=== PATIENT | male | born 1980 ===

== ENCOUNTER 2017-08-12 15:09 | Inpatient (IN) | payer OTHER ==
[2017-08-12] MEDS ORDERED: Sodium Chloride 0.9% 1,000 ML IV STA (16:08)
[2017-08-12] MEDS ORDERED: Piperacillin/Tazobact 3.375 GM in Sodium Chloride 0.9% 100 ML IVPB STA (16:35)
[2017-08-12 16:36] LABS: VENOUS BLOOD GAS BASE EXCESS -12.2 mmol/L (0.0-2.0); VENOUS BLOOD GAS PCO2 62 mmHg (40-60); VENOUS BLOOD GAS PO2 48 mm/Hg (30-55); VENOUS BLOOD PH 7.08 (7.32-7.43)
[2017-08-12] MEDS ORDERED: Vancomycin 1 g Inj ONE (16:43)
[2017-08-12] MEDS ORDERED: Piperacillin/Tazobact 3.375 gm Inj IVPB ONE (16:43)
--- NOTE | 2017-08-12 16:43 | RAD ---
HISTORY: Sepsis Patient COMPARISON: 2015 FINDINGS: LUNGS: No active pulmonary disease. PLEURA: No significant pleural effusion identified, no pneumothorax apparent. CARDIOVASCULAR: Normal. OSSEOUS STRUCTURES: No significant abnormalities. VISUALIZED UPPER ABDOMEN: Normal. OTHER FINDINGS: None. IMPRESSION: No active disease.
[2017-08-12 16:48] LABS: ABG ALLEN TEST YES; ARTERIAL BLOOD GAS HEMOGLOBIN 16.8 g/dL (11.7-17.4); ARTERIAL BLOOD GAS O2 CAPACITY 22.4 mL/dL (16-24); ARTERIAL BLOOD GAS O2 CONTENT 21.6 ML/dL (15-23); ARTERIAL BLOOD GAS O2 SAT 96.6 % (95-98); ARTERIAL BLOOD GAS PCO2 34 mm/Hg (35-45); ARTERIAL BLOOD GAS PH 7.41 (7.35-7.45); ARTERIAL BLOOD GAS PO2 78 mm/Hg (80-100); ARTERIAL BLOOD GAS TCO2 22.6 mmol/L (22-28)
[2017-08-12 17:23] LABS: BASO # 0.1 K/uL (0.0-0.2); BASO % 0.6 % (0.0-2.0); EOS # 0.1 K/uL (0.0-0.7); EOS % 0.4 % (0.0-4.0); HEMOGLOBIN 17.7 g/dL (12.0-18.0); LYMPH # 3.6 K/uL (1.0-4.3); LYMPH % 23.3 % (20.0-40.0); MEAN CELL VOLUME 91.4 fl (80.0-94.0); MEAN CORPUSCULAR HEMOGLOBIN 33.2 pg (27.0-31.0); MEAN CORPUSCULAR HGB CONC 36.3 g/dL (33.0-37.0); MEAN PLATELET VOLUME 13.3 fl (7.2-11.7); MONO # 0.7 K/uL (0.0-0.8); MONO % 4.8 % (0.0-10.0); NEUT # 11.1 K/uL (1.8-7.0); NEUT % 70.9 % (50.0-75.0); NRBC % 1.7 % (0.0-0.0); RBC 5.33 Mil/uL (4.40-5.90); RED CELL DISTRIBUTION WIDTH 12.9 % (11.5-14.5); WHITE BLOOD COUNT 15.6 K/uL (4.8-10.8)
[2017-08-12 17:28] LABS: INR 1.1 (0.9-1.2); PARTIAL THROMBOPLASTIN TIME 32.6 Seconds (25.6-37.1); PROTHROMBIN TIME 11.8 Seconds (9.8-13.1)
[2017-08-12 17:49] LABS: BLOOD UREA NITROGEN 17 mg/dl (9-20)
[2017-08-12] MEDS ORDERED: Insulin Regular 100 units/ml IV STA (17:49)
[2017-08-12 17:50] LABS: CALCIUM 10.6 mg/dL (8.4-10.2); GFR AFRICAN-AMERICAN > 60; GFR NON-AFRICAN AMERICAN > 60
[2017-08-12 17:51] LABS: ALB/GLOB RATIO 0.7 (1.0-2.1); ALBUMIN 4.8 g/dL (3.5-5.0); AST/SGOT 59 U/L (17-59)
[2017-08-12 17:52] LABS: ALT/SGPT 69 U/L (21-72); LIPASE 67 U/L (23-300)
[2017-08-12] MEDS ORDERED: Glucagon Recombinant 1 mg Inj IM PRN (17:53)
[2017-08-12] MEDS ORDERED: Dextrose 50% SYRINGE Inj (50 ml) IV PRN (17:53)
[2017-08-12] MEDS ORDERED: Sodium Chloride 0.9% 1,000 ML IV SCH (18:00)
--- NOTE | 2017-08-12 18:00 | ED PDOC ---
HPI: General Adult Time Seen by Provider: 08/12/17 15:47 Chief Complaint (Nursing): Flu-like Symptoms Chief Complaint (Provider): Flu-like Symptoms History Per: Patient History/Exam Limitations: no limitations Additional Complaint(s): 36 year old male with a past medical history of diabetes (insulin dependant and compliant),presents to the emergency department with a complaint of chills, lower back, and leg pain x2 days. Associated with sweats, chills, and body aches. Patient has a history of sciatica to the right side that radiates from the lower back to the right leg. Patient is currently on Percocet for pain and goes to pain management. Denies fever. Patient reports he can not recall if he took his insulin yesterday. PMD: Dr. Mo Canas MD Past Medical History Reviewed: Historical Data, Nursing Documentation, Vital Signs Vital Signs: Last Vital Signs Temp 98.7 F 08/12/17 18:18 Pulse 120 H 08/12/17 18:18 Resp 17 08/12/17 18:18 BP 136/92 H 08/12/17 18:18 Pulse Ox 95 08/12/17 18:58 - Medical History PMH: Arthritis, Back Problems (SCIATICA), Diabetes (type II), HTN, Hypercholesterolemia Denies: Anxiety, Bipolar Disorder, Depression, HIV, Personality Disorder, Post Traumatic Stress Disorder, Chronic Kidney Disease, Schizophrenia - Surgical History Surgical History: No Surg Hx - Family History Family History: States: Unknown Family Hx - Immunization History Hx Tetanus Toxoid Vaccination: No Hx Influenza Vaccination: No Hx Pneumococcal Vaccination: No - Allergies Allergies/Adverse Reactions: Allergies Allergy/AdvReac Type Severity Reaction Status Date / Time No Known Allergies Allergy Verified 06/08/16 16:24 Review of Systems ROS Statement: Except As Marked, All Systems Reviewed And Found Negative (As per HPI, otherwise negative) Constitutional: Positive for: Chills, Sweats, Other (Body aches). Negative for : Fever Musculoskeletal: Positive for: Back Pain (Lower), Leg Pain Physical Exam - Reviewed Nursing Documentation Reviewed: Yes Vital Signs Reviewed: Yes - Physical Exam Appears: Positive for: Non-toxic, No Acute Distress (Not appearing well) Head Exam: Positive for: ATRAUMATIC, NORMAL INSPECTION, NORMOCEPHALIC Skin: Positive for: Warm, Diaphoresis Eye Exam: Positive for: Normal appearance, EOMI, PERRL Neck: Positive for: Normal, Painless ROM, Supple Cardiovascular/Chest: Positive for: Regular Rate, Rhythm, Tachycardia (with regular rhythm). Negative for: JVD, Murmur Respiratory: Positive for: Normal Breath Sounds. Negative for: Accessory Muscle Use, Respiratory Distress Gastrointestinal/Abdominal: Positive for: Normal Exam, Soft. Negative for: Tenderness Back: Positive for: Other (Lower right back tenderness to the paraspinal region with upper buttock point tenderness). Negative for: Normal Inspection Extremity: Positive for: Normal ROM. Negative for: Pedal Edema Neurologic/Psych: Positive for: Alert, Oriented (x3) - Laboratory Results Result Diagrams: 08/12/17 16:45 08/12/17 16:45 - ECG ECG: Positive for: Interpreted By Me, Viewed By Me ECG Rhythm: Positive for: Normal QRS, Normal ST Segment, Sinus Rhythm, Sinus Tachycardia. Negative for: ST/T Changes Rate: 124 O2 Sat by Pulse Oximetry: 95 (RA) Pulse Ox Interpretation: Normal - Radiology X-Ray: Viewed By Me, Read By Radiologist X-Ray Interpretation: No Acute Disease - Physician Consult Information Physician Contacted: Roshan Kim - Critical Care Total Time (In Min): 60 Documented Critical Care: Time excludes all time spent performint seperately billable procedures Medical Decision Making Medical Decision Making: Time:160 Initial impression: Infectious process and sciatica differential include influenza, urinary tract infection (UTI), sepsis, and other sources of infection such as pneumonia and abdominal pathology. Also consider diabetic ketoacidosis (DKA) because patient is hyperglycemic. Initial plan: EKG Morphine 4 mg IV Sodium Chloride 1L IV Zofran 4 gm IV Abdomen & pelvis CT reevaluation Time:1641 --Chest x-ray FINDINGS: LUNGS: No active pulmonary disease. PLEURA: No significant pleural effusion identified, no pneumothorax apparent. CARDIOVASCULAR: Normal. OSSEOUS STRUCTURES: No significant abnormalities. VISUALIZED UPPER ABDOMEN: Normal. OTHER FINDINGS: None. IMPRESSION: No active disease. Time: 164 CBC w/ diff Erythrocyte Sedimentation Vancomycin 1 gm IV Piperacillin 3.375 gm IVPB Blood culture Urine Culture WBC: 15.6 (High) Time: 1710 Urine DIP Influenza AB Time: 1749 --Insulin 10 UNITS IV Time: 2000 VBG Shock Panel 1700 History, exam, and labs are consistent with SIRS and DKA. There is no apparent source of infection thus there is no sepsis although suspicion still exists at this early stage. Elevated lactic acid is contributed to DKA and dehydration. I discussed case with blast furnace supervisor Dr Kim who agrees there are no criteria for sepsis with septic shock at this time. Time: 1754 -- Spoke to [employer] Dr. Kim for admission for DKA and SIRS under the care of PCP. --Admission as inpatient in intensive care for DKA, SIRS, and possible Sepsis under the care of Dr. Mo Canas MD Scribe Attestation: Documented by Alayna Styles, acting as a scribe for Kamryn Jackson MD. Provider Scribe Attestation: All medical record entries made by the Scribe were at my direction and personally dictated by me. I have reviewed the chart and agree that the record accurately reflects my personal performance of the history, physical exam, medical decision making, and the department course for this patient. I have also personally directed, reviewed, and agree with the discharge instructions and disposition. Disposition - Clinical Impression Clinical Impression: SIRS (systemic inflammatory response syndrome), DKA (diabetic ketoacidoses), Sciatica neuralgia - Patient ED Disposition Is Patient to be Admitted: Yes Discussed With Dr.: Mo Canas Doctor Will See Patient In The: Hospital Counseled Patient/Family Regarding: Studies Performed, Diagnosis - Disposition Disposition Time: 17:00 Condition: SERIOUS - Pt Status Changed To: Hospital Disposition Of: Inpatient - Admit Certification Admit to Inpatient:: After my assessment, the patient will require hospitalization for at least two midnights. This is because of the severity of symptoms shown, intensity of services needed, and/or the medical risk in this patient being treated as an outpatient. - POA Present On Arrival: Poor Glycemic Control
[2017-08-12] MEDS ORDERED: Insulin Regular 100 units/ml ONE (18:09)
[2017-08-12] MEDS ORDERED: Oxycodone/Acetaminophen 5/325 mg Tab PO PRN ×2 (18:41→21:55)
[2017-08-12] MEDS ORDERED: Sodium Chloride 0.9% 50 ML IV ONE (18:47)
[2017-08-12] MEDS ORDERED: Iohexol 300 100 ML IJ ONE (18:47)
[2017-08-12] MEDS ORDERED: Oxycodone/Acetaminophen 5/325 mg Tab ONE (19:36)
[2017-08-12 20:49] LABS: VENOUS BLOOD GAS BASE EXCESS 1.9 mmol/L (0.0-2.0); VENOUS BLOOD GAS PCO2 41 mmHg (40-60); VENOUS BLOOD GAS PO2 50 mm/Hg (30-55); VENOUS BLOOD PH 7.42 (7.32-7.43)
[2017-08-12] MEDS: Sodium Chloride 0.9% 1,000 ML IV SCH (22:00)
[2017-08-13] MEDS: Oxycodone/Acetaminophen 5/325 mg Tab PO PRN ×6 (00:15→21:59)
[2017-08-13 00:48] VITALS: BMI 30.5
[2017-08-13] MEDS ORDERED: Oxycodone/Acetaminophen 5/325 mg Tab PO SCH (01:00)
[2017-08-13 01:06] LABS: URINE BILIRUBIN NEGATIVE (NEGATIVE); URINE BLOOD NEGATIVE (NEGATIVE); URINE CLARITY CLEAR (Clear); URINE COLOR YELLOW (YELLOW); URINE GLUCOSE (UA) >=500 mg/dL (Normal); URINE LEUKOCYTE ESTERASE NEG Leu/uL (Negative); URINE NITRATE NEGATIVE (NEGATIVE); URINE PROTEIN NEGATIVE (NEGATIVE); URINE UROBILINOGEN 0.2-1.0 mg/dL (0.2-1.0)
[2017-08-13 01:21] LABS: BARBITURATES, UR NEGATIVE (NEGATIVE); PHENCYCLIDINE, UR NEGATIVE (NEGATIVE)
[2017-08-13 01:22] LABS: BENZODIAZEPINES, UR POSITIVE (NEGATIVE); OPIATES, UR POSITIVE (NEGATIVE)
[2017-08-13] MEDS: Sodium Chloride 0.9% 1,000 ML IV SCH (02:30)
[2017-08-13 06:26] LABS: HEMOGLOBIN 13.5 g/dL (12.0-18.0); MEAN CELL VOLUME 91.4 fl (80.0-94.0); MEAN CORPUSCULAR HEMOGLOBIN 31.5 pg (27.0-31.0); MEAN CORPUSCULAR HGB CONC 34.5 g/dL (33.0-37.0); RBC 4.27 Mil/uL (4.40-5.90); WHITE BLOOD COUNT 12.3 K/uL (4.8-10.8)
[2017-08-13 06:37] LABS: ALBUMIN 3.7 g/dL (3.5-5.0); ALT/SGPT 51 U/L (21-72); AST/SGOT 35 U/L (17-59); BLOOD UREA NITROGEN 13 mg/dl (9-20); CALCIUM 8.5 mg/dL (8.4-10.2); GFR AFRICAN-AMERICAN > 60; GFR NON-AFRICAN AMERICAN > 60
[2017-08-13] MEDS ORDERED: Insulin Detemir 100 Units/ml Inj SC STA (07:40)
--- NOTE | 2017-08-13 11:38 | CT ---
PROCEDURE: CT Abdomen and Pelvis with contrast HISTORY: vomiting back pain COMPARISON: None. TECHNIQUE: Contrast dose: 98 cc Omnipaque Radiation dose: Total exam DLP = 989 mGy-cm. This CT exam was performed using one or more of the following dose reduction techniques: Automated exposure control, adjustment of the mA and/or kV according to patient size, and/or use of iterative reconstruction technique. FINDINGS: LOWER THORAX: Lungs are clear. No effusion is seen. No pericardial effusion is noted. Visualized esophagus is unremarkable. Visualized stomach is within normal limits. LIVER: Liver is enlarged and abnormally decreased in overall density consistent with moderate fatty infiltration. No focal liver mass or intrahepatic ductal dilatation is noted. Noted in the columba hepatis region are nonspecific mildly enlarged lymph nodes, for example on axial image 27 series 2 there is a 2.6 centimeter by 1.3 centimeter lymph node. GALLBLADDER AND BILE DUCTS: Gallbladder slightly distended without wall thickening or gallstones. Common bile duct is normal in size. No intrahepatic ductal dilatation is noted. PANCREAS: Unremarkable. No gross lesion or ductal dilatation. SPLEEN: Unremarkable. ADRENALS: Unremarkable. No mass. KIDNEYS AND URETERS: Unremarkable. No hydronephrosis. No solid mass. VASCULATURE: Unremarkable. No aortic aneurysm. BOWEL: Unremarkable. No obstruction. No gross mural thickening. No bowel obstruction or pericolonic inflammatory change is seen. APPENDIX: Normal appendix. PERITONEUM: No ascites is seen. No significant mesenteric adenopathy is noted. No pelvic or inguinal adenopathy is seen. LYMPH NODES: Unremarkable. No enlarged lymph nodes. BLADDER: Distended bladder without wall thickening. REPRODUCTIVE: No inguinal hernias. Normal prostate gland. BONES: Mild degenerative disc disease at L5-S1 with chronic disc osteophyte complex noted. Lesser degree at L4-5. No lytic lesion OTHER FINDINGS: No inguinal hernias. IMPRESSION: Moderate nonspecific diffuse fatty infiltration of the liver without focal mass or intrahepatic ductal dilatation. Mildly enlarged columba hepatis lymph nodes, also nonspecific. No appreciable acute inflammatory process in the abdomen or pelvis. No appreciable pancreatitis. No evidence of cholecystitis. No perinephric changes seen. No colitis. This agrees with preliminary report provided by the on-call radiologist from [facility].
--- NOTE | 2017-08-13 11:53 | CARD ---
APPROVED REPORT EKG Measurement Heart [id number] ID [id number] <Conclusion> Sinus tachycardia Possible Left atrial enlargement Borderline ECG
[2017-08-13] MEDS: Insulin Regular 100 units/ml SC SCH ×3 (12:25→22:06)
--- NOTE | 2017-08-13 15:47 | HP ---
HISTORY OF PRESENT ILLNESS: Mr. Rosales is a 36-year-old male who was admitted via the emergency room after he showed up complaining of fever with chills for 2 days prior to presentation. He also has history of back pains, which have worsened over the past several days. He was evaluated in the emergency room and found to have diabetic ketoacidosis requiring intensive care workup and therapy. His blood sugar was 471. He appeared dehydrated and was acidotic. PAST MEDICAL HISTORY: Diabetes mellitus and there is a question of followup and therapy. He also has back pain due to sciatica and arthritis and hyperlipidemia. FAMILY HISTORY: Noncontributory. SOCIAL HISTORY: He does not drink or smoke and lives at home with . REVIEW OF SYSTEMS: Essentially unremarkable except for back pains. PHYSICAL EXAMINATION: GENERAL: The patient is alert, oriented, appears to have improved following IV hydration and insulin drip. VITAL SIGNS: On admission, blood pressure 136/92 with a pulse of 120, respiratory rate was 17 per minute, O2 sat 95% on room air, temperature 98.7 degrees Fahrenheit. HEENT: Mouth, dry oral mucosa. JVP flat. Eyes are sunken. LUNGS: Clear. HEART: Regular with tachycardia. ABDOMEN: Soft, nontender. No organomegaly. EXTREMITIES: No edema or cyanosis. CENTRAL NERVOUS SYSTEM: Grossly intact. SKIN: Showed poor turgor. LABORATORY DATA: Remarkable for WBC of 15.6, hemoglobin 17.7, platelet count 397,000. Sodium 136, potassium 5.9, BUN 17, creatinine 0.7, serum glucose 471. Venous blood gas; pH 7.0, pCO2 of 62, bicarbonate 14.5, and pO2 of 77.7 saturation. Chest x-ray shows no acute cardiopulmonary pathology. IMPRESSION: Diabetic ketoacidosis, probably secondary to some form of infection, source of infection to be determined. PLAN: Intravenous hydration and insulin drip. We would obtain Endocrinology evaluation. Empiric antibiotic therapy already started following john cultures. Further therapy will depend on findings. The patient is advised compliance to medication and diet Mo Canas MD
[2017-08-14] MEDS: Oxycodone/Acetaminophen 5/325 mg Tab PO PRN ×5 (04:51→22:02)
[2017-08-14 06:26] LABS: BASO % 0.4 % (0.0-2.0); EOS # 0.2 K/uL (0.0-0.7); EOS % 2.2 % (0.0-4.0); HEMOGLOBIN 13.6 g/dL (12.0-18.0); LYMPH # 3.8 K/uL (1.0-4.3); LYMPH % 41.3 % (20.0-40.0); MEAN CELL VOLUME 93.6 fl (80.0-94.0); MEAN CORPUSCULAR HEMOGLOBIN 31.6 pg (27.0-31.0); MEAN CORPUSCULAR HGB CONC 33.8 g/dL (33.0-37.0); MEAN PLATELET VOLUME 11.2 fl (7.2-11.7); MONO % 11.3 % (0.0-10.0); NEUT # 4.1 K/uL (1.8-7.0); NEUT % 44.8 % (50.0-75.0); NRBC % 0.1 % (0.0-0.0); RBC 4.31 Mil/uL (4.40-5.90); RED CELL DISTRIBUTION WIDTH 12.9 % (11.5-14.5); WHITE BLOOD COUNT 9.1 K/uL (4.8-10.8)
[2017-08-14 06:40] LABS: GFR AFRICAN-AMERICAN > 60; GFR NON-AFRICAN AMERICAN > 60
[2017-08-14 06:48] LABS: BLOOD UREA NITROGEN 11 mg/dl (9-20)
[2017-08-14] MEDS: Insulin Regular 100 units/ml SC SCH (08:00)
--- NOTE | 2017-08-14 08:42 | PN ---
DATE: 08/13/2017 LOCATION: Patient in ICU, bed 434. TIME SPENT: 35 minutes. SUBJECTIVE: Patient is seen and evaluated at the bed side. Events since admission are reviewed. Overnight, on insulin drip protocol. Remained normotensive, afebrile. No new complaints other than pain on the right leg. This morning alert, awake, follows commands appropriate, feels hungry. No other complaints. PHYSICAL EXAMINATION: VITAL SIGNS: Temperature 97.4, heart rate 109, respiratory rate 14, blood pressure 113/74, oxygen saturation 95%. Intake 1525, output 550, positive balance 975. Weight 195 pounds. HEAD, EYES, EARS, NOSE, AND THROAT: Pupils are reactive. Conjunctivae are pink. Sclerae are white. NECK: Supple. Trachea is central. CHEST: Bilateral breath sounds. Clear to auscultation. HEART: Rhythm regular. S1, S2 normal intensity. No S3, S4 gallop. No audible murmur. ABDOMEN: Bowel sounds present. Soft. Liver and spleen not palpable. Bladder not distended. EXTREMITIES: No clubbing, cyanosis, edema. NEUROLOGIC: Nonfocal. CURRENT MEDICATIONS: Glipizide 10 mg p.o. b.i.d.; metformin 500 mg b.i.d.; Accu-Chek with regular insulin coverage; oxycodone with acetaminophen 5/325 mg two tablets p.o. p.r.n. for severe pain, one tablet q. 4 p.r.n. for moderate pain. LABORATORY DATA: WBC 12.3, hemoglobin 13.5, hematocrit 39, platelet count 177; PT 11.8, INR 1.1, PTT 32.6. ABG: pH 7.42, pCO2 of 41. Random sodium 133, chloride of 102, glucose 331. SMA-7: Sodium 137, potassium 4.1, chloride 101, CO2 of 27, blood urea nitrogen 13, creatinine 0.6, random glucose 253, calcium 8.5. Total bilirubin 0.5, AST 35, ALT 51, alkaline phosphatase 90, total protein 7.6, albumin 3.7, lipase 67. Urine drug screen positive for benzodiazepine and opiates. Serology: Influenza A and B are negative. Microbiology: None reported. Chest x-ray: Unremarkable. Abdominal and pelvis CT done, report pending. IMPRESSION: A 36-year-old male with history of insulin-requiring diabetes mellitus type 2, chronic back ache/sciatica, admitted with diabetic ketoacidosis, now resolved. PLAN: Discontinue insulin drip, given Levemir at 20 units. Follow with Accu-Chek with regular insulin coverage. Add metformin and glyburide taking at home and Endocrinology consult requested to optimize his medications before discharge. Continue Percocet for chronic back ache. Patient can be transferred to med/surgical floor for optimization of his blood sugar control. Roshan Kim MD
--- NOTE | 2017-08-14 08:44 | CON ---
DATE: 08/12/2017 CRITICAL CARE CONSULTATION HISTORY OF PRESENT ILLNESS: The patient is being admitted to ICU. The patient is seen and evaluated at the bedside. Events in ER discussed with ER physician. A 36-year-old male with past medical history significant for diabetes mellitus type 2, requiring insulin; hypertension; hyperlipidemia and chronic backache diagnosed as sciatica, being followed by Dr. Arora as outpatient, has been on morphine sulfate, Percocet, cyclobenzaprine, diazepam, in addition to his atorvastatin for hyperlipidemia, glipizide, metformin and Humalog insulin three times a day for diabetes mellitus type 2. The patient fills up the narcotics from [facility] and rest of the other medications from [facility] pharmacy. Reports that patient picked up Humalog insulin on , glipizide and metformin on August 02. As he ran out his pain medications and as he was feeling feverish with chills, came to Emergency Room. In ER, the patient's vital signs showed a temperature 98.7, heart rate 122, respiratory rate 21, blood pressure 120/97, pulse oximetry 95%. Initial lab data showed leukocytosis, high anion gap, metabolic acidosis with hyperglycemia and elevated lactate level. Chest x-ray showed no acute infiltrate. Influenza A and B pending. The patient is admitted to ICU for evaluation of diabetic ketoacidosis with high anion gap metabolic acidosis and for possible narcotic withdrawal. ALLERGIES: NONE. FAMILY HISTORY: Noncontributory. SOCIAL HISTORY: Denies smoking or drinking alcohol. Denies recreational drug use. PHYSICAL EXAMINATION: GENERAL: Well-built male, in no acute distress, alert and oriented to name, place and time. VITAL SIGNS: Temperature 98.7, heart rate 120, blood pressure 136/92, mean arterial pressure 106, respiratory rate of 17, thoracoabdominal, saturating 97%. HEAD, EYES, EARS, NOSE AND THROAT: Pupils reactive. Conjunctivae pink. Sclerae white. NECK: Supple. Trachea central. CHEST: Bilateral breath sounds. Clear to auscultation. HEART: Rhythm regular. S1, S2 normal intensity, but rapid. No S3, S4 gallop. No audible murmur. ABDOMEN: Bowel sounds present, soft. Liver and spleen not palpable. Bladder not distended. EXTREMITIES: No clubbing, no cyanosis. SLR negative. NEUROLOGIC: No cranial nerve deficit. No motor sensory impairment. Patellar 2+. Plantar flexor. LABORATORY DATA: WBC 15.6, hemoglobin 17.5, hematocrit 48.7, platelet count of 397, neutrophils 70.9, lymphocytes 23.3, monocytes 4.8. PT 11.8, INR 1.1, PTT 32.6. ABG, pH 7.41, pCO2 34, pO2 78, oxygen saturation 96.6%. SMA-7: Sodium 136, potassium 5.9, chloride 91, CO2 15, blood urea nitrogen 17, creatinine 0.7, random glucose 471, calcium 10.6. Total bilirubin 1.8, AST 59, ALT 69, alkaline phosphatase 158, total protein 11.6, albumin 4.8, lipase 67. Influenza A and B negative. Microbiology blood culture report pending. Chest x-ray, no acute infiltrate. IMPRESSION: A 36-year-old male with history significant for insulin requiring diabetes mellitus type 2, hyperlipidemia, sciatica, on multiple narcotics, presenting with feeling feverish and chill, and pain on right leg, not worse than from his previous pain for 3 years, noted to have hyperglycemia with high anion gap metabolic acidosis. No clear evidence of infection. Lipase is within normal limits, noted abnormal liver functions probably related to fatty liver, needs further workup. Treat for diabetic ketoacidosis with IV hydration, regular insulin drip. Continue gastrointestinal prophylaxis. Septic workup to evaluate for any underlying infection though clinically less likely. Roshan Kim MD
[2017-08-14] MEDS ORDERED: Insulin Regular 100 units/ml SC SCH (08:50)
--- NOTE | 2017-08-14 08:52 | CP.PCM.PN ---
Subjective - Date & Time of Evaluation Date of Evaluation: 08/14/17 Time of Evaluation: 08:52 - Subjective Subjective: STILL HAS EPISODES OF SWEATING SERUM GLU STILL POORLY CONTROLLED Objective - Vital Signs/Intake and Output Vital Signs (last 24 hours): Temp Pulse Resp BP Pulse Ox 97.8 F 79 20 108/69 95 08/14/17 07:57 08/14/17 07:57 08/14/17 07:57 08/14/17 07:57 08/14/17 07:57 - Medications Medications: Current Medications Glipizide (Glucotrol) 10 mg PO BIDAC [facility] Last Admin: 08/13/17 17:00 Dose: 10 mg Insulin Detemir (Levemir) 20 units SC HS [facility] Metformin HCl (Glucophage) 500 mg PO BIDWM [facility] Last Admin: 08/13/17 17:00 Dose: 500 mg Oxycodone/Acetaminophen (Percocet 5/325 Mg Tab) 2 tab PO Q4 PRN PRN Reason: Pain, severe (8-10) Stop: 08/15/17 21:12 Last Admin: 08/14/17 04:51 Dose: 2 tab Oxycodone/Acetaminophen (Percocet 5/325 Mg Tab) 1 tab PO Q4 PRN PRN Reason: Pain, moderate (4-7) Stop: 08/16/17 01:01 - Labs Labs: 08/14/17 06:00 08/14/17 06:00 PT 11.8 Seconds (9.8-13.1) 08/12/17 16:45 INR 1.1 (0.9-1.2) 08/12/17 16:45 APTT 32.6 Seconds (25.6-37.1) 08/12/17 16:45 - Constitutional Appears: No Acute Distress - Head Exam Head Exam: ATRAUMATIC, NORMAL INSPECTION, NORMOCEPHALIC - Eye Exam Eye Exam: EOMI, Normal appearance, PERRL Pupil Exam: NORMAL ACCOMODATION, PERRL - ENT Exam ENT Exam: Mucous Membranes Moist, Normal Exam - Neck Exam Neck Exam: Full ROM, Normal Inspection. absent: Lymphadenopathy - Respiratory Exam Respiratory Exam: Clear to Ausculation Bilateral, NORMAL BREATHING PATTERN - Cardiovascular Exam Cardiovascular Exam: REGULAR RHYTHM, +S1, +S2. absent: Murmur - GI/Abdominal Exam GI & Abdominal Exam: Soft, Normal Bowel Sounds. absent: Tenderness - Rectal Exam Rectal Exam: NORMAL INSPECTION - Extremities Exam Extremities Exam: Full ROM, Normal Capillary Refill, Normal Inspection. absent : Joint Swelling, Pedal Edema - Back Exam Back Exam: NORMAL INSPECTION - Neurological Exam Neurological Exam: Alert, Awake, CN II-XII Intact, Normal Gait, Oriented x3 - Psychiatric Exam Psychiatric exam: Normal Affect, Normal Mood - Skin Skin Exam: Dry, Intact, Normal Color, Warm Assessment and Plan - Assessment and Plan (Free Text) Assessment: DKA--IMPROVED Plan: CONTINUE RX ORDERED
[2017-08-14] MEDS: Insulin Lispro (humaLOG) 100 Units/ml Inj SC SCH ×5 (11:41→22:04)
[2017-08-14] MEDS ORDERED: Insulin Detemir 100 Units/ml Inj SC SCH (22:00)
--- NOTE | 2017-08-14 22:36 | CON ---
DATE: ENDOCRINOLOGY CONSULTATION LOCATION: Room 665. HISTORY OF PRESENT ILLNESS: This is a 36-year-old male with known history of type 1 insulin-dependent diabetes, presenting here with generalized body weakness and supervening progressive shortness of breath with fevers, chills, and rigors and has been evaluated initially to be in diabetic ketoacidosis and was on insulin drip infusion and currently on a low-dose algorithm coverage for regular insulin as given. He is also undergoing workup for systemic inflammatory syndrome as noted with an infectious disease workup ongoing at this time, for possible bacteremia as noted. PAST MEDICAL HISTORY: History of type 1 insulin-dependent diabetes, on a combination of both oral hypoglycemic therapy and insulin therapy with a combination of metformin and glipizide given twice daily with Humalog given as 10 units t.i.d. before meals. No apparent long acting insulin has been given at this time. History of chronic pain syndrome with lumbar disk disease and sciatica and has had dependence on narcotic analgesics for pain relief and currently being followed closely by Anesthesia in the pain management clinic with Dr. Arora as noted. He is on a combination of Percocet with morphine preparations and muscle relaxants as noted. History of hypertension and dyslipidemia. FAMILY HISTORY: Positive for diabetes and hypertension. SOCIAL HISTORY: The patient has a supportive family. No known substance use. REVIEW OF SYSTEMS: As mentioned above. Admits to generalized body weakness with increasing bouts of dizziness and lightheadedness and easy fatigability and tiredness as noted thereof. No chest pains or palpitations, but admits to go episodic shortness of breath especially on exertion. His oral intake has been variable with nausea, dyspepsia, and habitual constipation. Also admits to marked polyuria and nocturia as noted. PHYSICAL EXAMINATION: GENERAL: This is an average-built male, in no apparent distress. VITAL SIGNS: Blood pressure of 150/90, pulse of 70 beats per minute and regular, temperature 98, respirations 20, height is 5 feet 7 inches, weight is 195 pounds. HEENT: Head normocephalic. Eyes anicteric with pink conjunctivae. Funduscopy not possible at this time. Ears, nose, and throat otherwise normal. NECK: Supple. Thyroid gland is normal in size. No carotid bruits or cervical adenopathy. CARDIOPULMONARY: Some adynamic precordium. S1, S2 is rapid and regular. LUNGS: Clear to auscultation. ABDOMEN: Flat, soft with positive bowel sounds. EXTREMITIES: No peripheral edema. Pulses are +2 bilaterally. LABORATORY DATA: The chemistries showed a BUN of 11, sodium 138, potassium 4.5, chloride 103, CO2 of 23, glucose 237, and creatinine 0.4. The glucose levels have ranged from 218 to 237 and 253 mg/dL. ASSESSMENT: This is a 36-year-old male with uncontrolled and decompensated type 1 insulin-dependent diabetes, presenting here with diabetic ketoacidosis and dehydration and is now being followed closely for metabolic management. PLAN OF MANAGEMENT. We will switch the patient over to a basal and bolus insulin drug combination, which is more physiologic and we will really optimize his metabolic control thereof. We will start him on Levemir at 20 units subcu at bedtime daily to start tonight. We will also add Humalog given as 6 units subcu t.i.d. before meals to start at lunchtime today as ordered. We will modify the coverage scale to obviate hypoglycemia and detailed orders have been given. We will obtain serial chemistries and supplement accordingly as needed. We will also continue the metformin given as 500 mg b.i.d. with meals with glipizide given as 10 mg b.i.d. before meals as ordered. We will titrate incremental as indicated to optimize metabolic control. We will also obtain a serum C-peptide to ascertain his endogenous pancreatic and whether he really is a truly type 1 insulin-dependent diabetic versus type 2 insulin-requiring diabetic as noted thereof. This will also qualify him for an insulin pump on the outpatient for optimal metabolic control of this diabetic condition. We will follow. Lolis Goss MD
[2017-08-14 23:26] VITALS: RESP 20
[2017-08-15] MEDS: Oxycodone/Acetaminophen 5/325 mg Tab PO PRN ×2 (02:42→07:34)
[2017-08-15 07:06] LABS: ALBUMIN 4.3 g/dL (3.5-5.0); ALT/SGPT 64 U/L (21-72); AST/SGOT 42 U/L (17-59); BLOOD UREA NITROGEN 11 mg/dl (9-20); CALCIUM 9.5 mg/dL (8.4-10.2); GFR AFRICAN-AMERICAN > 60; GFR NON-AFRICAN AMERICAN > 60
[2017-08-15 08:13] VITALS: BP 128/88; PULSE 98; TEMP 97.3; O2SAT 95
[2017-08-15] MEDS: Insulin Lispro (humaLOG) 100 Units/ml Inj SC SCH ×2 (08:18→08:20)
--- NOTE | 2017-08-15 08:50 | CP.PCM.DIS ---
Provider - Provider Date of Admission: 08/12/17 17:55 Attending physician: Mo Cespedes MD Time Spent in preparation of Discharge (in minutes): 35 Diagnosis - Discharge Diagnosis (1) DKA (diabetic ketoacidoses) Status: Acute (2) SIRS (systemic inflammatory response syndrome) Status: Acute (3) Sciatica neuralgia Status: Acute (4) Back pain Status: Acute (5) Diabetic complication Status: Acute (6) Hyperglycemia Status: Acute Hospital Course - Lab Results Lab Results: Micro Results 08/12/17 16:30 Blood Blood Culture - Preliminary NO GROWTH AFTER 48 HOURS 08/12/17 16:15 Blood Blood Culture - Preliminary NO GROWTH AFTER 48 HOURS 08/12/17 06:40 Nose MRSA Culture (Admit) - Final MRSA NOT DETECTED 08/13/17 00:58 Urine,Clean Catch Urine Culture - Final No Growth (<1,000 CFU/ML) 08/12/17 16:58 Urine Urine Culture - Final No Growth (<1,000 CFU/ML) Most Recent Lab Values WBC 9.1 K/uL (4.8-10.8) 08/14/17 06:00 RBC 4.31 Mil/uL (4.40-5.90) L 08/14/17 06:00 Hgb 13.6 g/dL (12.0-18.0) 08/14/17 06:00 Hct 40.3 % (35.0-51.0) 08/14/17 06:00 MCV 93.6 fl (80.0-94.0) D 08/14/17 06:00 MCH 31.6 pg (27.0-31.0) H 08/14/17 06:00 MCHC 33.8 g/dL (33.0-37.0) 08/14/17 06:00 RDW 12.9 % (11.5-14.5) 08/14/17 06:00 Plt Count 136 K/uL (130-400) 08/14/17 06:00 MPV 11.2 fl (7.2-11.7) 08/14/17 06:00 Neut % (Auto) 44.8 % (50.0-75.0) L 08/14/17 06:00 Lymph % (Auto) 41.3 % (20.0-40.0) H 08/14/17 06:00 [place] % (Auto) 11.3 % (0.0-10.0) H 08/14/17 06:00 Eos % (Auto) 2.2 % (0.0-4.0) 08/14/17 06:00 Baso % (Auto) 0.4 % (0.0-2.0) 08/14/17 06:00 Neut # 4.1 K/uL (1.8-7.0) 08/14/17 06:00 Lymph # 3.8 K/uL (1.0-4.3) 08/14/17 06:00 [place] # 1.0 K/uL (0.0-0.8) H 08/14/17 06:00 Eos # 0.2 K/uL (0.0-0.7) 08/14/17 06:00 Baso # 0.0 K/uL (0.0-0.2) 08/14/17 06:00 ESR 76 mm/hr (0-15) H 08/12/17 16:45 PT 11.8 Seconds (9.8-13.1) 08/12/17 16:45 INR 1.1 (0.9-1.2) 08/12/17 16:45 APTT 32.6 Seconds (25.6-37.1) 08/12/17 16:45 pCO2 34 mm/Hg (35-45) L 08/12/17 16:40 pO2 50 mm/Hg (30-55) 08/12/17 20:47 HCO3 23.0 mmol/L (21-28) 08/12/17 16:40 ABG pH 7.41 (7.35-7.45) 08/12/17 16:40 ABG Total CO2 22.6 mmol/L (22-28) 08/12/17 16:40 ABG O2 Saturation 96.6 % (95-98) 08/12/17 16:40 ABG O2 Content 21.6 ML/dL (15-23) 08/12/17 16:40 ABG Base Excess -2.2 mmol/L (-2.0-3.0) L 08/12/17 16:40 ABG Hemoglobin 16.8 g/dL (11.7-17.4) 08/12/17 16:40 ABG Carboxyhemoglobin 1.4 % (0.5-1.5) 08/12/17 16:40 POC ABG HHb (Measured) 3.2 % (0.0-5.0) 08/12/17 16:40 ABG Methemoglobin 3.9 % (0.0-3.0) H 08/12/17 16:40 ABG O2 Capacity 22.4 mL/dL (16-24) 08/12/17 16:40 J Carlos Test Yes 08/12/17 16:40 VBG pH 7.42 (7.32-7.43) 08/12/17 20:47 VBG pCO2 41 mmHg (40-60) 08/12/17 20:47 VBG HCO3 26.1 mmol/L 08/12/17 20:47 VBG Total CO2 27.9 mmol/L (22-28) 08/12/17 20:47 VBG O2 Sat (Calc) 87.0 % (40-65) H 08/12/17 20:47 VBG Base Excess 1.9 mmol/L (0.0-2.0) 08/12/17 20:47 VBG Potassium 4.6 mmol/L (3.6-5.2) 08/12/17 20:47 A-a O2 Difference 29.0 mm/Hg 08/12/17 16:40 Hgb O2 Saturation 91.5 % (95.0-98.0) L 08/12/17 16:40 Sodium 133.0 mmol/L (132-148) 08/12/17 20:47 Chloride 102.0 mmol/L (98-107) 08/12/17 20:47 Glucose 331 mg/dL (75-110) H 08/12/17 20:47 Lactate 1.5 mmol/L (0.7-2.1) 08/12/17 20:47 FiO2 21.0 % 08/12/17 20:47 Crit Value Called To Dr enrrique guajardo 08/12/17 16:30 Crit Value Called By Saranya 08/12/17 16:30 Crit Value Read Back Y 08/12/17 16:30 Blood Gas Notified Time 1636 08/12/17 16:30 Sodium 140 mmol/l (132-148) 08/15/17 05:50 Potassium 4.5 MMOL/L (3.6-5.0) 08/15/17 05:50 Chloride 101 mmol/L (98-107) 08/15/17 05:50 Carbon Dioxide 28 mmol/L (22-30) 08/15/17 05:50 Anion Gap 16 (10-20) 08/15/17 05:50 BUN 11 mg/dl (9-20) 08/15/17 05:50 Creatinine 0.6 mg/dl (0.8-1.5) L 08/15/17 05:50 Est GFR ( Amer) > 60 08/15/17 05:50 Est GFR (Non-Af Amer) > 60 08/15/17 05:50 POC Glucose (mg/dL) 266 mg/dL (65-110) H 08/15/17 06:00 Random Glucose 286 mg/dL (75-110) H 08/15/17 05:50 Hemoglobin A1c 13.6 % (4.2-6.5) H D 08/13/17 10:30 Calcium 9.5 mg/dL (8.4-10.2) 08/15/17 05:50 Total Bilirubin 0.4 mg/dl (0.2-1.3) 08/15/17 05:50 AST 42 U/L (17-59) 08/15/17 05:50 ALT 64 U/L (21-72) 08/15/17 05:50 Alkaline Phosphatase 95 U/L (38-126) 08/15/17 05:50 Total Protein 8.5 G/DL (6.3-8.2) H 08/15/17 05:50 Albumin 4.3 g/dL (3.5-5.0) 08/15/17 05:50 Globulin 4.2 gm/dL (2.2-3.9) H 08/15/17 05:50 Albumin/Globulin Ratio 1.0 (1.0-2.1) 08/15/17 05:50 Lipase 67 U/L (23-300) 08/12/17 16:45 Venous Blood Potassium 4.6 mmol/L (3.6-5.2) 08/12/17 20:47 Urine Color Yellow (YELLOW) 08/13/17 00:58 Urine Clarity Clear (Clear) 08/13/17 00:58 Urine pH 5.0 (5.0-8.0) 08/13/17 00:58 Ur Specific [place] 1.052 (1.003-1.030) H 08/13/17 00:58 Urine Protein Negative mg/dL (NEGATIVE) 08/13/17 00:58 Urine Glucose (UA) >=500 mg/dL (Normal) 08/13/17 00:58 Urine Ketones 20 mg/dL (NEGATIVE) 08/13/17 00:58 Urine Blood Negative (NEGATIVE) 08/13/17 00:58 Urine Nitrate Negative (NEGATIVE) 08/13/17 00:58 Urine Bilirubin Negative (NEGATIVE) 08/13/17 00:58 Urine Urobilinogen 0.2-1.0 mg/dL (0.2-1.0) 08/13/17 00:58 Ur Leukocyte Esterase Neg Isidra/uL (Negative) 08/13/17 00:58 Urine RBC (Auto) < 1 /hpf (0-3) 08/13/17 00:58 Urine Microscopic WBC 1 /hpf (0-5) 08/13/17 00:58 Urine Opiates Screen Positive (NEGATIVE) H 08/13/17 00:58 Urine Methadone Screen Negative (NEGATIVE) 08/13/17 00:58 Ur Barbiturates Screen Negative (NEGATIVE) 08/13/17 00:58 Ur Phencyclidine Scrn Negative (NEGATIVE) 08/13/17 00:58 Ur Amphetamines Screen Negative (NEGATIVE) 08/13/17 00:58 U Benzodiazepines Scrn Positive (NEGATIVE) H 08/13/17 00:58 U Oth Cocaine Metabols Negative (NEGATIVE) 08/13/17 00:58 U Cannabinoids Screen Negative (NEGATIVE) 08/13/17 00:58 Influenza Typ A,B (EIA) Negative for flu a/b (NEGATIVE) 08/12/17 17:28 - Hospital Course Hospital Course: FEELS BETTER NO APPARENT DISTRESS SERUM GLUCOSE BETTER CONTROLLED Discharge Exam - Head Exam Head Exam: ATRAUMATIC, NORMAL INSPECTION, NORMOCEPHALIC - Eye Exam Eye Exam: EOMI, Normal appearance, PERRL Pupil Exam: NORMAL ACCOMODATION, PERRL - GI/Abdominal Exam GI & Abdominal Exam: Normal Bowel Sounds - Rectal Exam Rectal Exam: NORMAL INSPECTION - Neurological Exam Neurological exam: Alert, CN II-XII Intact, Normal Gait, Oriented x3, Reflexes Normal - Psychiatric Exam Psychiatric exam: Normal Affect, Normal Mood - Skin Skin Exam: Dry, Intact, Normal Color, Warm Discharge Plan - Follow Up Plan Condition: SERIOUS Disposition: HOME/ ROUTINE Patient education suggested?: Yes Additional Instructions: DISCHARGE TODAY FOLLOW UP WITH DR CESPEDES
--- NOTE | 2017-08-15 11:17 | PN ---
DATE: ENDOCRINOLOGY FOLLOWUP NOTE LOCATION: Room 665. SUBJECTIVE: This is a 36-year-old male with recent uncontrolled type 1 insulin dependent diabetes presenting here with severe lower back pain and associated lower extremity paresthesias and dysesthesias, and is now being followed closely for metabolic management. His glycemic levels are fluctuating as ordered, and the latest glucose levels have ranged from 255 to 266 mg/dL. His latest chemistry showed a BUN of 11, sodium 140, potassium 4.5, chloride 101, CO2 of 28, glucose 286 and creatinine 0.6. ASSESSMENT AND PLAN: So, at this time, we will modify once again his basal and bolus insulin regimen and increase the Levemir to 26 units subcu at bedtime daily to start tonight. We will also increase the Humalog to 10 units subcu t.i.d. before meals to start at lunchtime today as ordered. We will continue dual oral hypoglycemic drug therapy with metformin given as 1000 mg b.i.d. and glipizide given as 10 mg b.i.d. before meals as ordered. We will titrate incrementally as indicated to optimize metabolic control. We will follow the patient. Lolis Goss MD
[2017-08-15] MEDS ORDERED: Insulin Lispro (humaLOG) 100 Units/ml Inj SC SCH (11:30)
[2017-08-15] MEDS ORDERED: Insulin Detemir 100 Units/ml Inj SC SCH (22:00)
[2017-08-16 13:54] LABS: C-PEPTIDE 2.65 ng/mL (0.80-3.85)
== END 2017-08-15 10:27 | disposition home or self-care (01) | DRG 566 ==
LOC: H.ER 15:09 → H.ERHOLD 17:55 → H.ICU/CCU 20:17 → H.MEDSURG1 08-13 15:35
PROVIDERS: ADMIT Internal Medicine Pulmonary Disease; ATTEND Internal Medicine Pulmonary Disease
DX: E11.10 Type 2 diabetes mellitus with ketoacidosis without coma (principal); R65.10 Systemic inflammatory response syndrome (SIRS) of non-infectious origin without acute organ dysfunction; E86.0 Dehydration; E78.5 Hyperlipidemia, unspecified; G89.4 Chronic pain syndrome; M54.40 Lumbago with sciatica, unspecified side; I10 Essential (primary) hypertension; Z79.4 Long term (current) use of insulin

== ENCOUNTER 2017-10-03 07:46 | Inpatient (IN) | payer OTHER ==
[2017-10-03 07:46] VITALS: BMI 30.5
[2017-10-03 08:59] LABS: ALBUMIN 4.7 g/dL (3.5-5.0); ALT/SGPT 156 U/L (21-72); AST/SGOT 108 U/L (17-59); BLOOD UREA NITROGEN 16 mg/dl (9-20); CALCIUM 10.1 mg/dL (8.4-10.2); GFR AFRICAN-AMERICAN > 60; GFR NON-AFRICAN AMERICAN > 60; INR 1.1 (0.9-1.2); PROTHROMBIN TIME 12.2 Seconds (9.8-13.1)
[2017-10-03 09:07] LABS: BASO % 0.2 % (0.0-2.0); EOS # 0.1 K/uL (0.0-0.7); EOS % 0.6 % (0.0-4.0); HEMOGLOBIN 15.6 g/dL (12.0-18.0); LYMPH # 3.2 K/uL (1.0-4.3); LYMPH % 27.2 % (20.0-40.0); MEAN CELL VOLUME 91.2 fl (80.0-94.0); MEAN CORPUSCULAR HEMOGLOBIN 31.2 pg (27.0-31.0); MEAN CORPUSCULAR HGB CONC 34.3 g/dL (33.0-37.0); MEAN PLATELET VOLUME 11.9 fl (7.2-11.7); MONO # 0.9 K/uL (0.0-0.8); MONO % 7.4 % (0.0-10.0); NEUT # 7.7 K/uL (1.8-7.0); NEUT % 64.6 % (50.0-75.0); NRBC % 0.2 % (0.0-0.0); RBC 4.98 Mil/uL (4.40-5.90); RED CELL DISTRIBUTION WIDTH 12.5 % (11.5-14.5); WHITE BLOOD COUNT 11.9 K/uL (4.8-10.8)
[2017-10-03] MEDS ORDERED: Morphine 4 MG/ML VIAL ONE (09:24)
[2017-10-03] MEDS ORDERED: Morphine 4 MG/ML VIAL IV ONE (09:30)
[2017-10-03] MEDS ORDERED: Insulin Regular 100 units/ml SC STA (09:45)
[2017-10-03 09:46] LABS: SQUAMOUS EPITHIAL < 1 /hpf (0-5); URINE BILIRUBIN NEGATIVE (NEGATIVE); URINE BLOOD NEGATIVE (NEGATIVE); URINE CLARITY CLEAR (Clear); URINE COLOR YELLOW (YELLOW); URINE GLUCOSE (UA) >=500 mg/dL (Normal); URINE HYALINE CAST 0-2 /hpf (0-2); URINE LEUKOCYTE ESTERASE NEG Leu/uL (Negative); URINE NITRATE NEGATIVE (NEGATIVE); URINE PROTEIN 100 mg/dL (NEGATIVE); URINE UROBILINOGEN 0.2-1.0 mg/dL (0.2-1.0)
--- NOTE | 2017-10-03 09:50 | RAD ---
HISTORY: back pain COMPARISON: Chest radiograph dated 08/12/2017 FINDINGS: LUNGS: No active pulmonary disease. PLEURA: No significant pleural effusion identified, no pneumothorax apparent. CARDIOVASCULAR: Normal. OSSEOUS STRUCTURES: No significant abnormalities. VISUALIZED UPPER ABDOMEN: Normal. OTHER FINDINGS: None. IMPRESSION: No active disease.
--- NOTE | 2017-10-03 09:51 | ED PDOC ---
HPI: Back Time Seen by Provider: 10/03/17 07:59 Chief Complaint (Nursing): Back Pain Chief Complaint (Provider): Back Pain History Per: Patient History/Exam Limitations: no limitations Onset/Duration Of Symptoms: Days (x2) Current Symptoms Are (Timing): Still Present Additional Complaint(s): 37 year old male with a past medical history of chronic back pain, lumbar radiculopathy, and diabetes, who presents to the ED due to worsening back pain since yesterday. Patient denies weakness or numbness. PMD: Dr. Canas Past Medical History Reviewed: Historical Data, Nursing Documentation, Vital Signs Vital Signs: Last Vital Signs Temp 98.7 F 10/03/17 07:54 Pulse 104 H 10/03/17 07:54 Resp 22 10/03/17 07:54 BP 148/100 H 10/03/17 07:54 Pulse Ox 98 10/03/17 07:54 - Medical History PMH: Arthritis, Back Problems (SCIATICA), Diabetes (type II), HTN, Hypercholesterolemia Denies: Anxiety, Bipolar Disorder, Depression, HIV, Personality Disorder, Post Traumatic Stress Disorder, Chronic Kidney Disease, Schizophrenia - Surgical History Other surgeries: Pilonidal cyst - Family History Family History: States: Unknown Family Hx - Social History Current smoker - smoking cessation education provided: No Alcohol: None Drugs: Denies - Immunization History Hx Tetanus Toxoid Vaccination: No Hx Influenza Vaccination: No Hx Pneumococcal Vaccination: No - Home Medications Home Medications: Ambulatory Orders Medication Instructions Recorded GlipiZIDE [Glucotrol] 10 mg PO BIDAC 30 Days #60 tab 08/15/17 MetFORMIN [glucoPHAGE] 1,000 mg PO BID 30 Days #60 tab 08/15/17 Pregabalin [Lyrica] 100 mg PO DAILY cap 08/15/17 Cyclobenzaprine [Flexeril] 10 mg PO TID 10/03/17 Ibuprofen [Motrin Tab] 800 mg PO PRN PRN 10/03/17 oxyCODONE/Acetaminophen [Percocet 5 - 325 mg PO PRN PRN 10/03/17 5/325 mg Tab] - Allergies Allergies/Adverse Reactions: Allergies Allergy/AdvReac Type Severity Reaction Status Date / Time No Known Allergies Allergy Verified 10/03/17 07:54 Review of Systems ROS Statement: Except As Marked, All Systems Reviewed And Found Negative Musculoskeletal: Positive for: Back Pain Neurological: Negative for: Weakness, Numbness Physical Exam - Reviewed Nursing Documentation Reviewed: Yes Vital Signs Reviewed: Yes - Physical Exam Appears: Positive for: Non-toxic, No Acute Distress, Uncomfortable Skin: Positive for: Normal Color, Warm, Dry Cardiovascular/Chest: Positive for: Regular Rate, Rhythm. Negative for: Murmur Respiratory: Positive for: Normal Breath Sounds. Negative for: Respiratory Distress Gastrointestinal/Abdominal: Positive for: Normal Exam, Bowel Sounds, Soft. Negative for: Tenderness Extremity: Positive for: Normal ROM Neurologic/Psych: Positive for: Alert, Oriented (x3) - Laboratory Results Result Diagrams: 10/03/17 08:37 10/03/17 08:37 - ECG O2 Sat by Pulse Oximetry: 98 (RA) Pulse Ox Interpretation: Normal Medical Decision Making Medical Decision Making: Time: 08:24 Initial Impression: acute on Chronic back pain Initial Plan: --Blood type and screen --EKG --CMP --CBC w/ differential --PT --CXR --Insulin 4 units SC --Morphine 4 mg IV --Urine C&S --Urinalysis --Reevaluation Time: 9:[address] Canas who says patient will be evaluated by Dr zayas and have surgery tomorrow with Dr. Zayas. Patient will be admitted. Time: 9:[address] Zayas who confirmed plan. Scribe Attestation: Documented by Rickey Grissom, acting as a scribe for Yumiko Simpson MD. Provider Scribe Attestation: All medical record entries made by the Scribe were at my direction and personally dictated by me. I have reviewed the chart and agree that the record accurately reflects my personal performance of the history, physical exam, medical decision making, and the department course for this patient. I have also personally directed, reviewed, and agree with the discharge instructions and disposition. Disposition - Clinical Impression Clinical Impression: Sciatica, herniated disk - Patient ED Disposition Is Patient to be Admitted: Yes - Disposition Disposition Time: 09:25 Condition: STABLE - Pt Status Changed To: Hospital Disposition Of: Inpatient - Admit Certification Admit to Inpatient:: After my assessment, the patient will require hospitalization for at least two midnights. This is because of the severity of symptoms shown, intensity of services needed, and/or the medical risk in this patient being treated as an outpatient.
[2017-10-03] MEDS ORDERED: Insulin Regular 100 units/ml ONE (09:58)
[2017-10-03] MEDS: Oxycodone/Acetaminophen 5/325 mg Tab PO PRN ×2 (12:31→20:50)
--- NOTE | 2017-10-03 12:34 | CP.PCM.CON ---
History of Present Illness - History of Present Illness History of Present Illness: The patient presented to the ED with complaints of worsening lower back pain for the past [address] Ferreira was consulted for neurosurgical evaluation. The patient has complaints related to lower back pain for the past 5 years which has been progressively worsening over the past 2 years. The pain has worsened over the past 2 days and he rates it a 7-10/10 on the pain scale. The pain is sharp in quality and is located in the right lower back. The pain frequently radiates down the right lower extremity to his toes. The pain is aggravated when lying down supine and with prolonged walking. The pain is alleviated with lying on his side. He has failed conservative management, as well as pain management treatment. The pain has affected his ability to perform his ADL's. It is associated with frequent numbness and tingling down the RLE. He denies lower extremity weakness, bladder or bladder difficulties. Review of Systems - Review of Systems All systems: reviewed and no additional remarkable complaints except Review of Systems: right sided lower back pain with occassional numbness and tingling traveling down RLE Past Patient History - Infectious Disease Hx of Infectious Diseases: None - Past Medical History & Family History Past Medical History?: Yes Pertinent Family History: Father: Diabetes Mother: HTN, Hypercholesterolemia - Past Social History Smoking Status: Never Smoked Alcohol: None Drugs: Denies - CARDIAC Hx Hypercholesterolemia: Yes Hx Hypertension: Yes - PULMONARY Hx Respiratory Disorders: No - NEUROLOGICAL Other/Comment: Sciatica - HEENT Hx HEENT Problems: No - RENAL Hx Chronic Kidney Disease: No - ENDOCRINE/METABOLIC Hx Endocrine Disorders: Yes Hx Diabetes Mellitus Type 2: Yes - HEMATOLOGICAL/ONCOLOGICAL Hx Human Immunodeficiency Virus (HIV): No - INTEGUMENTARY Hx Dermatological Problems: No - MUSCULOSKELETAL/RHEUMATOLOGICAL Hx Arthritis: Yes Hx Falls: No - GASTROINTESTINAL Hx Gastrointestinal Disorders: No - GENITOURINARY/GYNECOLOGICAL Hx Genitourinary Disorders: No - PSYCHIATRIC Hx Anxiety: No Hx Bipolar Disorder: No Hx Depression: No Hx Post Traumatic Stress Disorder: No Hx Schizophrenia: No Hx Substance Use: No - SURGICAL HISTORY Hx Surgeries: Yes Other/Comment: Pilonidal cyst removal - ANESTHESIA Hx Anesthesia: Yes Hx Anesthesia Reactions: No Hx Malignant Hyperthermia: No Meds Allergies/Adverse Reactions: Allergies Allergy/AdvReac Type Severity Reaction Status Date / Time No Known Allergies Allergy Verified 10/03/17 07:54 - Medications Medications: Current Medications Cyclobenzaprine HCl (Flexeril) 10 mg PO TID [facility] Glipizide (Glucotrol) 10 mg PO BIDAC [facility] Insulin Human Regular (Humulin R) 0 units SC ACHS [place] PRN Reason: Protocol Metformin HCl (Glucophage) 1,000 mg PO BID [facility] Oxycodone/Acetaminophen (Percocet 5/325 Mg Tab) 1 tab PO Q6 PRN PRN Reason: Pain, moderate (4-7) Stop: 10/06/17 12:02 Last Admin: 10/03/17 12:31 Dose: 1 tab Pregabalin (Lyrica) 100 mg PO DAILY [facility] Physical Exam - Constitutional Appears: No Acute Distress - Head Exam Head Exam: ATRAUMATIC, NORMAL INSPECTION, NORMOCEPHALIC - Eye Exam Eye Exam: EOMI, Normal appearance, PERRL - ENT Exam ENT Exam: Mucous Membranes Moist - Neck Exam Neck exam: Positive for: Normal Inspection - Respiratory Exam Respiratory Exam: NORMAL BREATHING PATTERN - GI/Abdominal Exam GI & Abdominal Exam: Soft. absent: Tenderness - Back Exam Back exam: paraspinal tenderness. absent: vertebral tenderness - Expanded Back Exam Expanded Back exam: Positive Straight Leg Raising: Left, Right (right greater than left) - Neurological Exam Neurological exam: Alert, Oriented x3 - Expanded Neurological Exam Expanded Patient oriented to: person, place, time Cranial nerves: EOM's Intact: Normal Upper motor neuron: Babinski Sign: Normal Neuro motor strength exam: Left Lower Extremity: 5, Right Lower Extremity: 4 DTR: Achilles Tendon Left: 2+, Achilles Tendon Right: 2+, Patellar Left: 2+, Patellar Right: 2+ - Psychiatric Exam Psychiatric exam: Normal Affect, Normal Mood - Skin Skin Exam: Normal Color Results - Vital Signs Recent Vital Signs: Last Vital Signs Temp 97.6 F 10/03/17 10:28 Pulse 87 10/03/17 10:54 Resp 20 10/03/17 10:54 BP 140/92 H 10/03/17 10:28 Pulse Ox 98 10/03/17 10:28 - Labs Result Diagrams: 10/03/17 08:37 10/03/17 08:37 Labs: Laboratory Results - last 24 hr 10/03/17 10/03/17 10/03/17 08:37 08:37 08:37 WBC 11.9 H RBC 4.98 Hgb 15.6 D Hct 45.4 MCV 91.2 D MCH 31.2 H MCHC 34.3 RDW 12.5 Plt Count 172 MPV 11.9 H Neut % (Auto) 64.6 Lymph % (Auto) 27.2 [place] % (Auto) 7.4 Eos % (Auto) 0.6 Baso % (Auto) 0.2 Neut # (Auto) 7.7 H Lymph # (Auto) 3.2 [place] # (Auto) 0.9 H Eos # (Auto) 0.1 Baso # (Auto) 0.0 PT 12.2 INR 1.1 Sodium 140 Potassium 4.3 Chloride 101 Carbon Dioxide 20 L Anion Gap 23 H BUN 16 Creatinine 0.5 L Est GFR ( Amer) > 60 Est GFR (Non-Af Amer) > 60 POC Glucose (mg/dL) Random Glucose 330 H Calcium 10.1 Total Bilirubin 0.8 AST 108 H D ALT 156 H D Alkaline Phosphatase 109 Total Protein 9.5 H Albumin 4.7 Globulin 4.8 H Albumin/Globulin Ratio 1.0 Urine Color Urine Clarity Urine pH Ur Specific [place] Urine Protein Urine Glucose (UA) Urine Ketones Urine Blood Urine Nitrate Urine Bilirubin Urine Urobilinogen Ur Leukocyte Esterase Urine RBC (Auto) Urine Microscopic WBC Ur Squamous Epith Cells Hyaline Casts Blood Type Antibody Screen BBK History Checked 10/03/17 10/03/17 10/03/17 08:37 09:25 10:58 WBC RBC Hgb Hct MCV MCH MCHC RDW Plt Count MPV Neut % (Auto) Lymph % (Auto) [place] % (Auto) Eos % (Auto) Baso % (Auto) Neut # (Auto) Lymph # (Auto) [place] # (Auto) Eos # (Auto) Baso # (Auto) PT INR Sodium Potassium Chloride Carbon Dioxide Anion Gap BUN Creatinine Est GFR ( Amer) Est GFR (Non-Af Amer) POC Glucose (mg/dL) 227 H Random Glucose Calcium Total Bilirubin AST ALT Alkaline Phosphatase Total Protein Albumin Globulin Albumin/Globulin Ratio Urine Color Yellow Urine Clarity Clear Urine pH 6.0 Ur Specific [place] 1.038 H Urine Protein 100 Urine Glucose (UA) >=500 Urine Ketones 20 Urine Blood Negative Urine Nitrate Negative Urine Bilirubin Negative Urine Urobilinogen 0.2-1.0 Ur Leukocyte Esterase Neg Urine RBC (Auto) 3 Urine Microscopic WBC 1 Ur Squamous Epith Cells < 1 Hyaline Casts 0-2 Blood Type A POSITIVE Antibody Screen Negative BBK History Checked No verified bt Assessment & Plan (1) Lumbar back pain with radiculopathy affecting right lower extremity Assessment and Plan: -Patient was proposed Norbert-lumbar laminectomy and L5-S1 microdiscectomy. Risks and benefits of the procedure were explained to the patient and the patient agrees to proceed. -NPO pMN -OR tomorrow AM -medical clearance -Patient's case and plan was discussed in agreement with Dr. Syed Status: Acute
[2017-10-03] MEDS: Insulin Regular 100 units/ml SC SCH ×2 (17:07→22:11)
[2017-10-03] MEDS: Morphine 4 MG/ML VIAL IVP PRN (17:34)
[2017-10-04] MEDS ORDERED: Dextrose 5%/0.45% NS 1,000 ML IV SCH (00:01)
[2017-10-04] MEDS: Morphine 4 MG/ML VIAL IVP PRN ×3 (00:10→20:52)
--- NOTE | 2017-10-04 03:06 | HP ---
ADMISSION HISTORY AND PHYSICAL HISTORY OF PRESENT ILLNESS: Mr. Rosales is a 37-year-old male who was admitted via the Emergency Room after he presented with severe low back pain for the past 2 days prior to presentation, worse on the day of admission. He was worked up in the Emergency Room and admitted for evaluation and therapy of intractable back pain due to lumbar radiculopathy. Dr. Syed was consulted and the patient is scheduled for lumbar laminectomy in the morning. He has a history of severe degenerative disk disease with disk herniation with chronic intractable pain which has worsened. He also has diabetes, peripheral neuropathy and radiculopathy. FAMILY HISTORY: Unremarkable. SOCIAL HISTORY: He does not smoke or drink and lives at home with . REVIEW OF SYSTEMS: Remarkable for back pains which have worsened recently. PHYSICAL EXAMINATION: GENERAL: The patient is alert, oriented, and appears to be in moderate pain because of disk disease. VITAL SIGNS: Blood pressure of 122/80, down from 148/100; pulse of 104, down to 92; and respiratory rate is 18. He is afebrile and O2 saturation is 97% on room air. SKIN: Shows fair turgor. HEAD AND NECK: Pupils are equal and reactive to light and accommodation. JVP is flat. Mouth shows fair hygiene. LUNGS: Clear. HEART: Regular. No murmurs or gallop. GASTROINTESTINAL: Abdomen is soft and nontender. No organomegaly. MUSCULOSKELETAL: There is severe lumbosacral tenderness with difficulty moving legs. CENTRAL NERVOUS SYSTEM: Exam is remarkable for unsteadiness of gait. LABORATORY DATA: WBC of 11.9, hemoglobin of 15.6, and platelet count of 172,000. Sodium of 140, potassium of 4.3, BUN of 16, and creatinine of 0.5. Serum glucose of 227. AST of 108 and ALT of 156. IMAGING DATA: Chest x-ray; no active cardiopulmonary pathology noted. EKG is remarkable for normal sinus rhythm, possible left atrial enlargement. IMPRESSION: Intractable back pain due to lumbar radiculopathy, peripheral neuropathy, and diabetes mellitus, poorly controlled. PLAN: The plan is neurosurgical evaluation already completed and the patient is scheduled for lumbar radiculopathy in the a.m. for pain relief. The patient is medically cleared for surgery. Mo Canas MD [facility] # [id number]
[2017-10-04] MEDS ORDERED: Lidocaine 1% Inj (20ml) ONE (07:41)
[2017-10-04] MEDS ORDERED: Bupivacaine 0.5% Inj(30mL) ONE (07:41)
[2017-10-04] MEDS ORDERED: Absorbable Gelatin Sponge Size 100 ONE (07:42)
[2017-10-04] MEDS ORDERED: Thrombin Topical 5,000 Int Units Spray Kit ONE (07:42)
[2017-10-04] MEDS ORDERED: Phenylephrine 10 mg/ml Inj ONE (07:54)
[2017-10-04] MEDS: Insulin Regular 100 units/ml SC SCH ×4 (08:17→21:19)
[2017-10-04] MEDS ORDERED: Succinylcholine 200 mg/10 ml Inj IV ONE (09:08)
[2017-10-04] MEDS ORDERED: Propofol 10 mg/ml Inj (20 ML) ONE ×2 (09:08→10:44)
[2017-10-04] MEDS ORDERED: Naloxone 0.4 mg/ml Inj (Adult) ONE (09:08)
[2017-10-04] MEDS ORDERED: Lactated Ringer's 1,000 ML IV ONE (09:40)
[2017-10-04] MEDS ORDERED: Rocuronium 10 mg/ml (5 ml) ONE (09:58)
[2017-10-04] MEDS ORDERED: Desflurane Inhalation Anesthetic Liq (240 ml) ONE (10:00)
[2017-10-04] MEDS ORDERED: Esmolol 100 mg/10ml Inj IV ONE (10:02)
[2017-10-04] MEDS ORDERED: Neostigmine 1:1000 (1 mg/ml) Inj ONE (10:25)
[2017-10-04] MEDS ORDERED: HEMOSTATIC MATRIX 10 ML DIS.NEEDLE TOP ONE (10:30)
[2017-10-04] MEDS: HYDROmorphone 0.5 mg/0.5 ml ISec IVP PRN ×3 (11:30→13:00)
[2017-10-04] MEDS: Sodium Chloride 0.9% 1,000 ML IV SCH (13:15)
--- NOTE | 2017-10-04 14:36 | RAD ---
PROCEDURE: HISTORY: As above COMPARISON: None TECHNIQUE: Total fluoroscopic time utilized during the procedure: 1.8 seconds ; 0.55 mGy cm 2 FINDINGS: Submitted images from the current procedure: 1 Please refer to the physician's notes performing the procedure. IMPRESSION: Less than 1 hour fluoroscopic time utilized during performance of the procedure
[2017-10-04] MEDS: ceFAZolin 2 GM in Sodium Chloride 0.9% 100 ML IVPB SCH (16:41)
[2017-10-04] MEDS: Oxycodone/Acetaminophen 5/325 mg Tab PO PRN (16:54)
--- NOTE | 2017-10-04 22:46 | OP ---
PROCEDURE DATE: 10/04/2017 PREOPERATIVE DIAGNOSIS: Lumbar herniated disk at L5-S1 on the right side. POSTOPERATIVE DIAGNOSIS: Lumbar herniated disk at L5-S1 on the right side. PROCEDURE: Right L5-S1 hemilaminotomy, medial facetectomy, removal of extruded fragment, fluoroscopy has been used for the procedure. SURGEON: Evan Syed MD IT APPLICATION SUPPORT ANALYST: Dr. Kimball. Dr. Kimball has helped me to perform the surgery, he is a physician inventory assistant who stayed throughout the case from beginning to the end. DESCRIPTION OF PROCEDURE: The patient was brought to the operating room, anesthetized with general endotracheal anesthesia, placed in a prone position on the Garrett table. Care was taken to protect all the pressure points. Back of the lumbar area thoroughly prepped and draped in same sterile manner after marking of the skin incision for lumbar laminectomy. After prepping and draping the area, the skin has been incised. Bleeding skins had been controlled with bipolar precision inspector. By using a Bovie precision inspector, paraspinal muscles have been detached, attachments of spinous process and lamina of right side L5-S1. A Sravani retractor has been applied to alter the facet joint of L5-S1 and fluoroscopy has been used in order to confirm this level. At this point, under magnification of the lamina of L5-S1 and medial part of the facets of the L5-S1 have been drilled. Drilling was continued until the top and bottom of the ligamentum flavum was seen. Drilling has been continued on the medial part of the facets until the turn of the ligamentum had been seen. Once this had been done, thinned out some lamina and medial part of the facets and ligamentum flavum has been removed. Note that neural tube had been retracted medially. There was a large extruded disk fragment noted. The annulus has been incised. The disk fragment has been removed. After that the nerve root was found to be very nice. After that hemostasis was best achieved. Fascia across the interspinous ligaments and spinous process with 1-Vicryl, subcutaneous tissue with 3-Vicryl. Skin has been closed with intradermal 3 Vicryl stitches. The patient tolerated the procedure, and after procedure, mobilized to the recovery room in stabilized condition. Evan Syed MD [facility] # [id number]
[2017-10-05] MEDS: Oxycodone/Acetaminophen 5/325 mg Tab PO PRN ×3 (00:42→19:46)
[2017-10-05] MEDS: Sodium Chloride 0.9% 1,000 ML IV SCH ×2 (00:44→08:43)
[2017-10-05] MEDS: ceFAZolin 2 GM in Sodium Chloride 0.9% 100 ML IVPB SCH (00:45)
[2017-10-05] MEDS: Morphine 4 MG/ML VIAL IVP PRN ×4 (04:26→22:43)
--- NOTE | 2017-10-05 08:39 | CP.PCM.PN ---
Subjective - Date & Time of Evaluation Date of Evaluation: 10/05/17 Time of Evaluation: 08:40 - Subjective Subjective: STILL IN PAIN S/P LUMBAR LAMINECTOMY Objective - Vital Signs/Intake and Output Vital Signs (last 24 hours): Temp Pulse Resp BP Pulse Ox 98.9 F 109 H 20 122/74 95 10/05/17 07:58 10/05/17 07:58 10/05/17 07:58 10/05/17 07:58 10/05/17 07:58 Intake and Output: 10/05/17 10/05/17 06:59 18:59 Intake Total 600 Output Total 400 850 Balance -400 -250 - Medications Medications: Current Medications Cyclobenzaprine HCl (Flexeril) 10 mg PO TID [facility] Last Admin: 10/04/17 16:42 Dose: 10 mg Docusate Sodium (Colace) 100 mg PO BID [facility] Last Admin: 10/04/17 18:28 Dose: 100 mg Glipizide (Glucotrol) 10 mg PO BIDAC [facility] Last Admin: 10/04/17 16:42 Dose: 10 mg Sodium Chloride (Sodium Chloride 0.9%) 1,000 mls @ 100 mls/hr IV .Q10H [facility] Stop: 10/05/17 11:29 Last Admin: 10/05/17 00:44 Dose: 100 mls/hr Insulin Human Regular (Humulin R) 0 units SC ACHS [facility] PRN Reason: Protocol Last Admin: 10/04/17 21:19 Dose: Not Given Metformin HCl (Glucophage) 1,000 mg PO BID [facility] Last Admin: 10/04/17 16:42 Dose: 1,000 mg Morphine Sulfate (Morphine) 2 mg IVP Q6 PRN PRN Reason: Pain, severe (8-10) Last Admin: 10/05/17 04:26 Dose: 2 mg Oxycodone/Acetaminophen (Percocet 5/325 Mg Tab) 1 tab PO Q6 PRN PRN Reason: Pain, moderate (4-7) Stop: 10/06/17 12:02 Last Admin: 10/05/17 07:17 Dose: 1 tab Pregabalin (Lyrica) 100 mg PO DAILY [facility] Last Admin: 10/04/17 18:28 Dose: 100 mg - Labs Labs: 10/03/17 08:37 02/27/18 08:37 PT 12.2 Seconds (9.8-13.1) 10/03/17 08:37 INR 1.1 (0.9-1.2) 10/03/17 08:37 - Constitutional Appears: Chronically Ill - Head Exam Head Exam: ATRAUMATIC, NORMAL INSPECTION, NORMOCEPHALIC - Eye Exam Eye Exam: EOMI, Normal appearance, PERRL Pupil Exam: NORMAL ACCOMODATION, PERRL - ENT Exam ENT Exam: Mucous Membranes Moist, Normal Exam - Neck Exam Neck Exam: Full ROM, Normal Inspection. absent: Lymphadenopathy - Respiratory Exam Respiratory Exam: Clear to Ausculation Bilateral, NORMAL BREATHING PATTERN - Cardiovascular Exam Cardiovascular Exam: REGULAR RHYTHM, +S1, +S2. absent: Murmur - GI/Abdominal Exam GI & Abdominal Exam: Soft, Normal Bowel Sounds. absent: Tenderness - Rectal Exam Rectal Exam: NORMAL INSPECTION - Extremities Exam Extremities Exam: Full ROM, Normal Capillary Refill, Normal Inspection. absent : Joint Swelling, Pedal Edema - Back Exam Back Exam: NORMAL INSPECTION - Neurological Exam Neurological Exam: Alert, Awake, CN II-XII Intact, Normal Gait, Oriented x3 - Psychiatric Exam Psychiatric exam: Normal Affect, Normal Mood - Skin Skin Exam: Dry, Intact, Normal Color, Warm Assessment and Plan - Assessment and Plan (Free Text) Assessment: S/P LAMINECTOMY FOR DISC DZ AND INTRACTABLE PAIN DM NEUROPATHY Plan: AWAIT NEUROSURGICAL DECISION RE-DISCHARGE PLANNING PT EVAL
[2017-10-05] MEDS: Insulin Regular 100 units/ml SC SCH ×4 (08:42→22:33)
[2017-10-05 10:20] LABS: HEMOGLOBIN 14.6 g/dL (12.0-18.0); MEAN CELL VOLUME 90.9 fl (80.0-94.0); MEAN CORPUSCULAR HEMOGLOBIN 30.6 pg (27.0-31.0); MEAN CORPUSCULAR HGB CONC 33.7 g/dL (33.0-37.0); RBC 4.76 Mil/uL (4.40-5.90); RED CELL DISTRIBUTION WIDTH 12.5 % (11.5-14.5); WHITE BLOOD COUNT 13.5 K/uL (4.8-10.8)
[2017-10-05 10:25] LABS: BLOOD UREA NITROGEN 13 mg/dl (9-20); CALCIUM 9.6 mg/dL (8.4-10.2); GFR AFRICAN-AMERICAN > 60; GFR NON-AFRICAN AMERICAN > 60
--- NOTE | 2017-10-05 15:38 | CP.PCM.PN ---
Subjective - Date & Time of Evaluation Date of Evaluation: 10/05/17 Time of Evaluation: 08:00 - Subjective Subjective: Patient was seen and examined OOB standing comfortable. His pain is controlled. Laure diet. Worked well with PT, awaiting stairs training. No acute events overnight. Objective - Vital Signs/Intake and Output Vital Signs (last 24 hours): Temp Pulse Resp BP Pulse Ox 98.9 F 119 H 20 122/74 98 10/05/17 07:58 10/05/17 10:30 10/05/17 07:58 10/05/17 07:58 10/05/17 10:30 Intake and Output: 10/05/17 10/05/17 06:59 18:59 Intake Total 600 Output Total 400 850 Balance -400 -250 - Medications Medications: Current Medications Cyclobenzaprine HCl (Flexeril) 10 mg PO TID [facility] Last Admin: 10/05/17 12:47 Dose: 10 mg Docusate Sodium (Colace) 100 mg PO BID [facility] Last Admin: 10/05/17 08:41 Dose: 100 mg [facility] Last Admin: 10/05/17 08:43 Dose: 10 mg Insulin Human Regular (Humulin R) 0 units SC ACHS [facility] PRN Reason: Protocol Last Admin: 10/05/17 12:47 Dose: 2 units Metformin HCl (Glucophage) 1,000 mg PO BID [facility] Last Admin: 10/05/17 08:42 Dose: 1,000 mg Morphine Sulfate (Morphine) 2 mg IVP Q6 PRN PRN Reason: Pain, severe (8-10) Last Admin: 10/05/17 10:43 Dose: 2 mg Oxycodone/Acetaminophen (Percocet 5/325 Mg Tab) 1 tab PO Q6 PRN PRN Reason: Pain, moderate (4-7) Stop: 10/06/17 12:02 Last Admin: 10/05/17 07:17 Dose: 1 tab Pregabalin (Lyrica) 100 mg PO DAILY [facility] Last Admin: 10/05/17 08:41 Dose: 100 mg - Labs Labs: 10/05/17 09:55 10/05/17 09:55 PT 12.2 Seconds (9.8-13.1) 10/03/17 08:37 INR 1.1 (0.9-1.2) 10/03/17 08:37 - Back Exam Additional comments: Dressings clean dry and intact. Mild tenderness to palpation about wound. - Neurological Exam Neurological Exam: Alert, Awake, Oriented x3 Neuro motor strength exam: Left Lower Extremity: 5, Right Lower Extremity: 5 Assessment and Plan (1) Lumbar back pain with radiculopathy affecting right lower extremity Assessment & Plan: Patient is POD#1 from R L5-S1 hemilaminectomy and microdiscectomy doing well -pain control -PT/OT stairs training -keep dressings until f/u visit -cleared for d/c from neurosurg s/p -case and plan discussed in agreement with Dr. Syed Status: Acute
[2017-10-06] MEDS: Oxycodone/Acetaminophen 5/325 mg Tab PO PRN ×2 (03:54→10:11)
[2017-10-06 08:07] VITALS: BP 100/64; PULSE 104; RESP 20; TEMP 97.9; O2SAT 93
[2017-10-06] MEDS: Insulin Regular 100 units/ml SC SCH (08:43)
--- NOTE | 2017-10-06 18:26 | CARD ---
APPROVED REPORT EKG Measurement Heart [id number] <Conclusion> Normal sinus rhythm Possible Left atrial enlargement Borderline ECG
--- NOTE | 2017-10-07 12:38 | CP.PCM.DIS ---
Provider - Provider Date of Admission: 10/03/17 09:51 Attending physician: Mo Palacios MD Time Spent in preparation of Discharge (in minutes): 30 Diagnosis - Discharge Diagnosis (1) Lumbar radiculopathy Status: Acute (2) Disc disorder Status: Acute (3) Diabetes 1.5, managed as type 2 Status: Acute (4) S/P laminectomy Status: Acute (5) Back pain Status: Acute (6) Hyperglycemia Status: Acute (7) Liver function abnormality Status: Acute (8) Mixed hyperlipidemia Status: Acute (9) Sciatica Status: Acute (10) Sciatica neuralgia Status: Acute Hospital Course - Lab Results Lab Results: Micro Results 10/03/17 09:25 Urine,Clean Catch Urine Culture - Final No Growth (<1,000 CFU/ML) Most Recent Lab Values WBC 13.5 K/uL (4.8-10.8) H 10/05/17 09:55 RBC 4.76 Mil/uL (4.40-5.90) 10/05/17 09:55 Hgb 14.6 g/dL (12.0-18.0) 10/05/17 09:55 Hct 43.2 % (35.0-51.0) 10/05/17 09:55 MCV 90.9 fl (80.0-94.0) 10/05/17 09:55 MCH 30.6 pg (27.0-31.0) 10/05/17 09:55 MCHC 33.7 g/dL (33.0-37.0) 10/05/17 09:55 RDW 12.5 % (11.5-14.5) 10/05/17 09:55 Plt Count 179 K/uL (130-400) 10/05/17 09:55 MPV 11.9 fl (7.2-11.7) H 10/03/17 08:37 Neut % (Auto) 64.6 % (50.0-75.0) 10/03/17 08:37 Lymph % (Auto) 27.2 % (20.0-40.0) 10/03/17 08:37 [place] % (Auto) 7.4 % (0.0-10.0) 10/03/17 08:37 Eos % (Auto) 0.6 % (0.0-4.0) 10/03/17 08:37 Baso % (Auto) 0.2 % (0.0-2.0) 10/03/17 08:37 Neut # (Auto) 7.7 K/uL (1.8-7.0) H 10/03/17 08:37 Lymph # (Auto) 3.2 K/uL (1.0-4.3) 10/03/17 08:37 [place] # (Auto) 0.9 K/uL (0.0-0.8) H 10/03/17 08:37 Eos # (Auto) 0.1 K/uL (0.0-0.7) 10/03/17 08:37 Baso # (Auto) 0.0 K/uL (0.0-0.2) 10/03/17 08:37 PT 12.2 Seconds (9.8-13.1) 10/03/17 08:37 INR 1.1 (0.9-1.2) 10/03/17 08:37 Sodium 140 mmol/l (132-148) 10/05/17 09:55 Potassium 4.1 MMOL/L (3.6-5.0) 10/05/17 09:55 Chloride 101 mmol/L (98-107) 10/05/17 09:55 Carbon Dioxide 24 mmol/L (22-30) 10/05/17 09:55 Anion Gap 19 (10-20) 10/05/17 09:55 BUN 13 mg/dl (9-20) 10/05/17 09:55 Creatinine 0.6 mg/dl (0.8-1.5) L 10/05/17 09:55 Est GFR ( Amer) > 60 10/05/17 09:55 Est GFR (Non-Af Amer) > 60 10/05/17 09:55 POC Glucose (mg/dL) 270 mg/dL (65-110) H 10/06/17 10:44 Random Glucose 296 mg/dL (75-110) H 10/05/17 09:55 Calcium 9.6 mg/dL (8.4-10.2) 10/05/17 09:55 Total Bilirubin 0.8 mg/dl (0.2-1.3) 10/03/17 08:37 AST 108 U/L (17-59) H D 10/03/17 08:37 ALT 156 U/L (21-72) H D 10/03/17 08:37 Alkaline Phosphatase 109 U/L (38-126) 10/03/17 08:37 Total Protein 9.5 G/DL (6.3-8.2) H 10/03/17 08:37 Albumin 4.7 g/dL (3.5-5.0) 10/03/17 08:37 Globulin 4.8 gm/dL (2.2-3.9) H 10/03/17 08:37 Albumin/Globulin Ratio 1.0 (1.0-2.1) 10/03/17 08:37 Urine Color Yellow (YELLOW) 10/03/17 09:25 Urine Clarity Clear (Clear) 10/03/17 09:25 Urine pH 6.0 (5.0-8.0) 10/03/17 09:25 Ur Specific [place] 1.038 (1.003-1.030) H 10/03/17 09:25 Urine Protein 100 mg/dL (NEGATIVE) 10/03/17 09:25 Urine Glucose (UA) >=500 mg/dL (Normal) 10/03/17 09:25 Urine Ketones 20 mg/dL (NEGATIVE) 10/03/17 09:25 Urine Blood Negative (NEGATIVE) 10/03/17 09:25 Urine Nitrate Negative (NEGATIVE) 10/03/17 09:25 Urine Bilirubin Negative (NEGATIVE) 10/03/17 09:25 Urine Urobilinogen 0.2-1.0 mg/dL (0.2-1.0) 10/03/17 09:25 Ur Leukocyte Esterase Neg Isidra/uL (Negative) 10/03/17 09:25 Urine RBC (Auto) 3 /hpf (0-3) 10/03/17 09:25 Urine Microscopic WBC 1 /hpf (0-5) 10/03/17 09:25 Ur Squamous Epith Cells < 1 /hpf (0-5) 10/03/17 09:25 Hyaline Casts 0-2 /hpf (0-2) 10/03/17 09:25 Blood Type A POSITIVE 10/03/17 08:37 Blood Type Confirm A POSITIVE 10/03/17 12:15 Antibody Screen Negative 10/03/17 08:37 BBK History Checked No verified bt 10/03/17 08:37 - Hospital Course Hospital Course: BACK PAIN AND GAIT IMPROVING Discharge Exam - Head Exam Head Exam: ATRAUMATIC, NORMAL INSPECTION, NORMOCEPHALIC Discharge Plan - Follow Up Plan Condition: STABLE Disposition: HOME/ ROUTINE Patient education suggested?: Yes Instructions: Laminectomy (DC), Postspine Surgery Precautions Additional Instructions: follow up with dr zayas and dr palacios in 1 week Referrals: Evan Zayas MD [Staff Provider] - Mo Palacios MD [Family Provider] -
== END 2017-10-06 11:50 | disposition home or self-care (01) | DRG 757 ==
LOC: H.ER 07:46 → H.ERHOLD 09:51 → H.MEDSURG1 10:39
PROVIDERS: ADMIT Internal Medicine Pulmonary Disease; ATTEND Internal Medicine Pulmonary Disease
PROC: 0SB40ZZ Excision of Lumbosacral Disc, Open Approach (ICD-10-PCS; principal; 2017-10-04 09:15)
DX: M51.17 Intervertebral disc disorders with radiculopathy, lumbosacral region (principal); E11.42 Type 2 diabetes mellitus with diabetic polyneuropathy; E11.65 Type 2 diabetes mellitus with hyperglycemia; E78.00 Pure hypercholesterolemia, unspecified; G89.29 Other chronic pain; I10 Essential (primary) hypertension; M19.90 Unspecified osteoarthritis, unspecified site; E78.2 Mixed hyperlipidemia; R79.89 Other specified abnormal findings of blood chemistry

== ENCOUNTER 2017-10-29 02:36 | Emergency (ER) | payer OTHER ==
[2017-10-29 02:37] VITALS: BMI 30.5
[2017-10-29 02:48] VITALS: TEMP 99.2
[2017-10-29] MEDS ORDERED: Sodium Chloride 0.9% 1,000 ML IV STA (03:12)
--- NOTE | 2017-10-29 03:26 | ED PDOC ---
HPI: Abdomen Time Seen by Provider: 10/29/17 02:58 Chief Complaint (Nursing): Abdominal Pain Chief Complaint (Provider): Abdominal Pain History Per: Patient History/Exam Limitations: no limitations Onset/Duration Of Symptoms: Days (x4) Current Symptoms Are (Timing): Still Present Location Of Pain/Discomfort: Diffuse Associated Symptoms: Nausea, Vomiting, Diarrhea. denies: Fever, Chills, Chest Pain Additional Complaint(s): Stuart Rosales is a 37 year old male with a past medical history of chronic back pain, hypertension, and diabetes, who is presenting to the ER with complaints of abdominal pain with associated nausea, vomiting, and diarrhea, onset 4 days ago. Patient reports 6 episodes of diarrhea, and more than 10 episodes of vomiting. He states that he is unable to tolerate PO fluids and notes a spinal surgery, one month ago. He denies any chest pain fevers, chills, or shortness of breath. Patient offers no other medical complaints at this time. PMD: Mo Canas I Past Medical History Reviewed: Historical Data, Nursing Documentation, Vital Signs Vital Signs: Last Vital Signs Temp 99.2 F 10/29/17 02:46 Pulse 107 H 10/29/17 06:02 Resp 18 10/29/17 06:02 BP 137/91 H 10/29/17 02:46 Pulse Ox 98 10/29/17 06:02 - Medical History PMH: Arthritis, Back Problems (SCIATICA), Diabetes (type II), HTN, Hypercholesterolemia Denies: Anxiety, Bipolar Disorder, Depression, HIV, Personality Disorder, Post Traumatic Stress Disorder, Chronic Kidney Disease, Schizophrenia - Surgical History Surgical History: Back Surgery - Family History Family History: States: Unknown Family Hx - Social History Current smoker - smoking cessation education provided: No Alcohol: None Drugs: Denies - Immunization History Hx Tetanus Toxoid Vaccination: No Hx Influenza Vaccination: No Hx Pneumococcal Vaccination: No - Home Medications Home Medications: Ambulatory Orders Medication Instructions Recorded GlipiZIDE [Glucotrol] 10 mg PO BIDAC 30 Days #60 tab 08/15/17 MetFORMIN [glucoPHAGE] 1,000 mg PO BID 30 Days #60 tab 08/15/17 Pregabalin [Lyrica] 100 mg PO DAILY cap 08/15/17 Cyclobenzaprine [Flexeril] 10 mg PO TID 10/03/17 oxyCODONE/Acetaminophen [Percocet 5 - 325 mg PO PRN PRN 10/03/17 5/325 mg Tab] Dicyclomine [Bentyl] 20 mg PO Q12 PRN #20 tab 10/29/17 Ondansetron ODT [Zofran ODT] 4 mg PO Q6 PRN #16 odt 10/29/17 - Allergies Allergies/Adverse Reactions: Allergies Allergy/AdvReac Type Severity Reaction Status Date / Time No Known Allergies Allergy Verified 10/29/17 02:48 Review of Systems ROS Statement: Except As Marked, All Systems Reviewed And Found Negative Constitutional: Negative for: Fever, Chills Cardiovascular: Negative for: Chest Pain Respiratory: Negative for: Shortness of Breath Gastrointestinal: Positive for: Nausea, Vomiting, Abdominal Pain (diffuse), Diarrhea Physical Exam - Reviewed Nursing Documentation Reviewed: Yes Vital Signs Reviewed: Yes - Physical Exam Appears: Positive for: Non-toxic, No Acute Distress Head Exam: Positive for: ATRAUMATIC, NORMAL INSPECTION, NORMOCEPHALIC Skin: Positive for: Normal Color, Warm, Dry Eye Exam: Positive for: EOMI, Normal appearance, PERRL Neck: Positive for: Normal, Painless ROM, Supple Cardiovascular/Chest: Positive for: Regular Rate, Rhythm. Negative for: Murmur Respiratory: Positive for: Normal Breath Sounds. Negative for: Respiratory Distress Gastrointestinal/Abdominal: Positive for: Soft, Tenderness (mild epigastric tenderness) Back: Positive for: Normal Inspection. Negative for: L CVA Tenderness, R CVA Tenderness, Vertebral Tenderness Extremity: Positive for: Normal ROM. Negative for: Deformity, Swelling Neurologic/Psych: Positive for: Alert, Oriented. Negative for: Motor/Sensory Deficits - Laboratory Results Result Diagrams: 10/29/17 03:29 10/29/17 03:29 - ECG O2 Sat by Pulse Oximetry: 99 (RA) Pulse Ox Interpretation: Normal Medical Decision Making Medical Decision Making: Time: 3:12 Impression: 37 year old male with abdominal pain and associated nausea, vomiting , and diarrhea Initial Plan: --CMP --Lipase --ED Urine dipstick --CBC --Bentyl 20 mg PO --IV Fluids --Zofran 4 mg PO --Accucheck --Urinalysis --ABG 3:50 Labs results were reviewed: significant for elevated white blood cell count. CT Abd/Pelvis was ordered. CT Abd/Pelvis: FINDINGS: The liver is decreased in attenuation consistent with fatty infiltration. The spleen is at the upper limits of normal. The pancreas and kidneys are normal. No gallstones. There are a few loops of proximal small bowel in the left upper quadrant that are distended with fluid with prominent wall and fold enhancement that could be indicative of focal enteritis however there is no stranding in the adjacent fat thus I would favor chronic etiology. If recent prior study a stent, I would be happy to correlate it. Colonic diverticulosis is present. The combination of underdistention and patient motion produces slight wall thickening and indistinctness at the junction of the descending and sigmoid colon however I do not believe there is active diverticulitis. A normal appendix is identified axial images 122 - 140. There is stranding in the subcutaneous fat posterior to the lumbar spine likely a chronic finding. Other possibilities would be traumatic or infectious etiology. Clinical relation recommended. If recent prior study is provided, I would be happy to correlate it.. IMPRESSION: Colonic diverticulosis. Small bowel loops left upper quadrant distended with fluid as discussed above. 6:20 Significant improvement seen in symptoms. Patient still complains of back pain, however patient has chronic back pain and this was explained to him. Upon provider evaluation, patient is stable for discharge and is encouraged to return if symptoms persist or worsen. Advised to follow up with Dr. Syed. Scribe Attestation: Documented by Abigail Good, acting as a scribe for Yordy Barth MD. Provider Scribe Attestation: All medical record entries made by the Scribe were at my direction and personally dictated by me. I have reviewed the chart and agree that the record accurately reflects my personal performance of the history, physical exam, medical decision making, and the department course for this patient. I have also personally directed, reviewed, and agree with the discharge instructions and disposition. Disposition - Clinical Impression Clinical Impression: Gastroenteritis - Patient ED Disposition Is Patient to be Admitted: No - Disposition Disposition: Routine/Home Disposition Time: 06:22 Condition: STABLE Prescriptions: Dicyclomine [Bentyl] 20 mg PO Q12 PRN #20 tab PRN Reason: abdominal pain/diarrhea Ondansetron ODT [Zofran ODT] 4 mg PO Q6 PRN #16 odt PRN Reason: Nausea/Vomiting Instructions: Gastroenteritis (ED) Forms: [email or web address] [facility] ([place])
[2017-10-29 03:38] LABS: BASO # 0.1 K/uL (0.0-0.2); BASO % 0.8 % (0.0-2.0); EOS # 0.1 K/uL (0.0-0.7); EOS % 0.7 % (0.0-4.0); HEMOGLOBIN 15.2 g/dL (12.0-18.0); LYMPH # 3.6 K/uL (1.0-4.3); LYMPH % 21.7 % (20.0-40.0); MEAN CELL VOLUME 88.9 fl (80.0-94.0); MEAN CORPUSCULAR HEMOGLOBIN 30.9 pg (27.0-31.0); MEAN CORPUSCULAR HGB CONC 34.7 g/dL (33.0-37.0); MONO # 1.1 K/uL (0.0-0.8); MONO % 6.9 % (0.0-10.0); NEUT # 11.6 K/uL (1.8-7.0); NEUT % 69.9 % (50.0-75.0); NRBC % 0.1 % (0.0-0.0); RBC 4.92 Mil/uL (4.40-5.90); RED CELL DISTRIBUTION WIDTH 12.9 % (11.5-14.5); WHITE BLOOD COUNT 16.6 K/uL (4.8-10.8)
[2017-10-29 03:42] LABS: ABG ALLEN TEST YES; ARTERIAL BLOOD GAS HCO3 27.2 mmol/L (21-28); ARTERIAL BLOOD GAS O2 SAT 98.4 % (95-98); ARTERIAL BLOOD GAS PCO2 39 mm/Hg (35-45); ARTERIAL BLOOD GAS PH 7.45 (7.35-7.45); ARTERIAL BLOOD GAS PO2 80 mm/Hg (80-100); ARTERIAL BLOOD GAS TCO2 28.3 mmol/L (22-28)
[2017-10-29 04:05] LABS: ALB/GLOB RATIO 0.9 (1.0-2.1); ALBUMIN 4.3 g/dL (3.5-5.0); ALT/SGPT 138 U/L (21-72); AST/SGOT 90 U/L (17-59); BLOOD UREA NITROGEN 21 mg/dl (9-20); GFR AFRICAN-AMERICAN > 60; GFR NON-AFRICAN AMERICAN > 60; LIPASE 95 U/L (23-300)
[2017-10-29] MEDS ORDERED: Iohexol 300 100 ML IJ ONE (04:17)
--- NOTE | 2017-10-29 06:05 | CT ---
EXAM: CT Abdomen and Pelvis With Intravenous Contrast EXAM DATE/TIME: 10/29/2017 3:50 AM CLINICAL HISTORY: 37 years old, male; Signs and symptoms; Vomiting; Additional info: Abd pain TECHNIQUE: Axial computed tomography images of the abdomen and pelvis with intravenous contrast. All CT scans at this facility use one or more dose reduction techniques, viz.: automated exposure control; ma/kV adjustment per patient size (including targeted exams where dose is matched to indication; i.e. head); or iterative reconstruction technique. Coronal and sagittal reformatted images were created and reviewed. CONTRAST: 95 mL of omnipaque 300 administered intravenously. COMPARISON: No relevant prior studies available. FINDINGS: The liver is decreased in attenuation consistent with fatty infiltration. The spleen is at the upper limits of normal. The pancreas and kidneys are normal. No gallstones. There are a few loops of proximal small bowel in the left upper quadrant that are distended with fluid with prominent wall and fold enhancement that could be indicative of focal enteritis however there is no stranding in the adjacent fat thus I would favor chronic etiology. If recent prior study a stent, I would be happy to correlate it. Colonic diverticulosis is present. The combination of underdistention and patient motion produces slight wall thickening and indistinctness at the junction of the descending and sigmoid colon however I do not believe there is active diverticulitis. A normal appendix is identified axial images 122 - 140. There is stranding in the subcutaneous fat posterior to the lumbar spine likely a chronic finding. Other possibilities would be traumatic or infectious etiology. Clinical relation recommended. If recent prior study is provided, I would be happy to correlate it.. IMPRESSION: Colonic diverticulosis. Small bowel loops left upper quadrant distended with fluid as discussed above.
[2017-10-29] MEDS ORDERED: Morphine 4 MG/ML VIAL IVP ONE (06:15)
[2017-10-29] MEDS ORDERED: Morphine 4 MG/ML VIAL ONE (06:16)
[2017-10-29 06:23] VITALS: O2SAT 99
[2017-10-29 06:26] VITALS: BP 130/82; PULSE 104; RESP 16
== END 2017-10-29 06:26 | disposition home or self-care (01) ==
LOC: H.ER 02:36
DX: K52.9 Noninfective gastroenteritis and colitis, unspecified (principal); E11.9 Type 2 diabetes mellitus without complications; E78.00 Pure hypercholesterolemia, unspecified; I10 Essential (primary) hypertension; Z79.84 Long term (current) use of oral hypoglycemic drugs; G89.29 Other chronic pain; K57.30 Diverticulosis of large intestine without perforation or abscess without bleeding
CPT/HCPCS: 36600; 74177; 80053; 82803; 82948; 83690; 85025; 96361; 96374; 96376; 99284; J2270; J7040; Q9967

== ENCOUNTER 2017-11-27 20:39 | Emergency (ER) | payer OTHER ==
[2017-11-27 20:39] VITALS: BMI 30.5
[2017-11-27 21:03] VITALS: RESP 18
[2017-11-27] MEDS ORDERED: Iohexol 240 (50 ml) PO ONE (21:29)
[2017-11-27] MEDS ORDERED: Sodium Chloride 0.9% 1,000 ML IV STA (21:31)
[2017-11-27] MEDS ORDERED: Iohexol 240 (50 ml) ONE (21:34)
[2017-11-27 22:19] LABS: BASO % 0.5 % (0.0-2.0); EOS # 0.1 K/uL (0.0-0.7); EOS % 0.7 % (0.0-4.0); HEMOGLOBIN 15.3 g/dL (12.0-18.0); LYMPH % 28.4 % (20.0-40.0); MEAN CORPUSCULAR HEMOGLOBIN 30.8 pg (27.0-31.0); MEAN CORPUSCULAR HGB CONC 34.6 g/dL (33.0-37.0); MEAN PLATELET VOLUME 12.3 fl (7.2-11.7); MONO # 0.6 K/uL (0.0-0.8); MONO % 5.8 % (0.0-10.0); NEUT # 6.9 K/uL (1.8-7.0); NEUT % 64.6 % (50.0-75.0); NRBC % 0.2 % (0.0-0.0); RBC 4.96 Mil/uL (4.40-5.90); WHITE BLOOD COUNT 10.6 K/uL (4.8-10.8)
[2017-11-27 22:30] LABS: ALB/GLOB RATIO 0.8 (1.0-2.1); ALBUMIN 4.3 g/dL (3.5-5.0); ALT/SGPT 162 U/L (21-72); AST/SGOT 110 U/L (17-59); BLOOD UREA NITROGEN 13 mg/dl (9-20); CALCIUM 10.2 mg/dL (8.4-10.2); GFR AFRICAN-AMERICAN > 60; GFR NON-AFRICAN AMERICAN > 60
--- NOTE | 2017-11-27 22:32 | ED PDOC ---
HPI: Abdomen Time Seen by Provider: 11/27/17 21:00 Chief Complaint (Nursing): GI Problem Chief Complaint (Provider): Vomiting, Diarrhea History Per: Patient History/Exam Limitations: no limitations Onset/Duration Of Symptoms: Days (x2) Current Symptoms Are (Timing): Still Present Additional Complaint(s): 37 y/o male with a pmhx of sciatica, chronic back pain, diabetes, and HTN, who presents to the ED complaining of abdominal pain, vomiting, and diarrhea x2 days. Patient was seen here for similar on 10/29/17, but states he is still symptomatic. Denies fever. Patient also reports having back surgery 3 months ago. States he takes Percocet daily and follows up with pain management. PMD: Dr. Canas Past Medical History Reviewed: Historical Data, Nursing Documentation, Vital Signs Vital Signs: Last Vital Signs Temp 98.5 F 11/28/17 01:26 Pulse 102 H 11/28/17 01:26 Resp 18 11/28/17 01:26 BP 124/73 11/28/17 01:26 Pulse Ox 99 11/28/17 01:50 - Medical History PMH: Arthritis, Back Problems (SCIATICA), Diabetes (type II), HTN, Hypercholesterolemia Denies: Anxiety, Bipolar Disorder, Depression, HIV, Personality Disorder, Post Traumatic Stress Disorder, Chronic Kidney Disease, Schizophrenia - Surgical History Surgical History: Back Surgery - Family History Family History: States: Unknown Family Hx - Immunization History Hx Tetanus Toxoid Vaccination: No Hx Influenza Vaccination: No Hx Pneumococcal Vaccination: No - Home Medications Home Medications: Ambulatory Orders Medication Instructions Recorded GlipiZIDE [Glucotrol] 10 mg PO BIDAC 30 Days #60 tab 08/15/17 MetFORMIN [glucoPHAGE] 1,000 mg PO BID 30 Days #60 tab 08/15/17 Pregabalin [Lyrica] 100 mg PO DAILY cap 08/15/17 Cyclobenzaprine [Flexeril] 10 mg PO TID 10/03/17 oxyCODONE/Acetaminophen [Percocet 5 - 325 mg PO PRN PRN 10/03/17 5/325 mg Tab] Dicyclomine [Bentyl] 20 mg PO Q12 PRN #20 tab 10/29/17 Ondansetron ODT [Zofran ODT] 4 mg PO Q6 PRN #16 odt 10/29/17 - Allergies Allergies/Adverse Reactions: Allergies Allergy/AdvReac Type Severity Reaction Status Date / Time No Known Allergies Allergy Verified 10/29/17 02:48 Review of Systems ROS Statement: Except As Marked, All Systems Reviewed And Found Negative Constitutional: Negative for: Fever Gastrointestinal: Positive for: Vomiting, Diarrhea Physical Exam - Reviewed Nursing Documentation Reviewed: Yes Vital Signs Reviewed: Yes - Physical Exam Appears: Positive for: Non-toxic, No Acute Distress (appears shaky as if withdrawn from narcotics, agitated, restless) Head Exam: Positive for: ATRAUMATIC, NORMAL INSPECTION, NORMOCEPHALIC Skin: Positive for: Normal Color, Warm, Dry. Negative for: Rash Eye Exam: Positive for: EOMI, Normal appearance, PERRL Neck: Positive for: Normal, Painless ROM, Supple Cardiovascular/Chest: Positive for: Regular Rate, Rhythm. Negative for: Murmur Respiratory: Positive for: Normal Breath Sounds. Negative for: Respiratory Distress Gastrointestinal/Abdominal: Positive for: Tenderness (RLQ) Back: Positive for: Normal Inspection. Negative for: L CVA Tenderness, R CVA Tenderness, Vertebral Tenderness Extremity: Positive for: Normal ROM. Negative for: Pedal Edema, Deformity Neurologic/Psych: Positive for: Alert, Oriented. Negative for: Motor/Sensory Deficits - Laboratory Results Result Diagrams: 11/27/17 21:45 11/27/17 21:45 - ECG O2 Sat by Pulse Oximetry: 99 (RA) Pulse Ox Interpretation: Normal Medical Decision Making Medical Decision Makin:29 Initial Impression: abdominal pain r/o appendicitis Plan: --CT Abdomen and pelvis w/ IV contrast --CMP --CBC --Glucose, POC --Morphine 4mg IV --Sodium Chloride 0.9% 1,000 mls/hr --Iohexol 50ml PO --Zofran Inj 4mg IV --Urine C&S --Urinalysis --Reevaluation 4180 CT FINDINGS: Lung bases: No acute findings. ABDOMEN: Liver: Enlarged. Fatty infiltration. Gallbladder and bile ducts: No calcified stones. No ductal dilation. Pancreas: No ductal dilation. No mass. Spleen: No splenomegaly. Adrenals: No mass. Kidneys and ureters: Few too small to characterize lesions within kidneys. No hydronephrosis. Stomach and bowel: Few scattered diverticula within colon. No associated inflammatory stranding. No definite mural thickening. No obstruction. PELVIS: Appendix: Normal caliber. No inflammation. Bladder: Unremarkable. Reproductive: Unremarkable as visualized. ABDOMEN and PELVIS: Intraperitoneal space: No significant fluid collection. No free air. Bones/joints: Disc herniation at L5-S1 level. No acute fracture. Soft tissues: Tiny umbilical hernia containing fat. Vasculature: Minimal atherosclerotic disease of iliac arteries. No aneurysm. Lymph nodes: Mildly enlarged short axis lymph node within upper abdomen, stable. IMPRESSION: 1. Diverticulosis without definite CT evidence of diverticulitis. 2. Incidental/non-acute findings are described above. 0015 Labs reviewed: glucose elevated at 325, LFTs elevated - pt aware Will order more fluids and insulin and re-evaluate. 0145 Upon re-evaluation, Accucheck shows patient's glucose level is at 192. Patient's pulse has improved and he is tolerating PO. Patient notes that he is aware of elevated LFTs. Patient is stable for discharge home. Dx: gastroenteritis Scribe Attestation: Documented by Rickey Grissom and Thea Velasco, acting as a scribe for Yumiko Simpson MD. Provider Scribe Attestation: All medical record entries made by the Scribe were at my direction and personally dictated by me. I have reviewed the chart and agree that the record accurately reflects my personal performance of the history, physical exam, medical decision making, and the department course for this patient. I have also personally directed, reviewed, and agree with the discharge instructions and disposition. Disposition - Clinical Impression Clinical Impression: Gastroenteritis - Patient ED Disposition Is Patient to be Admitted: No Counseled Patient/Family Regarding: Studies Performed, Diagnosis, Need For Followup - Disposition Referrals: [facility] [Outside] [facility] [Outside] Disposition: Routine/Home Disposition Time: 01:35 Condition: IMPROVED Additional Instructions: follow up with your primary doctor in 1-2 days you need to take your diabetic medication return to the ED with any worsening or concerning symptoms Instructions: Viral Gastroenteritis Forms: Re.Mu (Bengali)
[2017-11-27] MEDS ORDERED: Sodium Chloride 0.9% 100 ML ONE (23:15)
[2017-11-27] MEDS ORDERED: Iohexol 300 100 ML IJ ONE (23:15)
--- NOTE | 2017-11-27 23:56 | CT ---
EXAM: CT Abdomen and Pelvis With Intravenous Contrast CLINICAL HISTORY: 37 years old, male; Pain; Abdominal pain; Generalized; Prior surgery; Surgery date: 6+ months; Surgery type: Back surgery; Additional info: Abdominal pain, vomiting and diarrhea TECHNIQUE: Axial computed tomography images of the abdomen and pelvis with intravenous contrast. All CT scans at this facility use one or more dose reduction techniques, viz.: automated exposure control; ma/kV adjustment per patient size (including targeted exams where dose is matched to indication; i.e. head); or iterative reconstruction technique. Coronal and sagittal reformatted images were created and reviewed. CONTRAST: 95 mL of [id number] administered intravenously. COMPARISON: CT - ABD PELVIS IV CONTRAST ONLY 2017-10-29 04:27 FINDINGS: Lung bases: No acute findings. ABDOMEN: Liver: Enlarged. Fatty infiltration. Gallbladder and bile ducts: No calcified stones. No ductal dilation. Pancreas: No ductal dilation. No mass. Spleen: No splenomegaly. Adrenals: No mass. Kidneys and ureters: Few too small to characterize lesions within kidneys. No hydronephrosis. Stomach and bowel: Few scattered diverticula within colon. No associated inflammatory stranding. No definite mural thickening. No obstruction. PELVIS: Appendix: Normal caliber. No inflammation. Bladder: Unremarkable. Reproductive: Unremarkable as visualized. ABDOMEN and PELVIS: Intraperitoneal space: No significant fluid collection. No free air. Bones/joints: Disc herniation at L5-S1 level. No acute fracture. Soft tissues: Tiny umbilical hernia containing fat. Vasculature: Minimal atherosclerotic disease of iliac arteries. No aneurysm. Lymph nodes: Mildly enlarged short axis lymph node within upper abdomen, stable. IMPRESSION: 1. Diverticulosis without definite CT evidence of diverticulitis. 2. Incidental/non-acute findings are described above.
[2017-11-28] MEDS ORDERED: Insulin Regular 100 units/ml SC STA (00:04)
[2017-11-28] MEDS ORDERED: Sodium Chloride 0.9% 1,000 ML IV STA (00:15)
[2017-11-28 01:26] VITALS: BP 124/73; PULSE 102; TEMP 98.5
[2017-11-28 01:49] VITALS: O2SAT 99
== END 2017-11-28 02:13 | disposition home or self-care (01) ==
LOC: H.ER 20:39
DX: K52.9 Noninfective gastroenteritis and colitis, unspecified (principal); E11.9 Type 2 diabetes mellitus without complications; E78.00 Pure hypercholesterolemia, unspecified; I10 Essential (primary) hypertension; Z79.84 Long term (current) use of oral hypoglycemic drugs
CPT/HCPCS: 74177; 80053; 82948; 85025; 96361; 96372; 96374; 96375; 96376; 99284; J2270; J2405; J7030; Q9966; Q9967

== ENCOUNTER 2017-12-11 13:14 | Inpatient (IN) | payer OTHER ==
[2017-12-11 13:15] VITALS: BMI 30.5
[2017-12-11] MEDS ORDERED: Sodium Chloride 0.9% 2,000 ML IV STA (14:07)
--- NOTE | 2017-12-11 14:22 | ED PDOC ---
HPI: General Adult Time Seen by Provider: 12/11/17 14:19 Chief Complaint (Nursing): Dizziness/Lightheaded Chief Complaint (Provider): DIZZINESS History Per: Patient (37 Y/O MALE H/O IDDM WITH COMPLAINT OF SWEATING/DIZZINESS TODAY. DENIES ANY CHEST PAIN/ABDOMINAL PAIN. HAS NOTED ELEVATED GLUCOSE TODAY AND WAS SEEN BY DR. CESPEDES FOR SYMPTOMS. DID NOT TAKE INSULIN/METFORMIN TODAY. PATIENT TAKES PERCOCET DAILY FOR LEG PAIN AND DID NOT TAKE TODAY B/C HE WAS FEELING UNWELL.) Past Medical History Reviewed: Historical Data, Nursing Documentation, Vital Signs Vital Signs: Last Vital Signs Temp 98.4 F 12/11/17 13:20 Pulse 92 H 12/11/17 13:20 Resp 17 12/11/17 13:20 BP 102/67 12/11/17 13:20 Pulse Ox 96 12/11/17 16:35 - Medical History PMH: Arthritis, Back Problems (SCIATICA), Diabetes (type II), HTN, Hypercholesterolemia Denies: Anxiety, Bipolar Disorder, Depression, HIV, Personality Disorder, Post Traumatic Stress Disorder, Chronic Kidney Disease, Schizophrenia - Surgical History Surgical History: Back Surgery - Family History Family History: States: Unknown Family Hx - Immunization History Hx Tetanus Toxoid Vaccination: No Hx Influenza Vaccination: No Hx Pneumococcal Vaccination: No - Home Medications Home Medications: Ambulatory Orders Medication Instructions Recorded GlipiZIDE [Glucotrol] 10 mg PO BIDAC 30 Days #60 tab 08/15/17 Cyclobenzaprine [Flexeril] 10 mg PO TID 10/03/17 oxyCODONE/Acetaminophen [Percocet 5 - 325 mg PO Q6 10/03/17 5/325 mg Tab] Dicyclomine [Bentyl] 20 mg PO Q12 PRN #20 tab 10/29/17 Clonidine HCl [Catapres] 12/11/17 Cyclobenzaprine [Flexeril] 10 mg PO HS 12/11/17 DULoxetine [Cymbalta] 60 mg PO HS 12/11/17 Pregabalin [Lyrica] 100 mg PO Q8 12/11/17 - Allergies Allergies/Adverse Reactions: Allergies Allergy/AdvReac Type Severity Reaction Status Date / Time No Known Allergies Allergy Verified 12/11/17 13:19 Review of Systems ROS Statement: Except As Marked, All Systems Reviewed And Found Negative Physical Exam - Reviewed Nursing Documentation Reviewed: Yes Vital Signs Reviewed: Yes - Physical Exam Appears: Positive for: Well, Non-toxic, No Acute Distress Head Exam: Positive for: ATRAUMATIC, NORMAL INSPECTION, NORMOCEPHALIC Skin: Positive for: Normal Color, Warm, DRY Eye Exam: Positive for: EOMI, Normal appearance, PERRL ENT: Positive for: Normal ENT Inspection Neck: Positive for: Normal, Painless ROM Cardiovascular/Chest: Positive for: Regular Rate, Rhythm Respiratory: Positive for: CNT, Normal Breath Sounds Gastrointestinal/Abdominal: Positive for: Normal Exam, Soft Back: Positive for: Normal Inspection Extremity: Positive for: Normal ROM Neurologic/Psych: Positive for: Alert, Oriented - Laboratory Results Result Diagrams: 12/11/17 14:15 12/11/17 14:15 - ECG O2 Sat by Pulse Oximetry: 96 - Progress ED Course And Treament: ACCUCHECK 414 EKG: NSR 85BPM; NO ECTOPY T WAVE INV LEAD III; NO ACUTE CHANGES NS 2 LITERS WIDE OPEN Repeat Blood sugar 325 Insulin 8 units iv x [address] Child. d/w Dr. Cespedes Disposition - Clinical Impression Clinical Impression: Hyperglycemia, Uncontrolled diabetes mellitus with hyperglycemia - Patient ED Disposition Is Patient to be Admitted: Yes - Disposition Disposition: Routine/Home Disposition Time: 16:00 Condition: FAIR - Pt Status Changed To: Hospital Disposition Of: Observation
[2017-12-11 14:33] LABS: BASO # 0.2 K/uL (0.0-0.2); BASO % 1.9 % (0.0-2.0); EOS # 0.1 K/uL (0.0-0.7); EOS % 1.6 % (0.0-4.0); HEMOGLOBIN 13.8 g/dL (12.0-18.0); LYMPH % 25.2 % (20.0-40.0); MEAN CELL VOLUME 88.1 fl (80.0-94.0); MEAN CORPUSCULAR HEMOGLOBIN 30.6 pg (27.0-31.0); MEAN CORPUSCULAR HGB CONC 34.8 g/dL (33.0-37.0); MEAN PLATELET VOLUME 12.3 fl (7.2-11.7); MONO # 1.5 K/uL (0.0-0.8); MONO % 17.9 % (0.0-10.0); NEUT # 4.3 K/uL (1.8-7.0); NEUT % 53.4 % (50.0-75.0); NRBC % 0.3 % (0.0-0.0); RBC 4.5 Mil/uL (4.40-5.90); WHITE BLOOD COUNT 8.1 K/uL (4.8-10.8)
[2017-12-11 14:36] LABS: VENOUS BLOOD GAS BASE EXCESS 6.5 mmol/L (0.0-2.0); VENOUS BLOOD GAS PCO2 60 mmHg (40-60); VENOUS BLOOD GAS PO2 30 mm/Hg (30-55); VENOUS BLOOD PH 7.36 (7.32-7.43)
[2017-12-11 15:09] LABS: ALB/GLOB RATIO 0.9 (1.0-2.1); ALBUMIN 4.2 g/dL (3.5-5.0); ALT/SGPT 128 U/L (21-72); AST/SGOT 73 U/L (17-59); BLOOD UREA NITROGEN 15 mg/dl (9-20); CALCIUM 11.5 mg/dL (8.4-10.2); GFR AFRICAN-AMERICAN > 60; GFR NON-AFRICAN AMERICAN > 60
[2017-12-11] MEDS ORDERED: Insulin Regular 100 units/ml IVP ONE (15:29)
[2017-12-11] MEDS ORDERED: Sodium Chloride 0.9% 1,000 ML IV STA (15:58)
[2017-12-11] MEDS ORDERED: Insulin Regular 100 units/ml ONE (16:24)
[2017-12-11] MEDS: Oxycodone/Acetaminophen 5/325 mg Tab PO PRN (21:15)
[2017-12-11] MEDS: Sodium Chloride 0.9% 1,000 ML IV SCH (21:48)
[2017-12-11] MEDS: Insulin Regular 100 units/ml SC SCH (22:22)
[2017-12-11] MEDS ORDERED: Enoxaparin 40 mg Syringe SC STA ×2 (22:47)
[2017-12-12] MEDS: Oxycodone/Acetaminophen 5/325 mg Tab PO PRN ×2 (05:10→13:43)
[2017-12-12 05:21] LABS: BLOOD UREA NITROGEN 12 mg/dl (9-20); CALCIUM 8.4 mg/dL (8.4-10.2); GFR AFRICAN-AMERICAN > 60; GFR NON-AFRICAN AMERICAN > 60
[2017-12-12 05:23] LABS: BASO # 0.1 K/uL (0.0-0.2); EOS # 0.2 K/uL (0.0-0.7); EOS % 3.3 % (0.0-4.0); HEMOGLOBIN 12.3 g/dL (12.0-18.0); LYMPH # 2.6 K/uL (1.0-4.3); LYMPH % 34.5 % (20.0-40.0); MEAN CELL VOLUME 89.6 fl (80.0-94.0); MEAN CORPUSCULAR HEMOGLOBIN 31.4 pg (27.0-31.0); MEAN PLATELET VOLUME 12.4 fl (7.2-11.7); MONO # 0.7 K/uL (0.0-0.8); MONO % 8.8 % (0.0-10.0); NEUT # 3.9 K/uL (1.8-7.0); NEUT % 52.4 % (50.0-75.0); NRBC % 0.2 % (0.0-0.0); RBC 3.91 Mil/uL (4.40-5.90); RED CELL DISTRIBUTION WIDTH 12.9 % (11.5-14.5); WHITE BLOOD COUNT 7.5 K/uL (4.8-10.8)
--- NOTE | 2017-12-12 08:53 | CP.PCM.DIS ---
Provider - Provider Date of Admission: 12/11/17 16:14 Attending physician: Mo Palcaios MD Time Spent in preparation of Discharge (in minutes): 30 Diagnosis - Discharge Diagnosis (1) Hypertension Status: Acute (2) Dehydration Status: Acute (3) Hyperglycemia Status: Acute (4) Uncontrolled diabetes mellitus with hyperglycemia Status: Acute (5) Disc disorder Status: Acute (6) Lumbar back pain with radiculopathy affecting right lower extremity Status: Acute (7) Near syncope Status: Acute (8) Poor compliance Status: Acute Hospital Course - Lab Results Lab Results: Most Recent Lab Values WBC 7.5 K/uL (4.8-10.8) 12/12/17 04:35 RBC 3.91 Mil/uL (4.40-5.90) L 12/12/17 04:35 Hgb 12.3 g/dL (12.0-18.0) 12/12/17 04:35 Hct 35.1 % (35.0-51.0) 12/12/17 04:35 MCV 89.6 fl (80.0-94.0) 12/12/17 04:35 MCH 31.4 pg (27.0-31.0) H 12/12/17 04:35 MCHC 35.0 g/dL (33.0-37.0) 12/12/17 04:35 RDW 12.9 % (11.5-14.5) 12/12/17 04:35 Plt Count 99 K/uL (130-400) L D 12/12/17 04:35 MPV 12.4 fl (7.2-11.7) H 12/12/17 04:35 Neut % (Auto) 52.4 % (50.0-75.0) 12/12/17 04:35 Lymph % (Auto) 34.5 % (20.0-40.0) 12/12/17 04:35 [place] % (Auto) 8.8 % (0.0-10.0) 12/12/17 04:35 Eos % (Auto) 3.3 % (0.0-4.0) 12/12/17 04:35 Baso % (Auto) 1.0 % (0.0-2.0) 12/12/17 04:35 Neut # (Auto) 3.9 K/uL (1.8-7.0) 12/12/17 04:35 Lymph # (Auto) 2.6 K/uL (1.0-4.3) 12/12/17 04:35 [place] # (Auto) 0.7 K/uL (0.0-0.8) 12/12/17 04:35 Eos # (Auto) 0.2 K/uL (0.0-0.7) 12/12/17 04:35 Baso # (Auto) 0.1 K/uL (0.0-0.2) 12/12/17 04:35 pO2 30 mm/Hg (30-55) 12/11/17 14:29 VBG pH 7.36 (7.32-7.43) 12/11/17 14:29 VBG pCO2 60 mmHg (40-60) 12/11/17 14:29 VBG HCO3 28.8 mmol/L 12/11/17 14:29 VBG Total CO2 35.7 mmol/L (22-28) H 12/11/17 14:29 VBG O2 Sat (Calc) 51.2 % (40-65) 12/11/17 14:29 VBG Base Excess 6.5 mmol/L (0.0-2.0) H 12/11/17 14:29 VBG Potassium 4.6 mmol/L (3.6-5.2) 12/11/17 14:29 Sodium 134.0 mmol/L (132-148) 12/11/17 14: Chloride 95.0 mmol/L (98-107) L 12/11/17 14:29 Glucose 506 mg/dL (75-110) H* D 12/11/17 14:29 Lactate 2.1 mmol/L (0.7-2.1) 12/11/17 14:29 FiO2 21.0 % 12/11/17 14:29 Blood Gas Comments Lac=2.1 12/11/17 14:29 Crit Value Called To jeanette Gagnon 12/11/17 14:29 Crit Value Called By 12/11/17 14:29 Crit Value Read Back Y 12/11/17 14:29 Blood Gas Notified Time 1435 12/11/17 14:29 Sodium 136 mmol/l (132-148) 12/12/17 04:35 Potassium 4.3 MMOL/L (3.6-5.0) 12/12/17 04:35 Chloride 101 mmol/L (98-107) 12/12/17 04:35 Carbon Dioxide 27 mmol/L (22-30) 12/12/17 04:35 Anion Gap 12 (10-20) 12/12/17 04:35 BUN 12 mg/dl (9-20) 12/12/17 04:35 Creatinine 0.5 mg/dl (0.8-1.5) L 12/12/17 04:35 Est GFR ( Amer) > 60 12/12/17 04:35 Est GFR (Non-Af Amer) > 60 12/12/17 04:35 POC Glucose (mg/dL) 247 mg/dL (65-110) H 12/12/17 05:32 Random Glucose 251 mg/dL (75-110) H 12/12/17 04:35 Calcium 8.4 mg/dL (8.4-10.2) 12/12/17 04:35 Magnesium 1.5 MG/DL (1.6-2.3) L 12/11/17 14:15 Total Bilirubin 0.7 mg/dl (0.2-1.3) 12/11/17 14:15 AST 73 U/L (17-59) H D 12/11/17 14:15 ALT 128 U/L (21-72) H D 12/11/17 14:15 Alkaline Phosphatase 123 U/L (38-126) 12/11/17 14:15 Troponin I < 0.0120 ng/mL (0.00-0.120) 12/11/17 14:15 Total Protein 9.0 G/DL (6.3-8.2) H 12/11/17 14:15 Albumin 4.2 g/dL (3.5-5.0) 12/11/17 14:15 Globulin 4.8 gm/dL (2.2-3.9) H 12/11/17 14:15 Albumin/Globulin Ratio 0.9 (1.0-2.1) L 12/11/17 14:15 Venous Blood Potassium 4.6 mmol/L (3.6-5.2) 12/11/17 14:29 - Hospital Course Hospital Course: serum glucose and clinical condition improved with therapy Discharge Exam - Head Exam Head Exam: ATRAUMATIC, NORMAL INSPECTION, NORMOCEPHALIC - Eye Exam Eye Exam: EOMI, Normal appearance, PERRL Pupil Exam: NORMAL ACCOMODATION, PERRL - GI/Abdominal Exam GI & Abdominal Exam: Normal Bowel Sounds - Rectal Exam Rectal Exam: NORMAL INSPECTION - Neurological Exam Neurological exam: Alert, CN II-XII Intact, Normal Gait, Oriented x3, Reflexes Normal - Psychiatric Exam Psychiatric exam: Normal Affect, Normal Mood - Skin Skin Exam: Dry, Intact, Normal Color, Warm Discharge Plan - Follow Up Plan Condition: FAIR Disposition: HOME/ ROUTINE Patient education suggested?: Yes Additional Instructions: discharge today follow up with dr palacios
[2017-12-12] MEDS: Enoxaparin 40 mg Syringe SC SCH (09:28)
[2017-12-12] MEDS: Insulin Regular 100 units/ml SC SCH ×4 (10:00→22:46)
--- NOTE | 2017-12-12 11:47 | MRI ---
PROCEDURE: MRI BRAIN WITHOUT CONTRAST HISTORY: syncope COMPARISON: None. TECHNIQUE: Multiplanar, multisequence MR images of the brain were obtained without intravenous contrast enhancement. FINDINGS: HEMORRHAGE: None DWI: No evidence of an acute or early subacute infarction. BRAIN PARENCHYMA: Intrinsic signal throughout the hill and white matter structures above below the tentorium includes appears within normal limits including the brainstem. There is no mass effect, parenchymal edema or loss of the corticomedullary differentiation. Midline brain anatomy appears within normal limits including the corpus callosum, brainstem and craniocervical junction. There is no suspicious extra-axial fluid collection identified. VENTRICLES: Unremarkable. No hydrocephalus. CRANIUM: Unremarkable. ORBITS: Grossly unremarkable. PARANASAL SINUSES/MASTOIDS: Clear VASCULAR SYSTEM: Skull base flow voids intact. OTHER FINDINGS: None. IMPRESSION: Unremarkable non contrast enhanced MRI of the brain.
--- NOTE | 2017-12-12 13:50 | RAD ---
HISTORY: uri COMPARISON: Portable chest 10/03/2017. TECHNIQUE: Chest PA and lateral FINDINGS: LUNGS: No acute infiltrate bilaterally. Linear atelectasis is appreciate the mid right lung zone versus trace thickening of the minor fissure. PLEURA: No significant pleural effusion identified. No pneumothorax apparent. CARDIOVASCULAR: Normal. OSSEOUS STRUCTURES: No significant abnormalities. VISUALIZED UPPER ABDOMEN: Normal. OTHER FINDINGS: None. IMPRESSION: No suspicious interval cardiopulmonary disease appreciable. Linear atelectasis seen at the mid right lung zone laterally versus trace thickening minor fissure.
--- NOTE | 2017-12-12 15:57 | CP.PCM.PCO ---
Assessment & Plan - Assessment and Plan (Free Text) Assessment: Patient for pending discharge this afternoon. Called to evaluate patient due to diaphoresis and weakness. Patient with blood sugar 317, feels weak, diaphoretic. Vital signs stable, afebrile. IV fluids restarted, insulin ordered, endocrinology consult with Dr Goss who will see patient tomorrow Discharge on hold for today. Discussed with Dr Canas. - Date & Time Time: 16:20
[2017-12-12] MEDS ORDERED: Sodium Chloride 0.9% 1,000 ML IV SCH (16:00)
[2017-12-12] MEDS: Sodium Chloride 0.9% 1,000 ML IV SCH (17:59)
[2017-12-12] MEDS ORDERED: Morphine 4 MG/ML VIAL IV PRN (18:11)
[2017-12-12] MEDS ORDERED: Lactulose 10 gm/15 ml Syrup PO PRN (18:14)
--- NOTE | 2017-12-12 19:28 | HP ---
HISTORY OF PRESENT ILLNESS: Mr. Rosales is a 37-year-old male, who was admitted via the emergency room because of profuse sweating, dizziness with recurrent blackout episodes at home and elevated blood sugar. He was seen in the office and sent to the emergency room for evaluation and therapy. He has a past medical history of diabetes mellitus and has been poorly compliant to medications and diet. He also has a history of recent hypertension, sciatica with hypercholesterolemia. FAMILY HISTORY: Unremarkable. SOCIAL HISTORY: Socially, he does not drink or smoke and lives at home with . REVIEW OF SYSTEM: Remarkable for dizziness and recurrent syncopal episodes at home associated with polyuria, polydipsia, and polyphagia. PHYSICAL EXAMINATION: GENERAL: The patient is alert and oriented, was sweating profusely when seen first. VITAL SIGNS: Blood pressure 102/67, pulse of 92, respiratory rate 17. He is febrile. O2 sat 96% on room air. SKIN: Shows poor turgor. Mouth shows dry mucosa. LUNGS: Fair aeration. HEART: Regular. No murmurs or gallop. ABDOMEN: Soft, nontender. No organomegaly. EXTREMITIES: Show no edema or cyanosis. GENITAL AND RECTAL: Unremarkable. CENTRAL NERVOUS SYSTEM: Essentially unremarkable. LABORATORY DATA: On admission was remarkable for WBC of 8.1, hemoglobin 13.8, and platelet count of 120,000. Sodium 135, potassium 4.7, BUN 15, creatinine 0.7, and serum glucose of 478. EKG is regular sinus rhythm. IMPRESSION: Uncontrolled diabetes type 2 with severe hyperglycemia, no evidence of diabetic ketoacidosis, severe dehydration, poor compliance to medication and diet, hypertension, history of hyperlipidemia. PLAN: IV hydration. Monitor blood sugar closely and treat appropriately. Advised compliance to medication and diet. We will obtain CT scan of the brain to evaluate reason for syncope, which probably secondary to hyperglycemia. If clinically stable, we will discharge today. Followup as an outpatient. The patient was advised to follow up with an Personalization Specialist. He has been advised to do this on multiple occasions, but has not. Mo Canas MD
[2017-12-12] MEDS: Morphine 4 MG/ML VIAL IV PRN (20:08)
[2017-12-12] MEDS ORDERED: Insulin Detemir 100 Units/ml Inj SC STA (22:45)
[2017-12-13] MEDS: Morphine 4 MG/ML VIAL IV PRN ×5 (00:21→18:22)
[2017-12-13 06:33] LABS: ALB/GLOB RATIO 0.8 (1.0-2.1); ALBUMIN 3.7 g/dL (3.5-5.0); ALT/SGPT 123 U/L (21-72); AST/SGOT 94 U/L (17-59); BLOOD UREA NITROGEN 13 mg/dl (9-20); GFR AFRICAN-AMERICAN > 60; GFR NON-AFRICAN AMERICAN > 60; HDL CHOLESTEROL 20 MG/DL (30-70); LDL CHOLESTEROL < 30 mg/dL (0-129)
--- NOTE | 2017-12-13 07:46 | CON ---
ENDOCRINOLOGY CONSULTATION DATE: LOCATION: In room 416. HISTORY OF PRESENT ILLNESS: This is a 37-year-old male with known history of type 2 diabetes and hypertension, presenting here with progressively worsening dizziness and lightheadedness with supervening recurrent syncopal episodes and is now being referred for diabetic evaluation because of persistent hyperglycemic accelerations as noted thereof. PAST MEDICAL HISTORY He has significant history of poor adherence and compliance to his diabetic medications and has had type 2 diabetes for over 10 years now and was previously on metformin given as 1 g b.i.d. and glipizide at 10 mg b.i.d., history of hypertension and dyslipidemia, history of lumbar disk disease and osteoarthritis with persistent lower back pain with radicular pain especially to the right lower extremities. FAMILY HISTORY Positive for hypertension and diabetes. SOCIAL HISTORY The patient has a supportive family. No known substance use. REVIEW OF SYSTEMS As mentioned above, admits to generalized body weakness with progressive bouts of dizziness and lightheadedness with frequent bouts of near syncopal and syncopal episodes with associated marked diaphoresis as noted. Also admits to bifrontal headaches and visual blurring with insomnia and disrupted sleep patterns. No chest pains or palpitations, but admits to occasional bouts of shortness of breath especially on exertion. His oral intake has been variable with dyspepsia, nausea, and habitual constipation. Also admits to marked polyuria, nocturia, and polydipsia and even hyperphagia as noted. He also admits to lower extremity paresthesias, especially nocturnally and also episodic bouts of lower back pain as noted. PHYSICAL EXAMINATION: GENERAL: This is an average built male in no apparent distress. VITAL SIGNS: Blood pressure of 150/90, pulse of 70 beats per minute and regular, temperature 98, respirations 20, height is 5 feet 7 inches, and weight is 195 pounds. HEENT: Head is normocephalic. Eyes anicteric with pink conjunctivae. Funduscopy not possible at this time. Ears, nose, and throat otherwise normal. NECK: Supple. Thyroid gland is normal in size. No carotid bruits or any cervical adenopathy. CARDIOPULMONARY: Some adynamic precordium. S1 and S2 is rapid and regular. LUNGS: Clear to auscultation. ABDOMEN: Flat and soft with positive bowel sounds. EXTREMITIES: No peripheral edema. Pulses are +2 bilaterally. LABORATORY DATA: His chemistries showed a BUN of 12, sodium 136, potassium 4.3, chloride 101, CO2 of 27, glucose 251, and creatinine 0.5. His glucose values are fluctuating and elevated ranging from 297 to 309 and 381 mg/dL. ASSESSMENT: This is a 37-year-old male with uncontrolled and decompensated type 2 insulin-requiring diabetes clearly with secondary pancreatic failure despite oral hypoglycemic therapy and associated marked insulin resistance thereof and also very strong history of poor adherence to his oral hypoglycemic drug regimen as noted. PLAN OF MANAGEMENT: I discussed with the patient lengthily at bedside imperative need for optimal and tighter metabolic control be overemphasized especially to forestall and prevent microvascular complications and also macrovascular complications of uncontrolled type 2 diabetes. He is clearly insulin requiring at this time, especially with marked glucose toxicity and the need to improve his metabolic profile so that with the lower glucose values from insulin therapy then the oral hypoglycemic therapy given in combination can be more effective and efficacious thereof. Plan of management, we will add a stat dose of Levemir tonight of 12 units and tomorrow we will start with Levemir 20 units at bedtime as ordered. It will be ideal to add Humalog for postprandial glycemic excursions, but because of his poor adherence or compliance, we will hold off the addition of Humalog for his mealtime and instead just add basal insulin as ordered. We will also add Januvia at 100 mg once daily in the morning together with his glipizide given as 10 mg b.i.d. before meals and metformin at 1 g b.i.d. after meals as ordered. We will modify the coverage scale to hypoglycemia and detailed orders have been given. We will obtain serial chemistries and supplement accordingly as needed. We will also add a hemoglobin A1c to confirm his prior poor glycemic control and baseline thyroid function studies and the lipid panel will be ordered. We will reinforce diabetic education and dietary instructions, especially with stronger adherence to his oral hypoglycemic drug therapy and the healthier food choices at home. We will follow. Lolis Goss MD
--- NOTE | 2017-12-13 08:48 | US ---
HISTORY: abd pain COMPARISON: None. TECHNIQUE: Sonographic evaluation of the abdomen. FINDINGS: LIVER: Measures 17.8 cm. Diffusely increased echogenicity of the liver parenchyma is appreciated suggestive of diffuse fatty infiltration. No mass. No intrahepatic bile duct dilatation. GALLBLADDER: Unremarkable. No gallstones. COMMON BILE DUCT: Measures mm. No stones. No dilatation. PANCREAS: Unremarkable as visualized. No mass. No ductal dilatation. RIGHT KIDNEY: Measures 12.7cm. Normal echogenicity. No calculus, mass, or hydronephrosis. LEFT KIDNEY: Measures 11.8cm. Normal echogenicity. No calculus, mass, or hydronephrosis. SPLEEN: Spleen is borderline enlarged at 13.1 cm without focal mass appreciable. Unremarkable echo-pattern otherwise. AORTA: No aneurysmal dilatation. IVC: Unremarkable. OTHER FINDINGS: None. IMPRESSION: Borderline splenomegaly. Hepatic steatosis suggested.
[2017-12-13] MEDS: Enoxaparin 40 mg Syringe SC SCH (08:51)
[2017-12-13] MEDS: Insulin Regular 100 units/ml SC SCH ×5 (08:52→22:00)
--- NOTE | 2017-12-13 09:55 | CP.PCM.PN ---
Subjective - Date & Time of Evaluation Date of Evaluation: 12/13/17 Time of Evaluation: 09:57 - Subjective Subjective: DISCHARGE WAS CANCELLED YESTERDAY BECAUSE OF ABDOMINAL PAINS/DIAPHORESES AND DIZZINESS WITH SEVERE HYPERGLYCEMIA STILL ILL YHIS AM BUT FEELS SLIGHTLY BETTER Objective - Vital Signs/Intake and Output Vital Signs (last 24 hours): Temp Pulse Resp BP Pulse Ox 97.9 F 71 18 128/81 96 12/13/17 07:52 12/13/17 07:52 12/13/17 07:52 12/13/17 07:52 12/13/17 07:52 - Medications Medications: Current Medications Clonidine HCl (Catapres) 0.2 mg PO Q8 PRN PRN Reason: hyperten Duloxetine HCl (Cymbalta) 60 mg PO [facility] Last Admin: 12/12/17 22:42 Dose: 60 mg Enoxaparin Sodium (Lovenox) 40 mg SC DAILY [facility] PRN Reason: Protocol Last Admin: 12/13/17 08:51 Dose: 40 mg Glipizide (Glucotrol) 10 mg PO BID [facility] Last Admin: 12/13/17 08:52 Dose: 10 mg Ceftriaxone Sodium 1 gm/ (Sodium Chloride) 100 mls @ 100 mls/hr IVPB DAILY [facility] PRN Reason: Protocol Last Admin: 12/12/17 09:29 Dose: 100 mls/hr Sodium Chloride (Sodium Chloride 0.9%) 1,000 mls @ 100 mls/hr IV .Q10H [facility] Stop: 12/13/17 15:52 Last Admin: 12/13/17 05:14 Dose: 100 mls/hr Insulin Detemir (Levemir) 20 units SC [facility] Insulin Human Regular (Humulin R) 0 units SC [facility] PRN Reason: Protocol Last Admin: 12/13/17 08:52 Dose: 3 unit Lactulose (Enulose) 10 gm PO DAILY PRN PRN Reason: Constipation Last Admin: 12/12/17 22:42 Dose: 10 gm Metformin HCl (Glucophage) 1,000 mg PO BID [facility] Last Admin: 12/13/17 08:52 Dose: 1,000 mg Morphine Sulfate (Morphine) 2 mg IV Q4 PRN PRN Reason: Pain, severe (8-10) Last Admin: 12/13/17 09:00 Dose: 2 mg Pantoprazole Sodium (Protonix Inj) 40 mg IVP DAILY [facility] Last Admin: 12/13/17 08:53 Dose: 40 mg Sitagliptin Phosphate (Januvia) 100 mg PO DAILY [facility] Last Admin: 12/13/17 08:53 Dose: 100 mg - Labs Labs: 12/12/17 04:35 12/13/17 04:50 - Constitutional Appears: Chronically Ill - Head Exam Head Exam: ATRAUMATIC, NORMAL INSPECTION, NORMOCEPHALIC - Eye Exam Eye Exam: EOMI, Normal appearance, PERRL Pupil Exam: NORMAL ACCOMODATION, PERRL - ENT Exam ENT Exam: Mucous Membranes Moist, Normal Exam - Neck Exam Neck Exam: Full ROM, Normal Inspection. absent: Lymphadenopathy - Respiratory Exam Respiratory Exam: Clear to Ausculation Bilateral, NORMAL BREATHING PATTERN - Cardiovascular Exam Cardiovascular Exam: REGULAR RHYTHM, +S1, +S2. absent: Murmur - GI/Abdominal Exam GI & Abdominal Exam: Soft, Normal Bowel Sounds. absent: Tenderness - Rectal Exam Rectal Exam: NORMAL INSPECTION - Extremities Exam Extremities Exam: Full ROM, Normal Capillary Refill, Normal Inspection. absent : Joint Swelling, Pedal Edema - Back Exam Back Exam: NORMAL INSPECTION - Neurological Exam Neurological Exam: Alert, Awake, CN II-XII Intact, Normal Gait, Oriented x3 - Psychiatric Exam Psychiatric exam: Normal Affect, Normal Mood - Skin Skin Exam: Dry, Intact, Normal Color, Warm Assessment and Plan (1) Hypertension Status: Acute (2) Dehydration Status: Acute (3) Hyperglycemia Status: Acute (4) Uncontrolled diabetes mellitus with hyperglycemia Status: Acute (5) Disc disorder Status: Acute (6) Lumbar back pain with radiculopathy affecting right lower extremity Status: Acute (7) Near syncope Status: Acute (8) Poor compliance Status: Acute (9) Hyperlipidemia Status: Acute (10) Hyperlipidemia associated with type 2 diabetes mellitus Status: Acute (11) Fatty liver Status: Acute - Assessment and Plan (Free Text) Plan: CONTINUE IV HYDRATION ENDOCRINE EVAL APPRECIATED MONITOR S.GLU UNABLE TO COLLECT URINE TOXICOLOGY WILL GIVE ANTILIPIDS PAIN MANAGEMENT RE-EVAL RE-PAIN MEDS--?WITHDRAWAL FROM MEDS DIETARY CONSULT
--- NOTE | 2017-12-13 15:27 | PN ---
DATE: 12/13/2017 ENDO FOLLOWUP NOTE LOCATION: Room 416. SUBJECTIVE: This is a 37-year-old male with recent uncontrolled type 2 insulin-requiring diabetes with persistent hyperglycemic accelerations and is now being followed closely for metabolic management. His glycemic levels are fluctuating as noted with postprandial hyperglycemic accelerations as observed today and glucose levels are ranging from 274 mg/dL to 339 mg/dL. His latest chemistries include BUN of 13, sodium of 141, potassium 4, chloride of 99, CO2 of 27, glucose of 264, and creatinine of 0.6. His bedtime glucose was 297 mg/dL to 309 mg/dL. His hemoglobin A1c is 13.8%, which is extremely elevated and indicative of suboptimal metabolic control on the outpatient and also the imperative need for insulin therapy as noted. ASSESSMENT: This is a 37-year-old male with uncontrolled and decompensated type 2 insulin-requiring diabetes related primarily to drug omission and poor adherence to his oral hypoglycemic therapy with clearly the need for insulin therapy to optimize his metabolic control. PLAN OF MANAGEMENT: The biggest concern at this time is the patient's reluctance for insulin therapy at this point in time and at least for inpatient management, we will continue the basal insulin given as Levemir at 20 units subcu at bedtime daily to start tonight. We will continue the dual oral hypoglycemic drug therapy as given with metformin given as 1 g 2 times a day and Glucotrol given as 10 mg 2 times a day before meals as ordered. We have also added the third oral hypoglycemic therapy given as Januvia at 100 mg once daily in the morning as ordered. Upon discharge to enhance compliance, we would give a combination of Janumet given as mg 2 times a day with his glipizide given as 10 mg 2 times a day as ordered. We will continue the IV hydration for now to optimize his fluid and electrolyte losses from the increased osmotic diuresis thereof. We will obtain serial chemistries and supplement accordingly as needed. We will follow up. Lolis Goss MD
[2017-12-13] MEDS ORDERED: Insulin Detemir 100 Units/ml Inj SC SCH (22:00)
[2017-12-14] MEDS: Morphine 4 MG/ML VIAL IV PRN ×4 (02:49→21:13)
[2017-12-14] MEDS: Insulin Regular 100 units/ml SC SCH ×2 (06:54→11:24)
[2017-12-14] MEDS: Enoxaparin 40 mg Syringe SC SCH (08:45)
[2017-12-14] MEDS: Omega-3-Acid Ethyl Esters 1 GM Cap PO SCH ×2 (08:45→16:28)
--- NOTE | 2017-12-14 08:58 | CP.PCM.PN ---
Subjective - Date & Time of Evaluation Date of Evaluation: 12/14/17 Time of Evaluation: 09:00 - Subjective Subjective: C/O HALLUCINATION YESTERDAY WITH EXCESSIVE SWEATING DEMANDING FOR MORE MEDS FOR PAIN Objective - Vital Signs/Intake and Output Vital Signs (last 24 hours): Temp Pulse Resp BP Pulse Ox 97.8 F 74 20 155/109 H 95 12/14/17 08:13 12/14/17 08:13 12/14/17 08:13 12/14/17 08:13 12/14/17 08:13 - Medications Medications: Current Medications Atorvastatin Calcium (Lipitor) 40 mg PO DAILY [facility] Last Admin: 12/14/17 08:45 Dose: 40 mg Clonidine HCl (Catapres) 0.2 mg PO Q8 PRN PRN Reason: hyperten Duloxetine HCl (Cymbalta) 60 mg PO [facility] Last Admin: 12/13/17 21:41 Dose: 60 mg Enoxaparin Sodium (Lovenox) 40 mg SC DAILY [facility] PRN Reason: Protocol Last Admin: 12/14/17 08:45 Dose: 40 mg Fenofibrate (Tricor) 145 mg PO DAILY [facility] Last Admin: 12/14/17 08:46 Dose: 145 mg Glipizide (Glucotrol) 10 mg PO BID [facility] Last Admin: 12/14/17 08:45 Dose: 10 mg Ceftriaxone Sodium 1 gm/ (Sodium Chloride) 100 mls @ 100 mls/hr IVPB DAILY [facility] PRN Reason: Protocol Last Admin: 12/13/17 09:32 Dose: 100 mls/hr Insulin Detemir (Levemir) 20 units SC [facility] Last Admin: 12/13/17 21:43 Dose: 20 u Insulin Human Regular (Humulin R) 0 units SC [facility] PRN Reason: Protocol Last Admin: 12/14/17 06:54 Dose: Not Given Lactulose (Enulose) 10 gm PO DAILY PRN PRN Reason: Constipation Last Admin: 12/12/17 22:42 Dose: 10 gm Lorazepam (Ativan) 1 mg PO Q8 PRN PRN Reason: Anxiety Metformin HCl (Glucophage) 1,000 mg PO BID [facility] Last Admin: 12/14/17 08:43 Dose: 1,000 mg Morphine Sulfate (Morphine) 2 mg IV Q4 PRN PRN Reason: Pain, severe (8-10) Last Admin: 12/14/17 08:07 Dose: 2 mg [id number] Ethyl Esters (Lovaza) 2 gm PO BID [facility] Last Admin: 12/14/17 08:45 Dose: 2 gm Pantoprazole Sodium (Protonix Inj) 40 mg IVP DAILY [facility] Last Admin: 12/14/17 08:45 Dose: 40 mg Sitagliptin Phosphate (Januvia) 100 mg PO DAILY [facility] Last Admin: 12/14/17 08:45 Dose: 100 mg - Labs Labs: 12/12/17 04:35 12/13/17 04:50 - Constitutional Appears: Chronically Ill - Head Exam Head Exam: ATRAUMATIC, NORMAL INSPECTION, NORMOCEPHALIC - Eye Exam Eye Exam: EOMI, Normal appearance, PERRL Pupil Exam: NORMAL ACCOMODATION, PERRL - ENT Exam ENT Exam: Mucous Membranes Moist, Normal Exam - Neck Exam Neck Exam: Full ROM, Normal Inspection. absent: Lymphadenopathy - Respiratory Exam Respiratory Exam: Clear to Ausculation Bilateral, NORMAL BREATHING PATTERN - Cardiovascular Exam Cardiovascular Exam: REGULAR RHYTHM, +S1, +S2. absent: Murmur - GI/Abdominal Exam GI & Abdominal Exam: Soft, Normal Bowel Sounds. absent: Tenderness - Rectal Exam Rectal Exam: NORMAL INSPECTION - Extremities Exam Extremities Exam: Full ROM, Normal Capillary Refill, Normal Inspection. absent : Joint Swelling, Pedal Edema - Back Exam Back Exam: NORMAL INSPECTION - Neurological Exam Neurological Exam: Alert, Awake, CN II-XII Intact, Normal Gait, Oriented x3 - Psychiatric Exam Psychiatric exam: Normal Affect, Normal Mood - Skin Skin Exam: Dry, Intact, Normal Color, Warm Assessment and Plan (1) Hypertension Status: Acute (2) Dehydration Status: Acute (3) Hyperglycemia Status: Acute (4) Uncontrolled diabetes mellitus with hyperglycemia Status: Acute (5) Disc disorder Assessment & Plan: AWAIT PAIN MANAGEMENT EVAL RE-APPROPRIATE MEDS TO PREVENT HALLUCINATIONS AND DRUG WITHDRAWAL ADD NPH INSULIN TID TO BETTER CONTROL S.GLU Status: Acute (6) Lumbar back pain with radiculopathy affecting right lower extremity Status: Acute (7) Near syncope Status: Acute (8) Poor compliance Status: Acute (9) Hyperlipidemia Status: Acute (10) Hyperlipidemia associated with type 2 diabetes mellitus Status: Acute (11) Fatty liver Status: Acute (12) Hallucination Status: Acute
[2017-12-14] MEDS: Insulin Lispro (humaLOG) 100 Units/ml Inj SC SCH ×4 (11:23→21:22)
[2017-12-14] MEDS ORDERED: Insulin Detemir 100 Units/ml Inj SC SCH (22:00)
--- NOTE | 2017-12-14 22:18 | CP.PCM.CON ---
History of Present Illness - History of Present Illness History of Present Illness: consult requested as patient is experiencing visual hallucinations pt is 37 ys old male, denied any previous formal psychiatric diagnosis or treatment, pt reported being placed by PMD on cymbalta, lyrica and percocet for at least past four years de to back pain pt reported that since admission to the hospital about five days ago he has been experiencing hallucinations including visual hallucinations of animals in the room, he reported that he experiences them mainly when attempting to go to sleep, at times also whispering voices which he cannot identify the content of, denied command hallucinations, denied suicidal or homicidal ideation, denied any changes in sleep or appetite, denied mood symptoms denied any substance or alcohol use reported taking pain medications as prescribed by PMD Past Patient History - Infectious Disease Hx of Infectious Diseases: None - Past Medical History & Family History Past Medical History?: Yes - Past Social History Smoking Status: Never Smoked - CARDIAC Hx Cardiac Disorders: Yes - PULMONARY Hx Respiratory Disorders: No - NEUROLOGICAL Hx Neurological Disorder: No Other/Comment: Sciatica - HEENT Hx HEENT Problems: No - RENAL Hx Chronic Kidney Disease: No - ENDOCRINE/METABOLIC Hx Endocrine Disorders: Yes Hx Diabetes Mellitus Type 2: Yes - HEMATOLOGICAL/ONCOLOGICAL Hx AIDS: No Hx Human Immunodeficiency Virus (HIV): No - INTEGUMENTARY Hx Dermatological Problems: No - MUSCULOSKELETAL/RHEUMATOLOGICAL Hx Arthritis: Yes Hx Falls: No - GASTROINTESTINAL Hx Gastrointestinal Disorders: No - GENITOURINARY/GYNECOLOGICAL Hx Genitourinary Disorders: No - PSYCHIATRIC Hx Anxiety: No Hx Bipolar Disorder: No Hx Depression: No Hx Post Traumatic Stress Disorder: No Hx Schizophrenia: No Hx Substance Use: Yes - SURGICAL HISTORY Hx Surgeries: Yes Other/Comment: Pilonidal cyst removal - ANESTHESIA Hx Anesthesia: Yes Hx Anesthesia Reactions: No Hx Malignant Hyperthermia: No Meds Home Medications: Home Medication List Medication Instructions Recorded Confirmed Type Amoxicillin/Clavulanate [Augmentin 1 tab PO BID #10 tab 12/12/17 Rx 875 MG-125 MG] Allergies/Adverse Reactions: Allergies Allergy/AdvReac Type Severity Reaction Status Date / Time No Known Allergies Allergy Verified 12/11/17 13:19 - Medications Medications: Current Medications Atorvastatin Calcium (Lipitor) 40 mg PO DAILY [facility] Last Admin: 12/14/17 08:45 Dose: 40 mg Clonidine HCl (Catapres) 0.2 mg PO Q8 PRN PRN Reason: hyperten Last Admin: 12/14/17 12:17 Dose: 0.2 mg Duloxetine HCl (Cymbalta) 60 mg PO HS [facility] Last Admin: 12/14/17 21:16 Dose: 60 mg Enoxaparin Sodium (Lovenox) 40 mg SC DAILY [facility] PRN Reason: Protocol Last Admin: 12/14/17 08:45 Dose: 40 mg Fenofibrate (Tricor) 145 mg PO DAILY [facility] Last Admin: 12/14/17 08:46 Dose: 145 mg Ceftriaxone Sodium 1 gm/ (Sodium Chloride) 100 mls @ 100 mls/hr IVPB DAILY [facility] PRN Reason: Protocol Last Admin: 12/14/17 16:30 Dose: 100 mls/hr Insulin Detemir (Levemir) 26 units SC HS [facility] Last Admin: 12/14/17 21:24 Dose: 26 units Insulin Human Lispro (Humalog) 10 units SC ACTID [facility] Last Admin: 12/14/17 16:27 Dose: 10 units Insulin Human Lispro (Humalog) 0 units SC [facility] Last Admin: 12/14/17 21:22 Dose: Not Given Lactulose (Enulose) 10 gm PO DAILY PRN PRN Reason: Constipation Last Admin: 12/12/17 22:42 Dose: 10 gm Lorazepam (Ativan) 1 mg PO Q8 PRN PRN Reason: Anxiety Morphine Sulfate (Morphine) 2 mg IV Q4 PRN PRN Reason: Pain, severe (8-10) Last Admin: 12/14/17 21:13 Dose: 2 mg [id number] Ethyl Esters (Lovaza) 2 gm PO BID [facility] Last Admin: 12/14/17 16:28 Dose: 2 gm Pantoprazole Sodium (Protonix Inj) 40 mg IVP DAILY [facility] Last Admin: 12/14/17 08:45 Dose: 40 mg Sitagliptin Phosphate (Januvia) 100 mg PO DAILY [facility] Last Admin: 12/14/17 08:45 Dose: 100 mg Results - Vital Signs Recent Vital Signs: Last Vital Signs Temp 97.9 F 12/14/17 19:47 Pulse 71 12/14/17 19:47 Resp 16 12/14/17 19:47 BP 133/90 12/14/17 19:47 Pulse Ox 96 12/14/17 19:47 - Labs Result Diagrams: 12/12/17 04:35 12/13/17 04:50 Labs: Laboratory Results - last 24 hr 12/14/17 12/14/17 12/14/17 05:46 10:59 15:56 POC Glucose (mg/dL) 245 H 271 H 209 H Assessment & Plan - Assessment and Plan (Free Text) Assessment: opiate induced psychotic disorder with hallucinations rule out /hypnagogic hallucinations Plan: pt is alert awake ox3 deneid mood symptoms denied suicidal or homicidal ideation start risperidone 0.5 mg pt at current mental status not danger to self or others, psychiatriclay cleared for discharge upon medical clearence
[2017-12-15] MEDS: Morphine 4 MG/ML VIAL IV PRN ×4 (04:46→21:20)
[2017-12-15 06:49] LABS: BASO # 0.1 K/uL (0.0-0.2); BASO % 0.9 % (0.0-2.0); EOS # 0.1 K/uL (0.0-0.7); EOS % 0.9 % (0.0-4.0); HEMOGLOBIN 13.4 g/dL (12.0-18.0); LYMPH # 3.1 K/uL (1.0-4.3); LYMPH % 41.7 % (20.0-40.0); MEAN CELL VOLUME 88.7 fl (80.0-94.0); MEAN CORPUSCULAR HEMOGLOBIN 32.4 pg (27.0-31.0); MEAN CORPUSCULAR HGB CONC 36.5 g/dL (33.0-37.0); MEAN PLATELET VOLUME 12.7 fl (7.2-11.7); MONO # 0.3 K/uL (0.0-0.8); NEUT # 3.9 K/uL (1.8-7.0); NEUT % 52.5 % (50.0-75.0); NRBC % 0.2 % (0.0-0.0); RBC 4.15 Mil/uL (4.40-5.90); RED CELL DISTRIBUTION WIDTH 12.7 % (11.5-14.5); WHITE BLOOD COUNT 7.5 K/uL (4.8-10.8)
[2017-12-15 07:01] LABS: ALB/GLOB RATIO 0.8 (1.0-2.1); ALBUMIN 3.8 g/dL (3.5-5.0); ALT/SGPT 119 U/L (21-72); AST/SGOT 92 U/L (17-59); BLOOD UREA NITROGEN 9 mg/dl (9-20); GFR AFRICAN-AMERICAN > 60; GFR NON-AFRICAN AMERICAN > 60
[2017-12-15] MEDS: Omega-3-Acid Ethyl Esters 1 GM Cap PO SCH ×2 (08:25→17:20)
[2017-12-15] MEDS: Insulin Lispro (humaLOG) 100 Units/ml Inj SC SCH ×7 (08:28→21:36)
[2017-12-15] MEDS: Enoxaparin 40 mg Syringe SC SCH (08:30)
--- NOTE | 2017-12-15 08:33 | PN ---
ENDOCRINOLOGY FOLLOWUP NOTE DATE: 12/14/2017 LOCATION: In room . SUBJECTIVE: This is a 37-year-old male with recent uncontrolled type 2 insulin requiring diabetes presenting with marked hyperglycemic accelerations and dehydration and is now being followed closely for metabolic management. His glycemic levels are fluctuating today and have ranged from 197 to 245 and 271 mg/dL. His hemoglobin A1c was reported as 13.8%, which is extremely elevated and indicative of suboptimal metabolic control with diabetic condition even prior to this admission. LABORATORY DATA: His latest chemistries showed a BUN of 13, sodium 141, potassium 4, chloride 99, CO2 of 27, glucose 264, and creatinine 0.6. ASSESSMENT AND PLAN: So at this time, we will modify once again his basal insulin and increase the Levemir to 24 units subcutaneously at bedtime daily to start tonight. We will continue the triple oral hypoglycemic drug therapy given in combination to optimize metabolic control. We will continue the metformin given as 1 g t.i.d. with Januvia at 100 mg once daily and glipizide at 10 mg b.i.d. as ordered. We will obtain serial chemistries and supplement accordingly as needed. We will also continue the fenofibrate given as 145 mg at bedtime with omega-3 fatty acids given as 2 g b.i.d. after meals as ordered. He has marked dyslipidemia related to suboptimal metabolic control of his diabetic condition. So, at this time, we will obtain serial chemistries and supplement accordingly as needed. We will follow. Lolis Goss MD
--- NOTE | 2017-12-15 12:26 | CARD ---
APPROVED REPORT EKG Measurement Heart [id number] <Conclusion> Normal sinus rhythm Possible Left atrial enlargement Borderline ECG
--- NOTE | 2017-12-15 13:20 | CP.PCM.PN ---
Subjective - Date & Time of Evaluation Date of Evaluation: 12/15/17 Time of Evaluation: 13:21 - Subjective Subjective: C/O HALLUCINATIONS SEEN BY PSYCH AND PAIN MANAGEMENT Objective - Vital Signs/Intake and Output Vital Signs (last 24 hours): Temp Pulse Resp BP Pulse Ox 98.1 F 92 H 18 121/77 95 12/15/17 12:01 12/15/17 12:01 12/15/17 12:01 12/15/17 12:01 12/15/17 12:01 - Medications Medications: Current Medications Atorvastatin Calcium (Lipitor) 40 mg PO DAILY [facility] Last Admin: 12/15/17 08:30 Dose: 40 mg Clonidine HCl (Catapres) 0.2 mg PO Q8 PRN PRN Reason: hyperten Last Admin: 12/14/17 12:17 Dose: 0.2 mg Duloxetine HCl (Cymbalta) 60 mg PO HS [facility] Last Admin: 12/14/17 21:16 Dose: 60 mg Enoxaparin Sodium (Lovenox) 40 mg SC DAILY [facility] PRN Reason: Protocol Last Admin: 12/15/17 08:30 Dose: 40 mg Fenofibrate (Tricor) 145 mg PO DAILY [facility] Last Admin: 12/15/17 08:25 Dose: 145 mg Ceftriaxone Sodium 1 gm/ (Sodium Chloride) 100 mls @ 100 mls/hr IVPB DAILY [facility] PRN Reason: Protocol Last Admin: 12/15/17 08:31 Dose: 100 mls/hr Insulin Detemir (Levemir) 26 units SC HS [facility] Last Admin: 12/14/17 21:24 Dose: 26 units Insulin Human Lispro (Humalog) 10 units SC ACTID [facility] Last Admin: 12/15/17 08:28 Dose: 10 units Insulin Human Lispro (Humalog) 0 units SC ACHS [facility] Last Admin: 12/15/17 08:30 Dose: Not Given Lactulose (Enulose) 10 gm PO DAILY PRN PRN Reason: Constipation Last Admin: 12/12/17 22:42 Dose: 10 gm Lorazepam (Ativan) 1 mg PO Q8 PRN PRN Reason: Anxiety Last Admin: 12/14/17 23:12 Dose: 1 mg Morphine Sulfate (Morphine) 2 mg IV Q4 PRN PRN Reason: Pain, severe (8-10) Last Admin: 12/15/17 10:26 Dose: 2 mg Kantc-1-Tpsw Ethyl Esters (Lovaza) 2 gm PO BID [facility] Last Admin: 12/15/17 08:25 Dose: 2 gm Pantoprazole Sodium (Protonix Inj) 40 mg IVP DAILY [facility] Last Admin: 12/15/17 08:30 Dose: 40 mg Risperidone (Risperdal Tab) 0.5 mg PO DAILY [facility] Last Admin: 12/15/17 10:26 Dose: 0.5 mg Sitagliptin Phosphate (Januvia) 100 mg PO DAILY [facility] Last Admin: 12/15/17 08:24 Dose: 100 mg - Labs Labs: 12/15/17 05:30 12/15/17 05:30 - Constitutional Appears: Chronically Ill - Head Exam Head Exam: ATRAUMATIC, NORMAL INSPECTION, NORMOCEPHALIC - Eye Exam Eye Exam: EOMI, Normal appearance, PERRL Pupil Exam: NORMAL ACCOMODATION, PERRL - ENT Exam ENT Exam: Mucous Membranes Moist, Normal Exam - Neck Exam Neck Exam: Full ROM, Normal Inspection. absent: Lymphadenopathy - Respiratory Exam Respiratory Exam: Clear to Ausculation Bilateral, NORMAL BREATHING PATTERN - Cardiovascular Exam Cardiovascular Exam: REGULAR RHYTHM, +S1, +S2. absent: Murmur - GI/Abdominal Exam GI & Abdominal Exam: Soft, Normal Bowel Sounds. absent: Tenderness - Rectal Exam Rectal Exam: NORMAL INSPECTION - Extremities Exam Extremities Exam: Full ROM, Normal Capillary Refill, Normal Inspection. absent : Joint Swelling, Pedal Edema - Back Exam Back Exam: NORMAL INSPECTION - Neurological Exam Neurological Exam: Alert, Awake, CN II-XII Intact, Normal Gait, Oriented x3 - Psychiatric Exam Psychiatric exam: Normal Affect, Normal Mood - Skin Skin Exam: Dry, Intact, Normal Color, Warm Assessment and Plan (1) Hypertension Status: Acute (2) Dehydration Status: Acute (3) Hyperglycemia Status: Acute (4) Uncontrolled diabetes mellitus with hyperglycemia Status: Acute (5) Disc disorder Status: Acute (6) Lumbar back pain with radiculopathy affecting right lower extremity Status: Acute (7) Near syncope Status: Acute (8) Poor compliance Status: Acute (9) Hyperlipidemia Status: Acute (10) Hyperlipidemia associated with type 2 diabetes mellitus Status: Acute (11) Fatty liver Status: Acute (12) Hallucination Status: Acute - Assessment and Plan (Free Text) Plan: WILL GIVE ATIVAN BID FOR HALLUCINATIONS D/C IN AM AND FOLLOW UP WITH OUT PT PSYCH IF HALLUCINATIONS PERSIST
[2017-12-15 16:06] VITALS: O2SAT 97
[2017-12-15] MEDS ORDERED: Insulin Detemir 100 Units/ml Inj SC SCH (22:00)
[2017-12-16] MEDS: Morphine 4 MG/ML VIAL IV PRN ×3 (01:40→09:59)
[2017-12-16] MEDS: Insulin Lispro (humaLOG) 100 Units/ml Inj SC SCH ×3 (08:00→11:37)
[2017-12-16 08:07] VITALS: BP 144/86; PULSE 80; RESP 20; TEMP 98.2
[2017-12-16] MEDS: Omega-3-Acid Ethyl Esters 1 GM Cap PO SCH (08:21)
[2017-12-16] MEDS: Enoxaparin 40 mg Syringe SC SCH (08:21)
--- NOTE | 2017-12-16 11:55 | CP.PCM.DIS ---
Provider - Provider Date of Admission: 12/12/17 15:55 Attending physician: Mo Canas MD Time Spent in preparation of Discharge (in minutes): 30 Diagnosis - Discharge Diagnosis (1) Hypertension Status: Acute (2) Dehydration Status: Acute (3) Hyperglycemia Status: Acute (4) Uncontrolled diabetes mellitus with hyperglycemia Status: Acute (5) Disc disorder Status: Acute (6) Lumbar back pain with radiculopathy affecting right lower extremity Status: Acute (7) Near syncope Status: Acute (8) Poor compliance Status: Acute (9) Hyperlipidemia Status: Acute (10) Hyperlipidemia associated with type 2 diabetes mellitus Status: Acute (11) Fatty liver Status: Acute (12) Hallucination Status: Acute Hospital Course - Lab Results Lab Results: Micro Results 12/11/17 20:54 Blood Blood Culture - Preliminary NO GROWTH AFTER 4 DAYS 12/11/17 15:15 Blood Blood Culture - Preliminary NO GROWTH AFTER 4 DAYS Most Recent Lab Values WBC 7.5 K/uL (4.8-10.8) 12/15/17 05:30 RBC 4.15 Mil/uL (4.40-5.90) L 12/15/17 05:30 Hgb 13.4 g/dL (12.0-18.0) 12/15/17 05:30 Hct 36.9 % (35.0-51.0) 12/15/17 05:30 MCV 88.7 fl (80.0-94.0) 12/15/17 05:30 MCH 32.4 pg (27.0-31.0) H 12/15/17 05:30 MCHC 36.5 g/dL (33.0-37.0) 12/15/17 05:30 RDW 12.7 % (11.5-14.5) 12/15/17 05:30 Plt Count 97 K/uL (130-400) L 12/15/17 05:30 MPV 12.7 fl (7.2-11.7) H 12/15/17 05:30 Neut % (Auto) 52.5 % (50.0-75.0) 12/15/17 05:30 Lymph % (Auto) 41.7 % (20.0-40.0) H 12/15/17 05:30 Cocke % (Auto) 4.0 % (0.0-10.0) 12/15/17 05:30 Eos % (Auto) 0.9 % (0.0-4.0) 12/15/17 05:30 Baso % (Auto) 0.9 % (0.0-2.0) 12/15/17 05:30 Neut # (Auto) 3.9 K/uL (1.8-7.0) 12/15/17 05:30 Lymph # (Auto) 3.1 K/uL (1.0-4.3) 12/15/17 05:30 Cocke # (Auto) 0.3 K/uL (0.0-0.8) 12/15/17 05:30 Eos # (Auto) 0.1 K/uL (0.0-0.7) 12/15/17 05:30 Baso # (Auto) 0.1 K/uL (0.0-0.2) 12/15/17 05:30 pO2 30 mm/Hg (30-55) 12/11/17 14:29 VBG pH 7.36 (7.32-7.43) 12/11/17 14:29 VBG pCO2 60 mmHg (40-60) 12/11/17 14:29 VBG HCO3 28.8 mmol/L 12/11/17 14:29 VBG Total CO2 35.7 mmol/L (22-28) H 12/11/17 14:29 VBG O2 Sat (Calc) 51.2 % (40-65) 12/11/17 14:29 VBG Base Excess 6.5 mmol/L (0.0-2.0) H 12/11/17 14:29 VBG Potassium 4.6 mmol/L (3.6-5.2) 12/11/17 14:29 Sodium 134.0 mmol/L (132-148) 12/11/17 14:29 Chloride 95.0 mmol/L (98-107) L 12/11/17 14:29 Glucose 506 mg/dL (75-110) H* D 12/11/17 14:29 Lactate 2.1 mmol/L (0.7-2.1) 12/11/17 14:29 FiO2 21.0 % 12/11/17 14:29 Blood Gas Comments Lac=2.1 12/11/17 14:29 Crit Value Called To jeanette Gagnon 12/11/17 14:29 Crit Value Called By 22 12/11/17 14:29 Crit Value Read Back Y 12/11/17 14:29 Blood Gas Notified Time 1435 12/11/17 14:29 Sodium 137 mmol/l (132-148) 12/15/17 05:30 Potassium 4.3 MMOL/L (3.6-5.0) 12/15/17 05:30 Chloride 97 mmol/L (98-107) L 12/15/17 05:30 Carbon Dioxide 25 mmol/L (22-30) 12/15/17 05:30 Anion Gap 19 (10-20) 12/15/17 05:30 BUN 9 mg/dl (9-20) 12/15/17 05:30 Creatinine 0.6 mg/dl (0.8-1.5) L 12/15/17 05:30 Est GFR ( Amer) > 60 12/15/17 05:30 Est GFR (Non-Af Amer) > 60 12/15/17 05:30 POC Glucose (mg/dL) 300 mg/dL (65-110) H 12/16/17 10:49 Random Glucose 291 mg/dL (75-110) H 12/15/17 05:30 Hemoglobin A1c 13.8 % (4.2-6.5) H 12/13/17 04:50 Calcium 9.0 mg/dL (8.4-10.2) 12/15/17 05:30 Magnesium 1.5 MG/DL (1.6-2.3) L 12/11/17 14:15 Total Bilirubin 0.6 mg/dl (0.2-1.3) 12/15/17 05:30 AST 92 U/L (17-59) H 12/15/17 05:30 ALT 119 U/L (21-72) H 12/15/17 05:30 Alkaline Phosphatase 114 U/L (38-126) 12/15/17 05:30 Troponin I < 0.0120 ng/mL (0.00-0.120) 12/11/17 14:15 Total Protein 8.2 G/DL (6.3-8.2) 12/15/17 05:30 Albumin 3.8 g/dL (3.5-5.0) 12/15/17 05:30 Globulin 4.4 gm/dL (2.2-3.9) H 12/15/17 05:30 Albumin/Globulin Ratio 0.8 (1.0-2.1) L 12/15/17 05:30 Triglycerides 3508 mg/DL (0-149) H 12/13/17 04:50 Cholesterol 320 mg/dL (0-199) H 12/13/17 04:50 LDL Cholesterol Direct < 30 mg/dL (0-129) 12/13/17 04:50 HDL Cholesterol 20 MG/DL (30-70) L 12/13/17 04:50 TSH 3rd Generation 1.04 mIU/ML (0.46-4.68) 12/13/17 04:50 Venous Blood Potassium 4.6 mmol/L (3.6-5.2) 12/11/17 14:29 - Hospital Course Hospital Course: HALLUCINATIONS IMPROVED WITH ATIVAN THERAPY S.GLU BETTER CONTROLLED NO NEW CLINICAL FINDINGS Discharge Exam - Head Exam Head Exam: ATRAUMATIC, NORMAL INSPECTION, NORMOCEPHALIC - Eye Exam Eye Exam: EOMI, Normal appearance, PERRL Pupil Exam: NORMAL ACCOMODATION, PERRL - GI/Abdominal Exam GI & Abdominal Exam: Normal Bowel Sounds - Rectal Exam Rectal Exam: NORMAL INSPECTION - Neurological Exam Neurological exam: Alert, CN II-XII Intact, Normal Gait, Oriented x3, Reflexes Normal - Psychiatric Exam Psychiatric exam: Normal Affect, Normal Mood - Skin Skin Exam: Dry, Intact, Normal Color, Warm Discharge Plan - Discharge Medications Prescriptions: Amoxicillin/Clavulanate [Augmentin 875 MG-125 MG] 1 tab PO BID #10 tab - Follow Up Plan Condition: FAIR Disposition: HOME/ ROUTINE Patient education suggested?: Yes Instructions: Type 2 Diabetes, High Blood Pressure (DC), Hyperglycemia, Adult ( DC) Additional Instructions: discharge today follow up with 1 week Referrals: Mo Canas MD [Family Provider] -
--- NOTE | 2017-12-16 13:40 | PN ---
DATE: 12/16/2017 ENDO FOLLOWUP NOTE LOCATION: Room 416. SUBJECTIVE: This is a 37-year-old male with recent uncontrolled type 2 insulin-requiring diabetes now with persistent hyperglycemic accelerations despite insulin dose adjustments undertaken thereof. He also has anxiety and depressive episodes with intermittent auditory hallucinations as noted thereof and is being followed closely by psychiatry as noted. His glycemic levels today overnight are still elevated with glucose levels ranging from 311 mg/dL to 324 mg/dL. The latest chemistry showed BUN of 9, sodium of 137, potassium of 4.3, chloride of 97, CO2 of 25, glucose of 291, and creatinine of 0.6. So that this time, we will modify once again his basal and bolus insulin regimen and increase the Levemir given as basal insulin to 40 Units subcu at bedtime daily to start tonight. We will continue the Humalog given as Units subcu 3 times a day before meals as modified last night. We will also continue the low-dose correction scale Humulin insulin for glucose level above 300. We will obtain serial chemistries and supplement accordingly as needed. We will follow. Lolis Goss MD
[2017-12-16] MEDS ORDERED: Insulin Detemir 100 Units/ml Inj SC SCH (22:00)
--- NOTE | 2017-12-18 08:29 | PN ---
DATE: 12/15/2017 ENDOCRINOLOGY FOLLOWUP NOTE LOCATION: In room number 416. SUBJECTIVE: This is a 37-year-old male with recent uncontrolled type 2 insulin-requiring diabetes now being followed closely for metabolic management. His glycemic levels are fluctuating but much improved at this time and overnight the glucose levels have ranged from 170 to 235 mg/dL. LABORATORY DATA: His latest chemistry showed a BUN of 9, sodium of 137, potassium of 4.3, chloride of 97, CO2 of 25, glucose of 291 and creatinine of 0.6. ASSESSMENT AND PLAN: So at this time, we will modify once again his basal and bolus insulin regimen as the patient actually agreed to go back on his Humalog insulin, which was actually discontinued initially by his primary physician. So we will actually increase his Humalog to 14 units subcutaneous t.i.d. before meals to start today as ordered. We will increase the basal insulin to Levemir given as 34 units subcutaneous at bedtime daily as given and is also be started tonight as ordered. We will obtain serial chemistries and supplement accordingly as needed. We will also continue the IV hydration with serial chemistries accordingly to optimize metabolic control. We will follow. Lolis Goss MD
== END 2017-12-16 12:00 | disposition home or self-care (01) | DRG 294 ==
LOC: H.ER 13:14 → H.ERHOLD 16:14 → H.TEL 18:55 → OBSVTOIN 12-12 15:55
PROVIDERS: ADMIT Internal Medicine Pulmonary Disease; ATTEND Internal Medicine Pulmonary Disease
DX: E11.65 Type 2 diabetes mellitus with hyperglycemia (principal); E86.0 Dehydration; E78.00 Pure hypercholesterolemia, unspecified; E78.5 Hyperlipidemia, unspecified; F11.151 Opioid abuse with opioid-induced psychotic disorder with hallucinations; F41.9 Anxiety disorder, unspecified; G47.00 Insomnia, unspecified; I10 Essential (primary) hypertension; K59.00 Constipation, unspecified; M54.16 Radiculopathy, lumbar region; Z79.4 Long term (current) use of insulin; Z82.49 Family history of ischemic heart disease and other diseases of the circulatory system; Z83.3 Family history of diabetes mellitus; Z91.19 Patient's noncompliance with other medical treatment and regimen; M19.90 Unspecified osteoarthritis, unspecified site; M51.9 Unspecified thoracic, thoracolumbar and lumbosacral intervertebral disc disorder; M54.10 Radiculopathy, site unspecified; M54.30 Sciatica, unspecified side; Z79.84 Long term (current) use of oral hypoglycemic drugs

== ENCOUNTER 2018-01-24 14:55 | Inpatient (IN) | payer OTHER ==
[2018-01-24] MEDS ORDERED: Sodium Chloride 0.9% 1,000 ML IV STA ×2 (15:24→16:05)
[2018-01-24] MEDS ORDERED: Insulin Regular 100 units/ml IVP ONE (15:24)
[2018-01-24] MEDS ORDERED: Insulin Regular 100 units/ml ONE (15:39)
[2018-01-24 15:52] LABS: BASO # 0.1 K/uL (0.0-0.2); BASO % 0.7 % (0.0-2.0); EOS % 0.1 % (0.0-4.0); HEMOGLOBIN 15.9 g/dL (12.0-18.0); MEAN CELL VOLUME 90.4 fl (80.0-94.0); MEAN CORPUSCULAR HEMOGLOBIN 29.8 pg (27.0-31.0); MEAN CORPUSCULAR HGB CONC 32.9 g/dL (33.0-37.0); MEAN PLATELET VOLUME 12.5 fl (7.2-11.7); MONO # 0.9 K/uL (0.0-0.8); MONO % 6.1 % (0.0-10.0); NEUT % 73.1 % (50.0-75.0); NRBC % 0.1 % (0.0-0.0); RBC 5.33 Mil/uL (4.40-5.90); RED CELL DISTRIBUTION WIDTH 13.3 % (11.5-14.5); WHITE BLOOD COUNT 15.1 K/uL (4.8-10.8)
--- NOTE | 2018-01-24 16:28 | ED PDOC ---
HPI: Abdomen Time Seen by Provider: 01/24/18 15:23 Chief Complaint (Nursing): GI Problem Chief Complaint (Provider): GI Problem History Per: Patient History/Exam Limitations: no limitations Onset/Duration Of Symptoms: Days (x3) Current Symptoms Are (Timing): Still Present Additional Complaint(s): 37 y/o male with a PMHx of insulin dependent diabetes and HTN complaining of crampy abdominal pain associated with multiple episodes of non-bloody vomiting and inability to keep fluids down x3 days. Patient denies fever, rash, or syncope. He states he has been in DKA before and his current symptoms feels similar. PMD: Dr. Canas Past Medical History Reviewed: Historical Data, Nursing Documentation, Vital Signs Vital Signs: Last Vital Signs Temp 97.6 F 01/24/18 15:05 Pulse 120 H 01/24/18 15:05 Resp 20 01/24/18 15:05 BP 148/92 H 01/24/18 15:05 Pulse Ox 97 01/24/18 16:33 - Medical History PMH: Arthritis, Back Problems (SCIATICA), Diabetes (type II), HTN, Hypercholesterolemia Denies: Anxiety, Bipolar Disorder, Depression, HIV, Personality Disorder, Post Traumatic Stress Disorder, Chronic Kidney Disease, Schizophrenia - Surgical History Surgical History: Back Surgery - Family History Family History: States: Unknown Family Hx - Immunization History Hx Tetanus Toxoid Vaccination: No Hx Influenza Vaccination: No Hx Pneumococcal Vaccination: No - Home Medications Home Medications: Ambulatory Orders Medication Instructions Recorded oxyCODONE/Acetaminophen [Percocet 5 - 325 mg PO Q6 10/03/17 5/325 mg Tab] Clonidine HCl [Catapres] 0.2 mg PO Q8 PRN 12/11/17 Cyclobenzaprine [Flexeril] 10 mg PO HS 12/11/17 DULoxetine [Cymbalta] 60 mg PO HS 12/11/17 GlipiZIDE [Glucotrol] 10 mg PO BID 12/11/17 MetFORMIN [glucoPHAGE] 1,000 mg PO BID 12/11/17 Pregabalin [Lyrica] 100 mg PO Q8 12/11/17 Amoxicillin/Clavulanate [Augmentin 1 tab PO BID #10 tab 12/12/17 875 MG-125 MG] LORazepam [Ativan] 1 mg PO BID #60 tab 12/16/17 SITagliptin [Januvia] 100 mg PO DAILY #30 tab 12/16/17 - Allergies Allergies/Adverse Reactions: Allergies Allergy/AdvReac Type Severity Reaction Status Date / Time No Known Allergies Allergy Verified 01/24/18 15:05 Review of Systems ROS Statement: Except As Marked, All Systems Reviewed And Found Negative Constitutional: Negative for: Fever Gastrointestinal: Positive for: Vomiting, Abdominal Pain Skin: Negative for: Rash Neurological: Positive for: Dizziness Physical Exam - Reviewed Nursing Documentation Reviewed: Yes Vital Signs Reviewed: Yes - Physical Exam Appears: Positive for: Non-toxic, No Acute Distress Head Exam: Positive for: ATRAUMATIC, NORMAL INSPECTION, NORMOCEPHALIC Skin: Positive for: Normal Color, Warm, Dry Eye Exam: Positive for: EOMI, Normal appearance, PERRL ENT: Positive for: Normal ENT Inspection Neck: Positive for: Normal, Painless ROM, Supple Cardiovascular/Chest: Positive for: Tachycardia Respiratory: Positive for: Normal Breath Sounds. Negative for: Respiratory Distress Gastrointestinal/Abdominal: Positive for: Tenderness (diffuse, mild) Back: Positive for: Normal Inspection. Negative for: L CVA Tenderness, R CVA Tenderness, Vertebral Tenderness Extremity: Positive for: Normal ROM. Negative for: Pedal Edema, Deformity Neurologic/Psych: Positive for: Alert, Oriented. Negative for: Motor/Sensory Deficits - Laboratory Results Result Diagrams: 01/24/18 15:42 01/24/18 15:42 - ECG O2 Sat by Pulse Oximetry: 97 (RA) Pulse Ox Interpretation: Normal - Radiology X-Ray: Interpreted by Me X-Ray Interpretation: No Acute Disease - Critical Care Total Time (In Min): 45 Medical Decision Making Medical Decision Makin:25 Plan: -Initiate workup for hyperglycemia, r/o DKA -IV fluid bolus, low dose insulin therapy, and anti-emetic started -Check pH and anion gap to r/o DKA labs reveal evidence of DKA Insulin drip initiated IVF continued Dr Parra ICU and PMD Dr Canas aware 445pm Scribe Attestation: Documented by Rickey Grissom, acting as a scribe for Elias Leo III, DO. Provider Scribe Attestation: All medical record entries made by the Scribe were at my direction and personally dictated by me. I have reviewed the chart and agree that the record accurately reflects my personal performance of the history, physical exam, medical decision making, and the department course for this patient. I have also personally directed, reviewed, and agree with the discharge instructions and disposition. Disposition - Clinical Impression Clinical Impression: DKA (diabetic ketoacidoses) - Patient ED Disposition Is Patient to be Admitted: Yes - Disposition Disposition Time: 16:45 Condition: FAIR Forms: [employer] ([place]) - Pt Status Changed To: Hospital Disposition Of: Inpatient - Admit Certification Admit to Inpatient:: After my assessment, the patient will require hospitalization for at least two midnights. This is because of the severity of symptoms shown, intensity of services needed, and/or the medical risk in this patient being treated as an outpatient. - POA Present On Arrival: Poor Glycemic Control
[2018-01-24] MEDS ORDERED: Dextrose 50% SYRINGE Inj (50 ml) IV PRN (16:29)
[2018-01-24] MEDS ORDERED: Glucagon Recombinant 1 mg Inj IM PRN (16:29)
[2018-01-24 16:32] LABS: ALB/GLOB RATIO 0.8 (1.0-2.1); ALBUMIN 4.9 g/dL (3.5-5.0); ALT/SGPT 125 U/L (21-72); AST/SGOT 105 U/L (17-59); BLOOD UREA NITROGEN 16 mg/dl (9-20); CALCIUM 9.9 mg/dL (8.4-10.2); GFR AFRICAN-AMERICAN > 60; GFR NON-AFRICAN AMERICAN > 60
[2018-01-24 16:36] LABS: VENOUS BLOOD GAS BASE EXCESS -15.6 mmol/L (0.0-2.0); VENOUS BLOOD GAS PCO2 24 mmHg (40-60); VENOUS BLOOD GAS PO2 66 mm/Hg (30-55); VENOUS BLOOD PH 7.23 (7.32-7.43)
--- NOTE | 2018-01-24 17:10 | RAD ---
HISTORY: DKA COMPARISON: 12/12/2017 FINDINGS: LUNGS: No active pulmonary disease. PLEURA: No significant pleural effusion identified, no pneumothorax apparent. CARDIOVASCULAR: Normal. OSSEOUS STRUCTURES: No significant abnormalities. VISUALIZED UPPER ABDOMEN: Normal. OTHER FINDINGS: None. IMPRESSION: No active disease.
--- NOTE | 2018-01-24 17:31 | CP.PCM.CON ---
<LeninJordi - Last Filed: 01/24/18 17:52> History of Present Illness - History of Present Illness History of Present Illness: ICU Consult note 37 y/o M with PMhx of IDDM presented to ED c/o diffuse abd pain, vomiting, nausea and unable to tolerate PO for the past 2-3 days. As per patient he has Hx of DM diagnosed in 2011 and initially he was on PO treatment but had been on Insulin also for long tem now. He uses his Humalog as prescribed as well as Metformin and Glipizide but states that even though he need frequent visits to the hosp and admission because of uncontrolled BS levels. He hasnt been able to drink or eat because of vomiting, has poor apptite, c/o feeling thirsty and still has diffuse abd pain. Vomiting and nausea improved since in ED. Patient states he is also on pain meds and pain management as outpatient for spine disease and sciatica. Denies ETOH or drugs. Denies headache , SOB, CP, palpitations. Patient alert, responding to verbal commands without difficulty. ED course Slight leukocitosis BS 400-500 Carbon dioxide 7 Na 137, K 4.8, AST/ALT/ALP 100s Given 1L of NS bolus and zofran Insulin 4 units stat given Order for insulin drip starting at 8 was placed Review of Systems - Review of Systems All systems: reviewed and no additional remarkable complaints except (Those described on HPI) Past Patient History - Infectious Disease Hx of Infectious Diseases: None - Past Medical History & Family History Past Medical History?: Yes - Past Social History Smoking Status: Never Smoked Alcohol: None Drugs: Denies - CARDIAC Hx Hypercholesterolemia: Yes Hx Hypertension: Yes - PULMONARY Hx Respiratory Disorders: No - NEUROLOGICAL Hx Neurological Disorder: No Other/Comment: Sciatica - HEENT Hx HEENT Problems: No - RENAL Hx Chronic Kidney Disease: No - ENDOCRINE/METABOLIC Hx Endocrine Disorders: Yes Hx Diabetes Mellitus Type 2: Yes - HEMATOLOGICAL/ONCOLOGICAL Hx Human Immunodeficiency Virus (HIV): No - INTEGUMENTARY Hx Dermatological Problems: No - MUSCULOSKELETAL/RHEUMATOLOGICAL Hx Arthritis: Yes - GASTROINTESTINAL Hx Gastrointestinal Disorders: No - GENITOURINARY/GYNECOLOGICAL Hx Genitourinary Disorders: No - PSYCHIATRIC Hx Anxiety: No Hx Bipolar Disorder: No Hx Depression: No Hx Post Traumatic Stress Disorder: No Hx Schizophrenia: No - SURGICAL HISTORY Hx Surgeries: Yes Other/Comment: Pilonidal cyst removal - ANESTHESIA Hx Anesthesia: Yes Hx Anesthesia Reactions: No Hx Malignant Hyperthermia: No Meds Allergies/Adverse Reactions: Allergies Allergy/AdvReac Type Severity Reaction Status Date / Time No Known Allergies Allergy Verified 01/24/18 15:05 - Medications Medications: Current Medications Dextrose (Dextrose 50% Inj) 0 ml IV STAT PRN; Protocol PRN Reason: Hypoglycemia Protocol Dextrose (Glutose 15) 0 gm PO ONCE PRN; Protocol PRN Reason: Hypoglycemia Protocol Glucagon (Glucagen Diagnostic Kit) 0 mg IM STAT PRN; Protocol PRN Reason: Hypoglycemia Protocol Insulin Human Regular 100 (units/ Sodium Chloride) 101 mls @ 8.08 mls/hr IV .[id number] GER[place]; 8 UNITS/HR PRN Reason: Protocol Sodium Chloride (Sodium Chloride 0.9%) 1,000 mls @ 999 mls/hr IV .Q1H1M [facility] Stop: 01/24/18 20:15 Morphine Sulfate (Morphine) 2 mg IVP Q4 PRN PRN Reason: Pain, severe (8-10) Ondansetron HCl (Zofran Inj) 4 mg IVP Q6 PRN PRN Reason: Nausea/Vomiting Physical Exam - Constitutional Appears: Non-toxic, No Acute Distress - Head Exam Head Exam: ATRAUMATIC, NORMAL INSPECTION - Eye Exam Eye Exam: Conjunctival injection (mild), EOMI, PERRL Pupil Exam: PERRL - ENT Exam ENT Exam: Mucous Membranes Dry - Neck Exam Neck exam: Positive for: Full Rom, Normal Inspection. Negative for: Lymphadenopathy, Tenderness - Respiratory Exam Respiratory Exam: Clear to Auscultation Bilateral, NORMAL BREATHING PATTERN. absent: Decreased Breath Sounds, Rales, Rhonchi, Wheezes, Stridor - Cardiovascular Exam Cardiovascular Exam: REGULAR RHYTHM, +S1, +S2. absent: Tachycardia, Gallop - GI/Abdominal Exam GI & Abdominal Exam: Normal Bowel Sounds, Soft, Tenderness (Diffuse, moderate). absent: Distended, Firm, Rebound, Rigid - Extremities Exam Extremities exam: Positive for: normal capillary refill, normal inspection, pedal pulses present. Negative for: calf tenderness, joint swelling, pedal edema, tenderness - Neurological Exam Neurological exam: Alert, Normal Gait, Oriented x3 - Psychiatric Exam Psychiatric exam: Normal Affect, Normal Mood - Skin Skin Exam: Dry, Normal Color Results - Vital Signs Recent Vital Signs: Last Vital Signs Temp 97.6 F 01/24/18 15:05 Pulse 120 H 01/24/18 15:05 Resp 20 01/24/18 15:05 BP 148/92 H 01/24/18 15:05 Pulse Ox 97 01/24/18 17:20 - Labs Result Diagrams: 01/24/18 15:42 01/24/18 15:42 Labs: Laboratory Results - last 24 hr 01/24/18 01/24/18 01/24/18 15:10 15:42 15:42 WBC 15.1 H D RBC 5.33 Hgb 15.9 D Hct 48.2 MCV 90.4 MCH 29.8 MCHC 32.9 L RDW 13.3 Plt Count 270 D MPV 12.5 H Neut % (Auto) 73.1 Lymph % (Auto) 20.0 [place] % (Auto) 6.1 Eos % (Auto) 0.1 Baso % (Auto) 0.7 Neut # (Auto) 11.0 H Lymph # (Auto) 3.0 [place] # (Auto) 0.9 H Eos # (Auto) 0.0 Baso # (Auto) 0.1 pO2 VBG pH VBG pCO2 VBG HCO3 VBG Total CO2 VBG O2 Sat (Calc) VBG Base Excess VBG Potassium Glucose Lactate FiO2 Crit Value Called To Crit Value Called By Crit Value Read Back Blood Gas Notified Time Sodium 137 Potassium 4.8 Chloride 96 L Carbon Dioxide 7 L* D Anion Gap 39 H BUN 16 Creatinine 0.9 Est GFR ( Amer) > 60 Est GFR (Non-Af Amer) > 60 POC Glucose (mg/dL) 459 H* Random Glucose 534 H* D Calcium 9.9 Total Bilirubin 1.1 AST 105 H ALT 125 H Alkaline Phosphatase 132 H Troponin I < 0.0120 Total Protein 10.7 H Albumin 4.9 Globulin 5.8 H Albumin/Globulin Ratio 0.8 L Venous Blood Potassium Alcohol, Quantitative < 10 01/24/18 16:32 WBC RBC Hgb Hct MCV MCH MCHC RDW Plt Count MPV Neut % (Auto) Lymph % (Auto) [place] % (Auto) Eos % (Auto) Baso % (Auto) Neut # (Auto) Lymph # (Auto) [place] # (Auto) Eos # (Auto) Baso # (Auto) pO2 66 H VBG pH 7.23 L VBG pCO2 24 L VBG HCO3 12.5 VBG Total CO2 10.8 L VBG O2 Sat (Calc) 95.1 H VBG Base Excess -15.6 L VBG Potassium 4.0 Glucose 442 H* Lactate 1.8 FiO2 21.0 Crit Value Called To Felipa duque Crit Value Called By 333 Crit Value Read Back Y Blood Gas Notified Time 1635 Sodium 135.0 Potassium Chloride 100.0 Carbon Dioxide Anion Gap BUN Creatinine Est GFR ( Amer) Est GFR (Non-Af Amer) POC Glucose (mg/dL) Random Glucose Calcium Total Bilirubin AST ALT Alkaline Phosphatase Troponin I Total Protein Albumin Globulin Albumin/Globulin Ratio Venous Blood Potassium 4.0 Alcohol, Quantitative Assessment & Plan - Assessment and Plan (Free Text) Assessment: 37 y/o M with PMHx of IDDM is admitted for DKA Admitted to ICU Aggressive fluid hydration. 3L of NS bolus ordered C/W Insulin drip and f/u protocol Accuchecks q1h Neuro checks Q2h Replace potassium as needed: F/U BMP for 22:00 F/U CMP, MG, Phosp and CBC AM Recommend to C/W IV fluids and Insulin drip until anion gap normalizes. <Kyle Parra - Last Filed: 01/24/18 18:50> History of Present Illness - History of Present Illness History of Present Illness: Attestation: Patient seen and examined at the bedside with Resident Dr. Mamie Phelps; and I agree with his outline of plans and management documented below; reflecting my review of all applicable clinical data, and participation in the care of the patient throughout the day in ICU; today, January 24, 2018. Results - Vital Signs Recent Vital Signs: Last Vital Signs Temp 97.6 F 01/24/18 15:05 Pulse 120 H 01/24/18 15:05 Resp 20 01/24/18 15:05 BP 148/92 H 01/24/18 15:05 Pulse Ox 97 01/24/18 17:20 - Labs Result Diagrams: 01/24/18 15:42 01/24/18 15:42 Labs: Laboratory Results - last 24 hr 01/24/18 01/24/18 01/24/18 15:10 15:42 15:42 WBC 15.1 H D RBC 5.33 Hgb 15.9 D Hct 48.2 MCV 90.4 MCH 29.8 MCHC 32.9 L RDW 13.3 Plt Count 270 D MPV 12.5 H Neut % (Auto) 73.1 Lymph % (Auto) 20.0 [place] % (Auto) 6.1 Eos % (Auto) 0.1 Baso % (Auto) 0.7 Neut # (Auto) 11.0 H Lymph # (Auto) 3.0 [place] # (Auto) 0.9 H Eos # (Auto) 0.0 Baso # (Auto) 0.1 pO2 VBG pH VBG pCO2 VBG HCO3 VBG Total CO2 VBG O2 Sat (Calc) VBG Base Excess VBG Potassium Glucose Lactate FiO2 Crit Value Called To Crit Value Called By Crit Value Read Back Blood Gas Notified Time Sodium 137 Potassium 4.8 Chloride 96 L Carbon Dioxide 7 L* D Anion Gap 39 H BUN 16 Creatinine 0.9 Est GFR ( Amer) > 60 Est GFR (Non-Af Amer) > 60 POC Glucose (mg/dL) 459 H* Random Glucose 534 H* D Calcium 9.9 Total Bilirubin 1.1 AST 105 H ALT 125 H Alkaline Phosphatase 132 H Troponin I < 0.0120 Total Protein 10.7 H Albumin 4.9 Globulin 5.8 H Albumin/Globulin Ratio 0.8 L Venous Blood Potassium Urine Color Urine Clarity Urine pH Ur Specific [place] Urine Protein Urine Glucose (UA) Urine Ketones Urine Blood Urine Nitrate Urine Bilirubin Urine Urobilinogen Ur Leukocyte Esterase Urine RBC (Auto) Urine Microscopic WBC Alcohol, Quantitative < 10 01/24/18 01/24/18 01/24/18 16:32 17:40 18:05 WBC RBC Hgb Hct MCV MCH MCHC RDW Plt Count MPV Neut % (Auto) Lymph % (Auto) [place] % (Auto) Eos % (Auto) Baso % (Auto) Neut # (Auto) Lymph # (Auto) [place] # (Auto) Eos # (Auto) Baso # (Auto) pO2 66 H VBG pH 7.23 L VBG pCO2 24 L VBG HCO3 12.5 VBG Total CO2 10.8 L VBG O2 Sat (Calc) 95.1 H VBG Base Excess -15.6 L VBG Potassium 4.0 Glucose 442 H* Lactate 1.8 FiO2 21.0 Crit Value Called To Felipa duque Crit Value Called By 333 Crit Value Read Back Y Blood Gas Notified Time 1635 Sodium 135.0 Potassium Chloride 100.0 Carbon Dioxide Anion Gap BUN Creatinine Est GFR ( Amer) Est GFR (Non-Af Amer) POC Glucose (mg/dL) 339 H Random Glucose Calcium Total Bilirubin AST ALT Alkaline Phosphatase Troponin I Total Protein Albumin Globulin Albumin/Globulin Ratio Venous Blood Potassium 4.0 Urine Color Straw Urine Clarity Clear Urine pH 6.0 Ur Specific [place] 1.028 Urine Protein 100 Urine Glucose (UA) >=500 Urine Ketones 80 Urine Blood Negative Urine Nitrate Negative Urine Bilirubin Negative Urine Urobilinogen 0.2-1.0 Ur Leukocyte Esterase Neg Urine RBC (Auto) < 1 Urine Microscopic WBC < 1 Alcohol, Quantitative
[2018-01-24 18:03] LABS: URINE BILIRUBIN NEGATIVE (NEGATIVE); URINE BLOOD NEGATIVE (NEGATIVE); URINE CLARITY CLEAR (Clear); URINE COLOR STRAW (YELLOW); URINE GLUCOSE (UA) >=500 mg/dL (Normal); URINE LEUKOCYTE ESTERASE NEG Leu/uL (Negative); URINE PROTEIN 100 mg/dL (NEGATIVE); URINE UROBILINOGEN 0.2-1.0 mg/dL (0.2-1.0)
[2018-01-24] MEDS: Sodium Chloride 0.9% 1,000 ML IV SCH ×4 (18:36→20:07)
[2018-01-24] MEDS ORDERED: Oxycodone/Acetaminophen 5/325 mg Tab PO PRN (19:49)
[2018-01-24] MEDS: Oxycodone/Acetaminophen 5/325 mg Tab PO PRN (20:13)
[2018-01-24 22:59] LABS: BLOOD UREA NITROGEN 13 mg/dl (9-20); CALCIUM 8.6 mg/dL (8.4-10.2); GFR AFRICAN-AMERICAN > 60; GFR NON-AFRICAN AMERICAN > 60
[2018-01-25] MEDS: Sodium Chloride 0.9% 1,000 ML IV SCH ×2 (01:26→07:15)
[2018-01-25 05:49] LABS: BASO % 0.4 % (0.0-2.0); EOS # 0.1 K/uL (0.0-0.7); EOS % 1.1 % (0.0-4.0); HEMOGLOBIN 13.1 g/dL (12.0-18.0); LYMPH # 4.7 K/uL (1.0-4.3); LYMPH % 44.1 % (20.0-40.0); MEAN CELL VOLUME 90.2 fl (80.0-94.0); MEAN CORPUSCULAR HEMOGLOBIN 30.1 pg (27.0-31.0); MEAN CORPUSCULAR HGB CONC 33.4 g/dL (33.0-37.0); MEAN PLATELET VOLUME 11.9 fl (7.2-11.7); NEUT # 4.9 K/uL (1.8-7.0); NEUT % 45.4 % (50.0-75.0); NRBC % 0.1 % (0.0-0.0); RBC 4.34 Mil/uL (4.40-5.90); RED CELL DISTRIBUTION WIDTH 13.6 % (11.5-14.5); WHITE BLOOD COUNT 10.7 K/uL (4.8-10.8)
[2018-01-25 06:04] LABS: ALBUMIN 3.8 g/dL (3.5-5.0); ALT/SGPT 91 U/L (21-72); AST/SGOT 76 U/L (17-59); BLOOD UREA NITROGEN 12 mg/dl (9-20); CALCIUM 8.5 mg/dL (8.4-10.2); GFR AFRICAN-AMERICAN > 60; GFR NON-AFRICAN AMERICAN > 60
--- NOTE | 2018-01-25 08:10 | CARD ---
APPROVED REPORT EKG Measurement Heart [id number] <Conclusion> Sinus tachycardia Prolonged QT Abnormal ECG
[2018-01-25] MEDS ORDERED: Insulin Detemir 100 Units/ml Inj SC ONE (08:39)
--- NOTE | 2018-01-25 09:13 | CP.PCM.HP ---
History of Present Illness - History of Present Illness History of Present Illness: 37 yr old male admitted with dka and serum glu greater than 500 with abdominal pains and nausea/vomiting ?poor compliance with diet and meds hx of sciatica with chronic back pains and hypertension Present on Admission - Present on Admission Any Indicators Present on Admission: Yes Past Patient History - Infectious Disease Hx of Infectious Diseases: None - Past Medical History & Family History Past Medical History?: Yes - Past Social History Smoking Status: Never Smoked - CARDIAC Hx Hypercholesterolemia: Yes Hx Hypertension: Yes - PULMONARY Hx Respiratory Disorders: No - NEUROLOGICAL Hx Neurological Disorder: No - HEENT Hx HEENT Problems: No - RENAL Hx Chronic Kidney Disease: No - ENDOCRINE/METABOLIC Hx Endocrine Disorders: Yes - HEMATOLOGICAL/ONCOLOGICAL Hx Blood Disorders: No Hx Human Immunodeficiency Virus (HIV): No - INTEGUMENTARY Hx Dermatological Problems: No - MUSCULOSKELETAL/RHEUMATOLOGICAL Hx Falls: Yes - GASTROINTESTINAL Hx Gastrointestinal Disorders: No - GENITOURINARY/GYNECOLOGICAL Hx Genitourinary Disorders: No - PSYCHIATRIC Hx Depression: Yes Hx Substance Use: No - SURGICAL HISTORY Hx Surgeries: Yes Other/Comment: Pilonidal cyst removal - ANESTHESIA Hx Anesthesia: Yes Hx Anesthesia Reactions: No Hx Malignant Hyperthermia: No Meds Allergies/Adverse Reactions: Allergies Allergy/AdvReac Type Severity Reaction Status Date / Time No Known Allergies Allergy Verified 01/24/18 15:05 Physical Exam - Constitutional Appears: No Acute Distress - Head Exam Head Exam: ATRAUMATIC, NORMAL INSPECTION, NORMOCEPHALIC - Eye Exam Eye Exam: EOMI, Normal appearance, PERRL Pupil Exam: NORMAL ACCOMODATION, PERRL - ENT Exam ENT Exam: Mucous Membranes Moist, Normal Exam - Neck Exam Neck exam: Positive for: Normal Inspection - Respiratory Exam Respiratory Exam: Clear to Auscultation Bilateral, NORMAL BREATHING PATTERN - Cardiovascular Exam Cardiovascular Exam: REGULAR RHYTHM - GI/Abdominal Exam GI & Abdominal Exam: Normal Bowel Sounds, Soft. absent: Tenderness - Rectal Exam Rectal Exam: NORMAL INSPECTION - Extremities Exam Extremities exam: Positive for: normal inspection - Back Exam Back exam: NORMAL INSPECTION - Neurological Exam Neurological exam: Alert, CN II-XII Intact, Normal Gait, Oriented x3, Reflexes Normal - Psychiatric Exam Psychiatric exam: Normal Affect, Normal Mood - Skin Skin Exam: Dry, Intact, Normal Color, Warm Results - Vital Signs Recent Vital Signs: Last Vital Signs Temp 97.7 F 01/25/18 08:00 Pulse 94 H 01/25/18 08:00 Resp 23 01/25/18 08:00 BP 146/79 01/25/18 08:00 Pulse Ox 100 01/25/18 08:00 - Labs Result Diagrams: 01/25/18 04:40 01/25/18 04:40 Labs: Laboratory Results - last 24 hr 01/24/18 01/24/18 01/24/18 15:10 15:42 15:42 WBC 15.1 H D RBC 5.33 Hgb 15.9 D Hct 48.2 MCV 90.4 MCH 29.8 MCHC 32.9 L RDW 13.3 Plt Count 270 D MPV 12.5 H Neut % (Auto) 73.1 Lymph % (Auto) 20.0 [place] % (Auto) 6.1 Eos % (Auto) 0.1 Baso % (Auto) 0.7 Neut # (Auto) 11.0 H Lymph # (Auto) 3.0 [place] # (Auto) 0.9 H Eos # (Auto) 0.0 Baso # (Auto) 0.1 pO2 VBG pH VBG pCO2 VBG HCO3 VBG Total CO2 VBG O2 Sat (Calc) VBG Base Excess VBG Potassium Glucose Lactate FiO2 Crit Value Called To Crit Value Called By Crit Value Read Back Blood Gas Notified Time Sodium 137 Potassium 4.8 Chloride 96 L Carbon Dioxide 7 L* D Anion Gap 39 H BUN 16 Creatinine 0.9 Est GFR ( Amer) > 60 Est GFR (Non-Af Amer) > 60 POC Glucose (mg/dL) 459 H* Random Glucose 534 H* D Calcium 9.9 Phosphorus Magnesium Total Bilirubin 1.1 AST 105 H ALT 125 H Alkaline Phosphatase 132 H Troponin I < 0.0120 Total Protein 10.7 H Albumin 4.9 Globulin 5.8 H Albumin/Globulin Ratio 0.8 L Venous Blood Potassium Urine Color Urine Clarity Urine pH Ur Specific [place] Urine Protein Urine Glucose (UA) Urine Ketones Urine Blood Urine Nitrate Urine Bilirubin Urine Urobilinogen Ur Leukocyte Esterase Urine RBC (Auto) Urine Microscopic WBC Alcohol, Quantitative < 10 01/24/18 01/24/18 01/24/18 16:32 17:40 18:05 WBC RBC Hgb Hct MCV MCH MCHC RDW Plt Count MPV Neut % (Auto) Lymph % (Auto) [place] % (Auto) Eos % (Auto) Baso % (Auto) Neut # (Auto) Lymph # (Auto) [place] # (Auto) Eos # (Auto) Baso # (Auto) pO2 66 H VBG pH 7.23 L VBG pCO2 24 L VBG HCO3 12.5 VBG Total CO2 10.8 L VBG O2 Sat (Calc) 95.1 H VBG Base Excess -15.6 L VBG Potassium 4.0 Glucose 442 H* Lactate 1.8 FiO2 21.0 Crit Value Called To Felipa duque Crit Value Called By 333 Crit Value Read Back Y Blood Gas Notified Time 1635 Sodium 135.0 Potassium Chloride 100.0 Carbon Dioxide Anion Gap BUN Creatinine Est GFR ( Amer) Est GFR (Non-Af Amer) POC Glucose (mg/dL) 339 H Random Glucose Calcium Phosphorus Magnesium Total Bilirubin AST ALT Alkaline Phosphatase Troponin I Total Protein Albumin Globulin Albumin/Globulin Ratio Venous Blood Potassium 4.0 Urine Color Straw Urine Clarity Clear Urine pH 6.0 Ur Specific [place] 1.028 Urine Protein 100 Urine Glucose (UA) >=500 Urine Ketones 80 Urine Blood Negative Urine Nitrate Negative Urine Bilirubin Negative Urine Urobilinogen 0.2-1.0 Ur Leukocyte Esterase Neg Urine RBC (Auto) < 1 Urine Microscopic WBC < 1 Alcohol, Quantitative 01/24/18 01/24/18 01/24/18 20:17 21:08 22:04 WBC RBC Hgb Hct MCV MCH MCHC RDW Plt Count MPV Neut % (Auto) Lymph % (Auto) [place] % (Auto) Eos % (Auto) Baso % (Auto) Neut # (Auto) Lymph # (Auto) [place] # (Auto) Eos # (Auto) Baso # (Auto) pO2 VBG pH VBG pCO2 VBG HCO3 VBG Total CO2 VBG O2 Sat (Calc) VBG Base Excess VBG Potassium Glucose Lactate FiO2 Crit Value Called To Crit Value Called By Crit Value Read Back Blood Gas Notified Time Sodium Potassium Chloride Carbon Dioxide Anion Gap BUN Creatinine Est GFR ( Amer) Est GFR (Non-Af Amer) POC Glucose (mg/dL) 185 H 172 H 173 H Random Glucose Calcium Phosphorus Magnesium Total Bilirubin AST ALT Alkaline Phosphatase Troponin I Total Protein Albumin Globulin Albumin/Globulin Ratio Venous Blood Potassium Urine Color Urine Clarity Urine pH Ur Specific [place] Urine Protein Urine Glucose (UA) Urine Ketones Urine Blood Urine Nitrate Urine Bilirubin Urine Urobilinogen Ur Leukocyte Esterase Urine RBC (Auto) Urine Microscopic WBC Alcohol, Quantitative 01/24/18 01/24/18 01/25/18 22:30 23:07 00:02 WBC RBC Hgb Hct MCV MCH MCHC RDW Plt Count MPV Neut % (Auto) Lymph % (Auto) [place] % (Auto) Eos % (Auto) Baso % (Auto) Neut # (Auto) Lymph # (Auto) [place] # (Auto) Eos # (Auto) Baso # (Auto) pO2 VBG pH VBG pCO2 VBG HCO3 VBG Total CO2 VBG O2 Sat (Calc) VBG Base Excess VBG Potassium Glucose Lactate FiO2 Crit Value Called To Crit Value Called By Crit Value Read Back Blood Gas Notified Time Sodium 138 Potassium 4.0 Chloride 105 Carbon Dioxide 15 L Anion Gap 22 H BUN 13 Creatinine 0.5 L Est GFR ( Amer) > 60 Est GFR (Non-Af Amer) > 60 POC Glucose (mg/dL) 215 H 269 H Random Glucose 177 H Calcium 8.6 Phosphorus Magnesium Total Bilirubin AST ALT Alkaline Phosphatase Troponin I Total Protein Albumin Globulin Albumin/Globulin Ratio Venous Blood Potassium Urine Color Urine Clarity Urine pH Ur Specific [place] Urine Protein Urine Glucose (UA) Urine Ketones Urine Blood Urine Nitrate Urine Bilirubin Urine Urobilinogen Ur Leukocyte Esterase Urine RBC (Auto) Urine Microscopic WBC Alcohol, Quantitative 01/25/18 01/25/18 01/25/18 01:03 02:02 03:10 WBC RBC Hgb Hct MCV MCH MCHC RDW Plt Count MPV Neut % (Auto) Lymph % (Auto) [place] % (Auto) Eos % (Auto) Baso % (Auto) Neut # (Auto) Lymph # (Auto) [place] # (Auto) Eos # (Auto) Baso # (Auto) pO2 VBG pH VBG pCO2 VBG HCO3 VBG Total CO2 VBG O2 Sat (Calc) VBG Base Excess VBG Potassium Glucose Lactate FiO2 Crit Value Called To Crit Value Called By Crit Value Read Back Blood Gas Notified Time Sodium Potassium Chloride Carbon Dioxide Anion Gap BUN Creatinine Est GFR ( Amer) Est GFR (Non-Af Amer) POC Glucose (mg/dL) 224 H 208 H 170 H Random Glucose Calcium Phosphorus Magnesium Total Bilirubin AST ALT Alkaline Phosphatase Troponin I Total Protein Albumin Globulin Albumin/Globulin Ratio Venous Blood Potassium Urine Color Urine Clarity Urine pH Ur Specific [place] Urine Protein Urine Glucose (UA) Urine Ketones Urine Blood Urine Nitrate Urine Bilirubin Urine Urobilinogen Ur Leukocyte Esterase Urine RBC (Auto) Urine Microscopic WBC Alcohol, Quantitative 01/25/18 01/25/18 01/25/18 04:18 04:40 04:40 WBC 10.7 RBC 4.34 L Hgb 13.1 D Hct 39.2 MCV 90.2 MCH 30.1 MCHC 33.4 RDW 13.6 Plt Count 146 D MPV 11.9 H Neut % (Auto) 45.4 L Lymph % (Auto) 44.1 H [place] % (Auto) 9.0 Eos % (Auto) 1.1 Baso % (Auto) 0.4 Neut # (Auto) 4.9 Lymph # (Auto) 4.7 H [place] # (Auto) 1.0 H Eos # (Auto) 0.1 Baso # (Auto) 0.0 pO2 VBG pH VBG pCO2 VBG HCO3 VBG Total CO2 VBG O2 Sat (Calc) VBG Base Excess VBG Potassium Glucose Lactate FiO2 Crit Value Called To Crit Value Called By Crit Value Read Back Blood Gas Notified Time Sodium 139 Potassium 3.6 Chloride 106 Carbon Dioxide 23 Anion Gap 14 BUN 12 Creatinine 0.6 L Est GFR ( Amer) > 60 Est GFR (Non-Af Amer) > 60 POC Glucose (mg/dL) 144 H Random Glucose 147 H Calcium 8.5 Phosphorus 2.7 Magnesium 2.0 Total Bilirubin 0.7 AST 76 H D ALT 91 H D Alkaline Phosphatase 92 Troponin I Total Protein 7.7 Albumin 3.8 Globulin 3.9 Albumin/Globulin Ratio 1.0 Venous Blood Potassium Urine Color Urine Clarity Urine pH Ur Specific [place] Urine Protein Urine Glucose (UA) Urine Ketones Urine Blood Urine Nitrate Urine Bilirubin Urine Urobilinogen Ur Leukocyte Esterase Urine RBC (Auto) Urine Microscopic WBC Alcohol, Quantitative 01/25/18 01/25/18 01/25/18 05:17 06:02 06:57 WBC RBC Hgb Hct MCV MCH MCHC RDW Plt Count MPV Neut % (Auto) Lymph % (Auto) [place] % (Auto) Eos % (Auto) Baso % (Auto) Neut # (Auto) Lymph # (Auto) [place] # (Auto) Eos # (Auto) Baso # (Auto) pO2 VBG pH VBG pCO2 VBG HCO3 VBG Total CO2 VBG O2 Sat (Calc) VBG Base Excess VBG Potassium Glucose Lactate FiO2 Crit Value Called To Crit Value Called By Crit Value Read Back Blood Gas Notified Time Sodium Potassium Chloride Carbon Dioxide Anion Gap BUN Creatinine Est GFR ( Amer) Est GFR (Non-Af Amer) POC Glucose (mg/dL) 158 H 189 H 177 H Random Glucose Calcium Phosphorus Magnesium Total Bilirubin AST ALT Alkaline Phosphatase Troponin I Total Protein Albumin Globulin Albumin/Globulin Ratio Venous Blood Potassium Urine Color Urine Clarity Urine pH Ur Specific [place] Urine Protein Urine Glucose (UA) Urine Ketones Urine Blood Urine Nitrate Urine Bilirubin Urine Urobilinogen Ur Leukocyte Esterase Urine RBC (Auto) Urine Microscopic WBC Alcohol, Quantitative 01/25/18 08:01 WBC RBC Hgb Hct MCV MCH MCHC RDW Plt Count MPV Neut % (Auto) Lymph % (Auto) [place] % (Auto) Eos % (Auto) Baso % (Auto) Neut # (Auto) Lymph # (Auto) [place] # (Auto) Eos # (Auto) Baso # (Auto) pO2 VBG pH VBG pCO2 VBG HCO3 VBG Total CO2 VBG O2 Sat (Calc) VBG Base Excess VBG Potassium Glucose Lactate FiO2 Crit Value Called To Crit Value Called By Crit Value Read Back Blood Gas Notified Time Sodium Potassium Chloride Carbon Dioxide Anion Gap BUN Creatinine Est GFR ( Amer) Est GFR (Non-Af Amer) POC Glucose (mg/dL) 170 H Random Glucose Calcium Phosphorus Magnesium Total Bilirubin AST ALT Alkaline Phosphatase Troponin I Total Protein Albumin Globulin Albumin/Globulin Ratio Venous Blood Potassium Urine Color Urine Clarity Urine pH Ur Specific [place] Urine Protein Urine Glucose (UA) Urine Ketones Urine Blood Urine Nitrate Urine Bilirubin Urine Urobilinogen Ur Leukocyte Esterase Urine RBC (Auto) Urine Microscopic WBC Alcohol, Quantitative Assessment & Plan - Assessment and Plan (Free Text) Assessment: dka improved dehydration htn sciatica with chronic back pains ?compliance with rx Plan: endocrine and pain management consult transfer to regular floor
[2018-01-25] MEDS: Potassium Ch 20mEq in D5-1/2NS 1,000 ML IV SCH ×2 (09:20→21:48)
--- NOTE | 2018-01-25 10:26 | CP.CCUPN ---
<Jordi Phelps - Last Filed: 01/25/18 10:24> CCU Subjective - Physician Review Subjective (Free Text): 01/25/18 10:24 Patient evaluated at bedside this AM. Alert in not acute distress, freely mobile , denies vomiting or nausea. Still c/o mild abd pain that has improved. No acute event overnight. Tolerating PO. Denies vision changes, headache or dizziness. CCU Objective - Vital Signs / Intake & Output Vital Signs (Last 4 hours): Vital Signs Temp Pulse Resp BP Pulse Ox 01/25/18 08:00 97.7 F 94 H 23 146/79 100 Intake and Output (Last 8hrs): Intake & Output 01/24/18 01/25/18 01/25/18 22:59 06:59 14:59 Intake Total 1954.9 120 Balance 1954.9 120 Weight 190 lb Intake: IV 1954.9 Oral 120 - Physical Exam Head: Positive for: Atraumatic, Normocephalic Pupils: Positive for: PERRL Extroacular Muscles: Positive for: EOMI Mouth: Positive for: Moist Mucous Membranes Neck: Negative for: JVD, Lymphadenopathy Respiratory/Chest: Positive for: Clear to Auscultation, Good Air Exchange. Negative for: Respiratory Distress, Accessory Muscle Use Cardiovascular: Positive for: Regular Rate and Rhythm, Normal S1, S2 Abdomen: Positive for: Tenderness (Mild, diffuse), Normal Bowel Sounds. Negative for: Distention, Peritoneal Signs, Rebound, Feeding Tubes Upper Extremity: Positive for: Normal ROM, Capillary Refill < 2s. Negative for : Cyanosis, Edema, Deformity Lower Extremity: Positive for: Normal Inspection, Capillary Refill < 2 s. Negative for: Edema, CALF TENDERNESS, Deformity Neurological: Positive for: GCS=15, Speech Normal, Motor Func Grossly Intact Skin: Positive for: Warm, Normal Color Psychiatric: Positive for: Alert, Oriented x 3 - Medications Active Medications: Active Medications Generic Name Dose Route Start Last Admin Trade Name Freq PRN Reason Stop Dose Admin Atorvastatin Calcium 10 mg 01/25/18 09:30 01/25/18 09:43 Lipitor PO 10 mg DAILY GERMAN Administration Clonidine HCl 0.2 mg 01/24/18 17:44 Catapres PO Q8 PRN WITHDRAWAL SYMPTOMS Cyclobenzaprine HCl 10 mg 01/24/18 20:00 01/25/18 09:25 Flexeril PO 10 mg Q8 GERMAN Administration Dextrose 0 ml 01/24/18 16:29 Dextrose 50% Inj IV STAT PRN Hypoglycemia Protocol Protocol Dextrose 0 gm 01/24/18 16:29 Glutose 15 PO ONCE PRN Hypoglycemia Protocol Protocol Duloxetine HCl 60 mg 01/25/18 22:00 Cymbalta PO HS GERMAN Enoxaparin Sodium 40 mg 01/25/18 22:00 Lovenox SC HS GERMAN Protocol Glipizide 10 mg 01/25/18 17:00 Glucotrol PO BID GERMAN Glucagon 0 mg 01/24/18 16:29 Glucagen Diagnostic Kit IM STAT PRN Hypoglycemia Protocol Protocol Potassium Chloride/Dextrose/Sod Cl 1,000 mls @ 80 mls/hr 01/25/18 08:45 01/25 09:20 Potassium Chl 20 Meq In D5-1/2ns IV 01/26/18 08:40 80 mls/hr .[id number] GERMAN Administration Ibuprofen 800 mg 01/25/18 01:00 01/25/18 09:24 Motrin Tab PO 800 mg Q8 GERMAN Administration Insulin Human Lispro 15 units 01/25/18 11:30 Humalog SC ACTID GERMAN Metformin HCl 1,000 mg 01/25/18 17:00 Glucophage PO BID GERMAN Morphine Sulfate 2 mg 01/24/18 17:13 01/25/18 09:36 Morphine IVP 2 mg Q4 PRN Administration Pain, severe (8-10) Ondansetron HCl 4 mg 01/24/18 17:16 Zofran Inj IVP Q6 PRN Nausea/Vomiting Oxycodone/Acetaminophen 1 tab 01/24/18 19:51 01/24/18 20:13 Percocet 5/325 Mg Tab PO 01/27/18 19:50 1 tab Q6 PRN Administration Pain, moderate (4-7) Pregabalin 75 mg 01/25/18 09:00 01/25/18 09:38 Lyrica PO 75 mg Q12H GERMAN Administration - Patient Studies Lab Studies: Lab Studies 01/25/18 01/25/18 01/25/18 Range/Units 09:11 08:01 06:57 WBC (4.8-10.8) K/uL RBC (4.40-5.90) Mil/uL Hgb (12.0-18.0) g/dL Hct (35.0-51.0) % MCV (80.0-94.0) fl MCH (27.0-31.0) pg MCHC (33.0-37.0) g/dL RDW (11.5-14.5) % Plt Count (130-400) K/uL MPV (7.2-11.7) fl Neut % (Auto) (50.0-75.0) % Lymph % (Auto) (20.0-40.0) % [place] % (Auto) (0.0-10.0) % Eos % (Auto) (0.0-4.0) % Baso % (Auto) (0.0-2.0) % Neut # (Auto) (1.8-7.0) K/uL Lymph # (Auto) (1.0-4.3) K/uL [place] # (Auto) (0.0-0.8) K/uL Eos # (Auto) (0.0-0.7) K/uL Baso # (Auto) (0.0-0.2) K/uL pO2 (30-55) mm/Hg VBG pH (7.32-7.43) VBG pCO2 (40-60) mmHg VBG HCO3 mmol/L VBG Total CO2 (22-28) mmol/L VBG O2 Sat (Calc) (40-65) % VBG Base Excess (0.0-2.0) mmol/L VBG Potassium (3.6-5.2) mmol/L Glucose (75-110) mg/dL Lactate (0.7-2.1) mmol/L FiO2 % Crit Value Called To Crit Value Called By Crit Value Read Back Blood Gas Notified Time Sodium (132-148) mmol/l Potassium (3.6-5.0) MMOL/L Chloride (98-107) mmol/L Carbon Dioxide (22-30) mmol/L Anion Gap (10-20) BUN (9-20) mg/dl Creatinine (0.8-1.5) mg/dl Est GFR ( Amer) Est GFR (Non-Af Amer) POC Glucose (mg/dL) 245 H 170 H 177 H (65-110) mg/dL Random Glucose (75-110) mg/dL Calcium (8.4-10.2) mg/dL Phosphorus (2.5-4.5) mg/dl Magnesium (1.6-2.3) MG/DL Total Bilirubin (0.2-1.3) mg/dl AST (17-59) U/L ALT (21-72) U/L Alkaline Phosphatase (38-126) U/L Troponin I (0.00-0.120) ng/mL Total Protein (6.3-8.2) G/DL Albumin (3.5-5.0) g/dL Globulin (2.2-3.9) gm/dL Albumin/Globulin Ratio (1.0-2.1) Venous Blood Potassium (3.6-5.2) mmol/L Urine Color (YELLOW) Urine Clarity (Clear) Urine pH (5.0-8.0) Ur Specific [place] (1.003-1.030) Urine Protein (NEGATIVE) mg/dL Urine Glucose (UA) (Normal) mg/dL Urine Ketones (NEGATIVE) mg/dL Urine Blood (NEGATIVE) Urine Nitrate (NEGATIVE) Urine Bilirubin (NEGATIVE) Urine Urobilinogen (0.2-1.0) mg/dL Ur Leukocyte Esterase (Negative) Isidra/uL Urine RBC (Auto) (0-3) /hpf Urine Microscopic WBC (0-5) /hpf Alcohol, Quantitative (0-10) mg/dl 01/25/18 01/25/18 01/25/18 Range/Units 06:02 05:17 04:40 WBC (4.8-10.8) K/uL RBC (4.40-5.90) Mil/uL Hgb (12.0-18.0) g/dL Hct (35.0-51.0) % MCV (80.0-94.0) fl MCH (27.0-31.0) pg MCHC (33.0-37.0) g/dL RDW (11.5-14.5) % Plt Count (130-400) K/uL MPV (7.2-11.7) fl Neut % (Auto) (50.0-75.0) % Lymph % (Auto) (20.0-40.0) % [place] % (Auto) (0.0-10.0) % Eos % (Auto) (0.0-4.0) % Baso % (Auto) (0.0-2.0) % Neut # (Auto) (1.8-7.0) K/uL Lymph # (Auto) (1.0-4.3) K/uL [place] # (Auto) (0.0-0.8) K/uL Eos # (Auto) (0.0-0.7) K/uL Baso # (Auto) (0.0-0.2) K/uL pO2 (30-55) mm/Hg VBG pH (7.32-7.43) VBG pCO2 (40-60) mmHg VBG HCO3 mmol/L VBG Total CO2 (22-28) mmol/L VBG O2 Sat (Calc) (40-65) % VBG Base Excess (0.0-2.0) mmol/L VBG Potassium (3.6-5.2) mmol/L Glucose (75-110) mg/dL Lactate (0.7-2.1) mmol/L FiO2 % Crit Value Called To Crit Value Called By Crit Value Read Back Blood Gas Notified Time Sodium 139 (132-148) mmol/l Potassium 3.6 (3.6-5.0) MMOL/L Chloride 106 (98-107) mmol/L Carbon Dioxide 23 (22-30) mmol/L Anion Gap 14 (10-20) BUN 12 (9-20) mg/dl Creatinine 0.6 L (0.8-1.5) mg/dl Est GFR ( Amer) > 60 Est GFR (Non-Af Amer) > 60 POC Glucose (mg/dL) 189 H 158 H (65-110) mg/dL Random Glucose 147 H (75-110) mg/dL Calcium 8.5 (8.4-10.2) mg/dL Phosphorus 2.7 (2.5-4.5) mg/dl Magnesium 2.0 (1.6-2.3) MG/DL Total Bilirubin 0.7 (0.2-1.3) mg/dl AST 76 H D (17-59) U/L ALT 91 H D (21-72) U/L Alkaline Phosphatase 92 (38-126) U/L Troponin I (0.00-0.120) ng/mL Total Protein 7.7 (6.3-8.2) G/DL Albumin 3.8 (3.5-5.0) g/dL Globulin 3.9 (2.2-3.9) gm/dL Albumin/Globulin Ratio 1.0 (1.0-2.1) Venous Blood Potassium (3.6-5.2) mmol/L Urine Color (YELLOW) Urine Clarity (Clear) Urine pH (5.0-8.0) Ur Specific [place] (1.003-1.030) Urine Protein (NEGATIVE) mg/dL Urine Glucose (UA) (Normal) mg/dL Urine Ketones (NEGATIVE) mg/dL Urine Blood (NEGATIVE) Urine Nitrate (NEGATIVE) Urine Bilirubin (NEGATIVE) Urine Urobilinogen (0.2-1.0) mg/dL Ur Leukocyte Esterase (Negative) [place]ra/uL Urine RBC (Auto) (0-3) /hpf Urine Microscopic WBC (0-5) /hpf Alcohol, Quantitative (0-10) mg/dl 01/25/18 01/25/18 01/25/18 Range/Units 04:40 04:18 03:10 WBC 10.7 (4.8-10.8) K/uL RBC 4.34 L (4.40-5.90) Mil/uL Hgb 13.1 D (12.0-18.0) g/dL Hct 39.2 (35.0-51.0) % MCV 90.2 (80.0-94.0) fl MCH 30.1 (27.0-31.0) pg MCHC 33.4 (33.0-37.0) g/dL RDW 13.6 (11.5-14.5) % Plt Count 146 D (130-400) K/uL MPV 11.9 H (7.2-11.7) fl Neut % (Auto) 45.4 L (50.0-75.0) % Lymph % (Auto) 44.1 H (20.0-40.0) % [place] % (Auto) 9.0 (0.0-10.0) % Eos % (Auto) 1.1 (0.0-4.0) % Baso % (Auto) 0.4 (0.0-2.0) % Neut # (Auto) 4.9 (1.8-7.0) K/uL Lymph # (Auto) 4.7 H (1.0-4.3) K/uL [place] # (Auto) 1.0 H (0.0-0.8) K/uL Eos # (Auto) 0.1 (0.0-0.7) K/uL Baso # (Auto) 0.0 (0.0-0.2) K/uL pO2 (30-55) mm/Hg VBG pH (7.32-7.43) VBG pCO2 (40-60) mmHg VBG HCO3 mmol/L VBG Total CO2 (22-28) mmol/L VBG O2 Sat (Calc) (40-65) % VBG Base Excess (0.0-2.0) mmol/L VBG Potassium (3.6-5.2) mmol/L Glucose (75-110) mg/dL Lactate (0.7-2.1) mmol/L FiO2 % Crit Value Called To Crit Value Called By Crit Value Read Back Blood Gas Notified Time Sodium (132-148) mmol/l Potassium (3.6-5.0) MMOL/L Chloride (98-107) mmol/L Carbon Dioxide (22-30) mmol/L Anion Gap (10-20) BUN (9-20) mg/dl Creatinine (0.8-1.5) mg/dl Est GFR ( Amer) Est GFR (Non-Af Amer) POC Glucose (mg/dL) 144 H 170 H (65-110) mg/dL Random Glucose (75-110) mg/dL Calcium (8.4-10.2) mg/dL Phosphorus (2.5-4.5) mg/dl Magnesium (1.6-2.3) MG/DL Total Bilirubin (0.2-1.3) mg/dl AST (17-59) U/L ALT (21-72) U/L Alkaline Phosphatase (38-126) U/L Troponin I (0.00-0.120) ng/mL Total Protein (6.3-8.2) G/DL Albumin (3.5-5.0) g/dL Globulin (2.2-3.9) gm/dL Albumin/Globulin Ratio (1.0-2.1) Venous Blood Potassium (3.6-5.2) mmol/L Urine Color (YELLOW) Urine Clarity (Clear) Urine pH (5.0-8.0) Ur Specific [place] (1.003-1.030) Urine Protein (NEGATIVE) mg/dL Urine Glucose (UA) (Normal) mg/dL Urine Ketones (NEGATIVE) mg/dL Urine Blood (NEGATIVE) Urine Nitrate (NEGATIVE) Urine Bilirubin (NEGATIVE) Urine Urobilinogen (0.2-1.0) mg/dL Ur Leukocyte Esterase (Negative) [place]ra/uL Urine RBC (Auto) (0-3) /hpf Urine Microscopic WBC (0-5) /hpf Alcohol, Quantitative (0-10) mg/dl 01/25/18 01/25/18 01/25/18 Range/Units 02:02 01:03 00:02 WBC (4.8-10.8) K/uL RBC (4.40-5.90) Mil/uL Hgb (12.0-18.0) g/dL Hct (35.0-51.0) % MCV (80.0-94.0) fl MCH (27.0-31.0) pg MCHC (33.0-37.0) g/dL RDW (11.5-14.5) % Plt Count (130-400) K/uL MPV (7.2-11.7) fl Neut % (Auto) (50.0-75.0) % Lymph % (Auto) (20.0-40.0) % [place] % (Auto) (0.0-10.0) % Eos % (Auto) (0.0-4.0) % Baso % (Auto) (0.0-2.0) % Neut # (Auto) (1.8-7.0) K/uL Lymph # (Auto) (1.0-4.3) K/uL [place] # (Auto) (0.0-0.8) K/uL Eos # (Auto) (0.0-0.7) K/uL Baso # (Auto) (0.0-0.2) K/uL pO2 (30-55) mm/Hg VBG pH (7.32-7.43) VBG pCO2 (40-60) mmHg VBG HCO3 mmol/L VBG Total CO2 (22-28) mmol/L VBG O2 Sat (Calc) (40-65) % VBG Base Excess (0.0-2.0) mmol/L VBG Potassium (3.6-5.2) mmol/L Glucose (75-110) mg/dL Lactate (0.7-2.1) mmol/L FiO2 % Crit Value Called To Crit Value Called By Crit Value Read Back Blood Gas Notified Time Sodium (132-148) mmol/l Potassium (3.6-5.0) MMOL/L Chloride (98-107) mmol/L Carbon Dioxide (22-30) mmol/L Anion Gap (10-20) BUN (9-20) mg/dl Creatinine (0.8-1.5) mg/dl Est GFR ( Amer) Est GFR (Non-Af Amer) POC Glucose (mg/dL) 208 H 224 H 269 H (65-110) mg/dL Random Glucose (75-110) mg/dL Calcium (8.4-10.2) mg/dL Phosphorus (2.5-4.5) mg/dl Magnesium (1.6-2.3) MG/DL Total Bilirubin (0.2-1.3) mg/dl AST (17-59) U/L ALT (21-72) U/L Alkaline Phosphatase (38-126) U/L Troponin I (0.00-0.120) ng/mL Total Protein (6.3-8.2) G/DL Albumin (3.5-5.0) g/dL Globulin (2.2-3.9) gm/dL Albumin/Globulin Ratio (1.0-2.1) Venous Blood Potassium (3.6-5.2) mmol/L Urine Color (YELLOW) Urine Clarity (Clear) Urine pH (5.0-8.0) Ur Specific [place] (1.003-1.030) Urine Protein (NEGATIVE) mg/dL Urine Glucose (UA) (Normal) mg/dL Urine Ketones (NEGATIVE) mg/dL Urine Blood (NEGATIVE) Urine Nitrate (NEGATIVE) Urine Bilirubin (NEGATIVE) Urine Urobilinogen (0.2-1.0) mg/dL Ur Leukocyte Esterase (Negative) [place]/uL Urine RBC (Auto) (0-3) /hpf Urine Microscopic WBC (0-5) /hpf Alcohol, Quantitative (0-10) mg/dl 01/24/18 01/24/18 01/24/18 Range/Units 23:07 22:30 22:04 WBC (4.8-10.8) K/uL RBC (4.40-5.90) Mil/uL Hgb (12.0-18.0) g/dL Hct (35.0-51.0) % MCV (80.0-94.0) fl MCH (27.0-31.0) pg MCHC (33.0-37.0) g/dL RDW (11.5-14.5) % Plt Count (130-400) K/uL MPV (7.2-11.7) fl Neut % (Auto) (50.0-75.0) % Lymph % (Auto) (20.0-40.0) % [place] % (Auto) (0.0-10.0) % Eos % (Auto) (0.0-4.0) % Baso % (Auto) (0.0-2.0) % Neut # (Auto) (1.8-7.0) K/uL Lymph # (Auto) (1.0-4.3) K/uL [place] # (Auto) (0.0-0.8) K/uL Eos # (Auto) (0.0-0.7) K/uL Baso # (Auto) (0.0-0.2) K/uL pO2 (30-55) mm/Hg VBG pH (7.32-7.43) VBG pCO2 (40-60) mmHg VBG HCO3 mmol/L VBG Total CO2 (22-28) mmol/L VBG O2 Sat (Calc) (40-65) % VBG Base Excess (0.0-2.0) mmol/L VBG Potassium (3.6-5.2) mmol/L Glucose (75-110) mg/dL Lactate (0.7-2.1) mmol/L FiO2 % Crit Value Called To Crit Value Called By Crit Value Read Back Blood Gas Notified Time Sodium 138 (132-148) mmol/l Potassium 4.0 (3.6-5.0) MMOL/L Chloride 105 (98-107) mmol/L Carbon Dioxide 15 L (22-30) mmol/L Anion Gap 22 H (10-20) BUN 13 (9-20) mg/dl Creatinine 0.5 L (0.8-1.5) mg/dl Est GFR ( Amer) > 60 Est GFR (Non-Af Amer) > 60 POC Glucose (mg/dL) 215 H 173 H (65-110) mg/dL Random Glucose 177 H (75-110) mg/dL Calcium 8.6 (8.4-10.2) mg/dL Phosphorus (2.5-4.5) mg/dl Magnesium (1.6-2.3) MG/DL Total Bilirubin (0.2-1.3) mg/dl AST (17-59) U/L ALT (21-72) U/L Alkaline Phosphatase (38-126) U/L Troponin I (0.00-0.120) ng/mL Total Protein (6.3-8.2) G/DL Albumin (3.5-5.0) g/dL Globulin (2.2-3.9) gm/dL Albumin/Globulin Ratio (1.0-2.1) Venous Blood Potassium (3.6-5.2) mmol/L Urine Color (YELLOW) Urine Clarity (Clear) Urine pH (5.0-8.0) Ur Specific [place] (1.003-1.030) Urine Protein (NEGATIVE) mg/dL Urine Glucose (UA) (Normal) mg/dL Urine Ketones (NEGATIVE) mg/dL Urine Blood (NEGATIVE) Urine Nitrate (NEGATIVE) Urine Bilirubin (NEGATIVE) Urine Urobilinogen (0.2-1.0) mg/dL Ur Leukocyte Esterase (Negative) [place]/uL Urine RBC (Auto) (0-3) /hpf Urine Microscopic WBC (0-5) /hpf Alcohol, Quantitative (0-10) mg/dl 01/24/18 01/24/18 01/24/18 Range/Units 21:08 20:17 18:05 WBC (4.8-10.8) K/uL RBC (4.40-5.90) Mil/uL Hgb (12.0-18.0) g/dL Hct (35.0-51.0) % MCV (80.0-94.0) fl MCH (27.0-31.0) pg MCHC (33.0-37.0) g/dL RDW (11.5-14.5) % Plt Count (130-400) K/uL MPV (7.2-11.7) fl Neut % (Auto) (50.0-75.0) % Lymph % (Auto) (20.0-40.0) % [place] % (Auto) (0.0-10.0) % Eos % (Auto) (0.0-4.0) % Baso % (Auto) (0.0-2.0) % Neut # (Auto) (1.8-7.0) K/uL Lymph # (Auto) (1.0-4.3) K/uL [place] # (Auto) (0.0-0.8) K/uL Eos # (Auto) (0.0-0.7) K/uL Baso # (Auto) (0.0-0.2) K/uL pO2 (30-55) mm/Hg VBG pH (7.32-7.43) VBG pCO2 (40-60) mmHg VBG HCO3 mmol/L VBG Total CO2 (22-28) mmol/L VBG O2 Sat (Calc) (40-65) % VBG Base Excess (0.0-2.0) mmol/L VBG Potassium (3.6-5.2) mmol/L Glucose (75-110) mg/dL Lactate (0.7-2.1) mmol/L FiO2 % Crit Value Called To Crit Value Called By Crit Value Read Back Blood Gas Notified Time Sodium (132-148) mmol/l Potassium (3.6-5.0) MMOL/L Chloride (98-107) mmol/L Carbon Dioxide (22-30) mmol/L Anion Gap (10-20) BUN (9-20) mg/dl Creatinine (0.8-1.5) mg/dl Est GFR ( Amer) Est GFR (Non-Af Amer) POC Glucose (mg/dL) 172 H 185 H 339 H (65-110) mg/dL Random Glucose (75-110) mg/dL Calcium (8.4-10.2) mg/dL Phosphorus (2.5-4.5) mg/dl Magnesium (1.6-2.3) MG/DL Total Bilirubin (0.2-1.3) mg/dl AST (17-59) U/L ALT (21-72) U/L Alkaline Phosphatase (38-126) U/L Troponin I (0.00-0.120) ng/mL Total Protein (6.3-8.2) G/DL Albumin (3.5-5.0) g/dL Globulin (2.2-3.9) gm/dL Albumin/Globulin Ratio (1.0-2.1) Venous Blood Potassium (3.6-5.2) mmol/L Urine Color (YELLOW) Urine Clarity (Clear) Urine pH (5.0-8.0) Ur Specific [place] (1.003-1.030) Urine Protein (NEGATIVE) mg/dL Urine Glucose (UA) (Normal) mg/dL Urine Ketones (NEGATIVE) mg/dL Urine Blood (NEGATIVE) Urine Nitrate (NEGATIVE) Urine Bilirubin (NEGATIVE) Urine Urobilinogen (0.2-1.0) mg/dL Ur Leukocyte Esterase (Negative) [place]ra/uL Urine RBC (Auto) (0-3) /hpf Urine Microscopic WBC (0-5) /hpf Alcohol, Quantitative (0-10) mg/dl 01/24/18 01/24/18 01/24/18 Range/Units 17:40 16:32 15:42 WBC 15.1 H D (4.8-10.8) K/uL RBC 5.33 (4.40-5.90) Mil/uL Hgb 15.9 D (12.0-18.0) g/dL Hct 48.2 (35.0-51.0) % MCV 90.4 (80.0-94.0) fl MCH 29.8 (27.0-31.0) pg MCHC 32.9 L (33.0-37.0) g/dL RDW 13.3 (11.5-14.5) % Plt Count 270 D (130-400) K/uL MPV 12.5 H (7.2-11.7) fl Neut % (Auto) 73.1 (50.0-75.0) % Lymph % (Auto) 20.0 (20.0-40.0) % [place] % (Auto) 6.1 (0.0-10.0) % Eos % (Auto) 0.1 (0.0-4.0) % Baso % (Auto) 0.7 (0.0-2.0) % Neut # (Auto) 11.0 H (1.8-7.0) K/uL Lymph # (Auto) 3.0 (1.0-4.3) K/uL [place] # (Auto) 0.9 H (0.0-0.8) K/uL Eos # (Auto) 0.0 (0.0-0.7) K/uL Baso # (Auto) 0.1 (0.0-0.2) K/uL pO2 66 H (30-55) mm/Hg VBG pH 7.23 L (7.32-7.43) VBG pCO2 24 L (40-60) mmHg VBG HCO3 12.5 mmol/L VBG Total CO2 10.8 L (22-28) mmol/L VBG O2 Sat (Calc) 95.1 H (40-65) % VBG Base Excess -15.6 L (0.0-2.0) mmol/L VBG Potassium 4.0 (3.6-5.2) mmol/L Glucose 442 H* (75-110) mg/dL Lactate 1.8 (0.7-2.1) mmol/L FiO2 21.0 % Crit Value Called To Felipa duque Crit Value Called By 333 Crit Value Read Back Y Blood Gas Notified Time 1635 Sodium 135.0 (132-148) mmol/l Potassium (3.6-5.0) MMOL/L Chloride 100.0 (98-107) mmol/L Carbon Dioxide (22-30) mmol/L Anion Gap (10-20) BUN (9-20) mg/dl Creatinine (0.8-1.5) mg/dl Est GFR ( Amer) Est GFR (Non-Af Amer) POC Glucose (mg/dL) (65-110) mg/dL Random Glucose (75-110) mg/dL Calcium (8.4-10.2) mg/dL Phosphorus (2.5-4.5) mg/dl Magnesium (1.6-2.3) MG/DL Total Bilirubin (0.2-1.3) mg/dl AST (17-59) U/L ALT (21-72) U/L Alkaline Phosphatase (38-126) U/L Troponin I (0.00-0.120) ng/mL Total Protein (6.3-8.2) G/DL Albumin (3.5-5.0) g/dL Globulin (2.2-3.9) gm/dL Albumin/Globulin Ratio (1.0-2.1) Venous Blood Potassium 4.0 (3.6-5.2) mmol/L Urine Color Straw (YELLOW) Urine Clarity Clear (Clear) Urine pH 6.0 (5.0-8.0) Ur Specific [place] 1.028 (1.003-1.030) Urine Protein 100 (NEGATIVE) mg/dL Urine Glucose (UA) >=500 (Normal) mg/dL Urine Ketones 80 (NEGATIVE) mg/dL Urine Blood Negative (NEGATIVE) Urine Nitrate Negative (NEGATIVE) Urine Bilirubin Negative (NEGATIVE) Urine Urobilinogen 0.2-1.0 (0.2-1.0) mg/dL Ur Leukocyte Esterase Neg (Negative) [place]/uL Urine RBC (Auto) < 1 (0-3) /hpf Urine Microscopic WBC < 1 (0-5) /hpf Alcohol, Quantitative (0-10) mg/dl 01/24/18 01/24/18 Range/Units 15:42 15:10 WBC (4.8-10.8) K/uL RBC (4.40-5.90) Mil/uL Hgb (12.0-18.0) g/dL Hct (35.0-51.0) % MCV (80.0-94.0) fl MCH (27.0-31.0) pg MCHC (33.0-37.0) g/dL RDW (11.5-14.5) % Plt Count (130-400) K/uL MPV (7.2-11.7) fl Neut % (Auto) (50.0-75.0) % Lymph % (Auto) (20.0-40.0) % [place] % (Auto) (0.0-10.0) % Eos % (Auto) (0.0-4.0) % Baso % (Auto) (0.0-2.0) % Neut # (Auto) (1.8-7.0) K/uL Lymph # (Auto) (1.0-4.3) K/uL [place] # (Auto) (0.0-0.8) K/uL Eos # (Auto) (0.0-0.7) K/uL Baso # (Auto) (0.0-0.2) K/uL pO2 (30-55) mm/Hg VBG pH (7.32-7.43) VBG pCO2 (40-60) mmHg VBG HCO3 mmol/L VBG Total CO2 (22-28) mmol/L VBG O2 Sat (Calc) (40-65) % VBG Base Excess (0.0-2.0) mmol/L VBG Potassium (3.6-5.2) mmol/L Glucose (75-110) mg/dL Lactate (0.7-2.1) mmol/L FiO2 % Crit Value Called To Crit Value Called By Crit Value Read Back Blood Gas Notified Time Sodium 137 (132-148) mmol/l Potassium 4.8 (3.6-5.0) MMOL/L Chloride 96 L (98-107) mmol/L Carbon Dioxide 7 L* D (22-30) mmol/L Anion Gap 39 H (10-20) BUN 16 (9-20) mg/dl Creatinine 0.9 (0.8-1.5) mg/dl Est GFR ( Amer) > 60 Est GFR (Non-Af Amer) > 60 POC Glucose (mg/dL) 459 H* (65-110) mg/dL Random Glucose 534 H* D (75-110) mg/dL Calcium 9.9 (8.4-10.2) mg/dL Phosphorus (2.5-4.5) mg/dl Magnesium (1.6-2.3) MG/DL Total Bilirubin 1.1 (0.2-1.3) mg/dl AST 105 H (17-59) U/L ALT 125 H (21-72) U/L Alkaline Phosphatase 132 H (38-126) U/L Troponin I < 0.0120 (0.00-0.120) ng/mL Total Protein 10.7 H (6.3-8.2) G/DL Albumin 4.9 (3.5-5.0) g/dL Globulin 5.8 H (2.2-3.9) gm/dL Albumin/Globulin Ratio 0.8 L (1.0-2.1) Venous Blood Potassium (3.6-5.2) mmol/L Urine Color (YELLOW) Urine Clarity (Clear) Urine pH (5.0-8.0) Ur Specific [place] (1.003-1.030) Urine Protein (NEGATIVE) mg/dL Urine Glucose (UA) (Normal) mg/dL Urine Ketones (NEGATIVE) mg/dL Urine Blood (NEGATIVE) Urine Nitrate (NEGATIVE) Urine Bilirubin (NEGATIVE) Urine Urobilinogen (0.2-1.0) mg/dL Ur Leukocyte Esterase (Negative) [place]/uL Urine RBC (Auto) (0-3) /hpf Urine Microscopic WBC (0-5) /hpf Alcohol, Quantitative < 10 (0-10) mg/dl Laboratory Results - last 24 hr 01/24/18 01/24/18 01/24/18 15:10 15:42 15:42 WBC 15.1 H D RBC 5.33 Hgb 15.9 D Hct 48.2 MCV 90.4 MCH 29.8 MCHC 32.9 L RDW 13.3 Plt Count 270 D MPV 12.5 H Neut % (Auto) 73.1 Lymph % (Auto) 20.0 [place] % (Auto) 6.1 Eos % (Auto) 0.1 Baso % (Auto) 0.7 Neut # (Auto) 11.0 H Lymph # (Auto) 3.0 [place] # (Auto) 0.9 H Eos # (Auto) 0.0 Baso # (Auto) 0.1 pO2 VBG pH VBG pCO2 VBG HCO3 VBG Total CO2 VBG O2 Sat (Calc) VBG Base Excess VBG Potassium Glucose Lactate FiO2 Crit Value Called To Crit Value Called By Crit Value Read Back Blood Gas Notified Time Sodium 137 Potassium 4.8 Chloride 96 L Carbon Dioxide 7 L* D Anion Gap 39 H BUN 16 Creatinine 0.9 Est GFR ( Amer) > 60 Est GFR (Non-Af Amer) > 60 POC Glucose (mg/dL) 459 H* Random Glucose 534 H* D Calcium 9.9 Phosphorus Magnesium Total Bilirubin 1.1 AST 105 H ALT 125 H Alkaline Phosphatase 132 H Troponin I < 0.0120 Total Protein 10.7 H Albumin 4.9 Globulin 5.8 H Albumin/Globulin Ratio 0.8 L Venous Blood Potassium Urine Color Urine Clarity Urine pH Ur Specific [place] Urine Protein Urine Glucose (UA) Urine Ketones Urine Blood Urine Nitrate Urine Bilirubin Urine Urobilinogen Ur Leukocyte Esterase Urine RBC (Auto) Urine Microscopic WBC Alcohol, Quantitative < 10 01/24/18 01/24/18 01/24/18 16:32 17:40 18:05 WBC RBC Hgb Hct MCV MCH MCHC RDW Plt Count MPV Neut % (Auto) Lymph % (Auto) [place] % (Auto) Eos % (Auto) Baso % (Auto) Neut # (Auto) Lymph # (Auto) [place] # (Auto) Eos # (Auto) Baso # (Auto) pO2 66 H VBG pH 7.23 L VBG pCO2 24 L VBG HCO3 12.5 VBG Total CO2 10.8 L VBG O2 Sat (Calc) 95.1 H VBG Base Excess -15.6 L VBG Potassium 4.0 Glucose 442 H* Lactate 1.8 FiO2 21.0 Crit Value Called To [place]a [place] Crit Value Called By [place] Crit Value Read Back Y Blood Gas Notified Time 1635 Sodium 135.0 Potassium Chloride 100.0 Carbon Dioxide Anion Gap BUN Creatinine Est GFR ( Amer) Est GFR (Non-Af Amer) POC Glucose (mg/dL) 339 H Random Glucose Calcium Phosphorus Magnesium Total Bilirubin AST ALT Alkaline Phosphatase Troponin I Total Protein Albumin Globulin Albumin/Globulin Ratio Venous Blood Potassium 4.0 Urine Color Straw Urine Clarity Clear Urine pH 6.0 Ur Specific [place] 1.028 Urine Protein 100 Urine Glucose (UA) >=500 Urine Ketones 80 Urine Blood Negative Urine Nitrate Negative Urine Bilirubin Negative Urine Urobilinogen 0.2-1.0 Ur Leukocyte Esterase Neg Urine RBC (Auto) < 1 Urine Microscopic WBC < 1 Alcohol, Quantitative 01/24/18 01/24/18 01/24/18 20:17 21:08 22:04 WBC RBC Hgb Hct MCV MCH MCHC RDW Plt Count MPV Neut % (Auto) Lymph % (Auto) [place] % (Auto) Eos % (Auto) Baso % (Auto) Neut # (Auto) Lymph # (Auto) [place] # (Auto) Eos # (Auto) Baso # (Auto) pO2 VBG pH VBG pCO2 VBG HCO3 VBG Total CO2 VBG O2 Sat (Calc) VBG Base Excess VBG Potassium Glucose Lactate FiO2 Crit Value Called To Crit Value Called By Crit Value Read Back Blood Gas Notified Time Sodium Potassium Chloride Carbon Dioxide Anion Gap BUN Creatinine Est GFR ( Amer) Est GFR (Non-Af Amer) POC Glucose (mg/dL) 185 H 172 H 173 H Random Glucose Calcium Phosphorus Magnesium Total Bilirubin AST ALT Alkaline Phosphatase Troponin I Total Protein Albumin Globulin Albumin/Globulin Ratio Venous Blood Potassium Urine Color Urine Clarity Urine pH Ur Specific [place] Urine Protein Urine Glucose (UA) Urine Ketones Urine Blood Urine Nitrate Urine Bilirubin Urine Urobilinogen Ur Leukocyte Esterase Urine RBC (Auto) Urine Microscopic WBC Alcohol, Quantitative 01/24/18 01/24/18 01/25/18 22:30 23:07 00:02 WBC RBC Hgb Hct MCV MCH MCHC RDW Plt Count MPV Neut % (Auto) Lymph % (Auto) [place] % (Auto) Eos % (Auto) Baso % (Auto) Neut # (Auto) Lymph # (Auto) [place] # (Auto) Eos # (Auto) Baso # (Auto) pO2 VBG pH VBG pCO2 VBG HCO3 VBG Total CO2 VBG O2 Sat (Calc) VBG Base Excess VBG Potassium Glucose Lactate FiO2 Crit Value Called To Crit Value Called By Crit Value Read Back Blood Gas Notified Time Sodium 138 Potassium 4.0 Chloride 105 Carbon Dioxide 15 L Anion Gap 22 H BUN 13 Creatinine 0.5 L Est GFR ( Amer) > 60 Est GFR (Non-Af Amer) > 60 POC Glucose (mg/dL) 215 H 269 H Random Glucose 177 H Calcium 8.6 Phosphorus Magnesium Total Bilirubin AST ALT Alkaline Phosphatase Troponin I Total Protein Albumin Globulin Albumin/Globulin Ratio Venous Blood Potassium Urine Color Urine Clarity Urine pH Ur Specific [place] Urine Protein Urine Glucose (UA) Urine Ketones Urine Blood Urine Nitrate Urine Bilirubin Urine Urobilinogen Ur Leukocyte Esterase Urine RBC (Auto) Urine Microscopic WBC Alcohol, Quantitative 01/25/18 01/25/18 01/25/18 01:03 02:02 03:10 WBC RBC Hgb Hct MCV MCH MCHC RDW Plt Count MPV Neut % (Auto) Lymph % (Auto) [place] % (Auto) Eos % (Auto) Baso % (Auto) Neut # (Auto) Lymph # (Auto) [place] # (Auto) Eos # (Auto) Baso # (Auto) pO2 VBG pH VBG pCO2 VBG HCO3 VBG Total CO2 VBG O2 Sat (Calc) VBG Base Excess VBG Potassium Glucose Lactate FiO2 Crit Value Called To Crit Value Called By Crit Value Read Back Blood Gas Notified Time Sodium Potassium Chloride Carbon Dioxide Anion Gap BUN Creatinine Est GFR ( Amer) Est GFR (Non-Af Amer) POC Glucose (mg/dL) 224 H 208 H 170 H Random Glucose Calcium Phosphorus Magnesium Total Bilirubin AST ALT Alkaline Phosphatase Troponin I Total Protein Albumin Globulin Albumin/Globulin Ratio Venous Blood Potassium Urine Color Urine Clarity Urine pH Ur Specific [place] Urine Protein Urine Glucose (UA) Urine Ketones Urine Blood Urine Nitrate Urine Bilirubin Urine Urobilinogen Ur Leukocyte Esterase Urine RBC (Auto) Urine Microscopic WBC Alcohol, Quantitative 01/25/18 01/25/18 01/25/18 04:18 04:40 04:40 WBC 10.7 RBC 4.34 L Hgb 13.1 D Hct 39.2 MCV 90.2 MCH 30.1 MCHC 33.4 RDW 13.6 Plt Count 146 D MPV 11.9 H Neut % (Auto) 45.4 L Lymph % (Auto) 44.1 H [place] % (Auto) 9.0 Eos % (Auto) 1.1 Baso % (Auto) 0.4 Neut # (Auto) 4.9 Lymph # (Auto) 4.7 H [place] # (Auto) 1.0 H Eos # (Auto) 0.1 Baso # (Auto) 0.0 pO2 VBG pH VBG pCO2 VBG HCO3 VBG Total CO2 VBG O2 Sat (Calc) VBG Base Excess VBG Potassium Glucose Lactate FiO2 Crit Value Called To Crit Value Called By Crit Value Read Back Blood Gas Notified Time Sodium 139 Potassium 3.6 Chloride 106 Carbon Dioxide 23 Anion Gap 14 BUN 12 Creatinine 0.6 L Est GFR ( Amer) > 60 Est GFR (Non-Af Amer) > 60 POC Glucose (mg/dL) 144 H Random Glucose 147 H Calcium 8.5 Phosphorus 2.7 Magnesium 2.0 Total Bilirubin 0.7 AST 76 H D ALT 91 H D Alkaline Phosphatase 92 Troponin I Total Protein 7.7 Albumin 3.8 Globulin 3.9 Albumin/Globulin Ratio 1.0 Venous Blood Potassium Urine Color Urine Clarity Urine pH Ur Specific [place] Urine Protein Urine Glucose (UA) Urine Ketones Urine Blood Urine Nitrate Urine Bilirubin Urine Urobilinogen Ur Leukocyte Esterase Urine RBC (Auto) Urine Microscopic WBC Alcohol, Quantitative 01/25/18 01/25/18 01/25/18 05:17 06:02 06:57 WBC RBC Hgb Hct MCV MCH MCHC RDW Plt Count MPV Neut % (Auto) Lymph % (Auto) [place] % (Auto) Eos % (Auto) Baso % (Auto) Neut # (Auto) Lymph # (Auto) [place] # (Auto) Eos # (Auto) Baso # (Auto) pO2 VBG pH VBG pCO2 VBG HCO3 VBG Total CO2 VBG O2 Sat (Calc) VBG Base Excess VBG Potassium Glucose Lactate FiO2 Crit Value Called To Crit Value Called By Crit Value Read Back Blood Gas Notified Time Sodium Potassium Chloride Carbon Dioxide Anion Gap BUN Creatinine Est GFR ( Amer) Est GFR (Non-Af Amer) POC Glucose (mg/dL) 158 H 189 H 177 H Random Glucose Calcium Phosphorus Magnesium Total Bilirubin AST ALT Alkaline Phosphatase Troponin I Total Protein Albumin Globulin Albumin/Globulin Ratio Venous Blood Potassium Urine Color Urine Clarity Urine pH Ur Specific [place] Urine Protein Urine Glucose (UA) Urine Ketones Urine Blood Urine Nitrate Urine Bilirubin Urine Urobilinogen Ur Leukocyte Esterase Urine RBC (Auto) Urine Microscopic WBC Alcohol, Quantitative 01/25/18 01/25/18 08:01 09:11 WBC RBC Hgb Hct MCV MCH MCHC RDW Plt Count MPV Neut % (Auto) Lymph % (Auto) [place] % (Auto) Eos % (Auto) Baso % (Auto) Neut # (Auto) Lymph # (Auto) [place] # (Auto) Eos # (Auto) Baso # (Auto) pO2 VBG pH VBG pCO2 VBG HCO3 VBG Total CO2 VBG O2 Sat (Calc) VBG Base Excess VBG Potassium Glucose Lactate FiO2 Crit Value Called To Crit Value Called By Crit Value Read Back Blood Gas Notified Time Sodium Potassium Chloride Carbon Dioxide Anion Gap BUN Creatinine Est GFR ( Amer) Est GFR (Non-Af Amer) POC Glucose (mg/dL) 170 H 245 H Random Glucose Calcium Phosphorus Magnesium Total Bilirubin AST ALT Alkaline Phosphatase Troponin I Total Protein Albumin Globulin Albumin/Globulin Ratio Venous Blood Potassium Urine Color Urine Clarity Urine pH Ur Specific [place] Urine Protein Urine Glucose (UA) Urine Ketones Urine Blood Urine Nitrate Urine Bilirubin Urine Urobilinogen Ur Leukocyte Esterase Urine RBC (Auto) Urine Microscopic WBC Alcohol, Quantitative EKG/Cardiology Studies: Cardiology / EKG Studies 01/24/18 15:24 ELECTROCARDIOGRAM Stat Comment: Mode Of Transportation: Reason For Exam: vomit Fingerstick Blood Sugar Results: 245 Review of Systems - Review of Systems All systems: reviewed and no additional remarkable complaints except (those described on subjective) Critical Care Progress Note - Extremities/Vascular Does the Patient have a Central Venous Catheter?: No Does the Patient need a Central Venous Catheter?: No Does the Patient have a Car Catheter?: No Does the Patient need a Car Catheter?: No - Prophylaxis GI Prophylaxis GI: Not Indicated - Prophylaxis DVT Prophylaxis DVT: Lovenox - Nutrition Nutrition: Nutrition Category Date Time Status Diabetic [Consistent Carbohydrate] [DIET] Diets 01/24/18 Dinner Active Assessment/Plan - Assessment and Plan (Free Text) Assessment: 37 y/o M admitted for DKA DKA on IDDM type 2 DKA Resolved Anion gap normalized BS levels controlled No changes in mental status. Abd pain improved Levemir 8 SQ ordered Insulin drip to be stopped IV fluids switched to D51/2NS with 20 meq KCL at 80 mls Immigration Coordinator consult by PMD Home meds restarted by PMD Diabetic diet Transfer to reg floor <Kyle Parra - Last Filed: 01/25/18 22:39> CCU Subjective - Physician Review Subjective (Free Text): Attestation: Patient seen and examined at the bedside with Resident Dr. Mamie Phelps; and I agree with his outline of plans and management documented below as discussed on AM rounds reflecting my review of all applicable clinical data, and participation in the care of the patient throughout the day in ICU; today, January 25, 2018.
[2018-01-25] MEDS ORDERED: Insulin Lispro (humaLOG) 100 Units/ml Inj SC SCH (11:30)
[2018-01-25] MEDS: Insulin Lispro (humaLOG) 100 Units/ml Inj SC SCH ×3 (16:59→22:59)
[2018-01-25] MEDS: Oxycodone/Acetaminophen 5/325 mg Tab PO PRN (17:06)
[2018-01-25] MEDS: Enoxaparin 40 mg Syringe SC SCH (21:49)
[2018-01-25] MEDS ORDERED: Insulin Detemir 100 Units/ml Inj SC SCH (22:00)
[2018-01-26 07:00] LABS: ALBUMIN 3.5 g/dL (3.5-5.0); ALT/SGPT 106 U/L (21-72); AST/SGOT 84 U/L (17-59); BLOOD UREA NITROGEN 10 mg/dl (9-20); CALCIUM 8.8 mg/dL (8.4-10.2); GFR AFRICAN-AMERICAN > 60; GFR NON-AFRICAN AMERICAN > 60; HDL CHOLESTEROL 21 MG/DL (30-70)
[2018-01-26 07:11] LABS: LDL CHOLESTEROL 88 mg/dL (0-129)
--- NOTE | 2018-01-26 08:19 | CON ---
DATE: 01/25/2018 LOCATION: ICU room 430. HISTORY OF PRESENT ILLNESS: This is a 37-year-old male with known history of type 1 insulin-dependent diabetes presenting here with diffuse abdominal pain and supervening nausea, dyspepsia and vomiting over the last 2-3 days prior to admission and has been evaluated to be in diabetic ketoacidosis and dehydration and admitted to ICU for initiation of an insulin drip infusion and vigorous hydration as given. PAST MEDICAL HISTORY History of type 1 insulin-dependent diabetes, currently on Humalog given as 15 units subcu t.i.d. before meals, although admits to frequent drug omissions. He denies any use of any long-acting basal insulin at night. He is also using metformin 500 mg b.i.d. and glipizide given as 10 mg b.i.d. He admits, however, to having been given the oral agents which he takes also very erratically. History of hypertension and dyslipidemia, history of lumbar disk disease and chronic lower back pain and sciatica and has been on narcotic analgesics for pain relief. FAMILY HISTORY: Positive for diabetes, hypertension. SOCIAL HISTORY: The patient has a supportive family. No known substance use. REVIEW OF SYSTEMS: As mentioned above. Admits to generalized body weakness with easy fatigability and tiredness and suboptimal energy level. Also admits to dizziness and lightheadedness, worse in the last few days prior to admission. Lolis Goss MD
[2018-01-26] MEDS: Insulin Lispro (humaLOG) 100 Units/ml Inj SC SCH ×6 (08:28→22:40)
[2018-01-26] MEDS: Oxycodone/Acetaminophen 5/325 mg Tab PO PRN ×2 (10:14→23:33)
--- NOTE | 2018-01-26 10:43 | CON ---
DATE: 01/25/2018 LOCATION: ICU, room 430. HISTORY OF PRESENT ILLNESS: This is a 37-year-old male with known history of type 1 insulin-dependent diabetes presenting here with diffuse abdominal pain and supervening nausea, dyspepsia and vomiting over the last 2-3 days prior to admission and has been evaluated to be in diabetic ketoacidosis and dehydration and admitted to ICU for initiation of an insulin drip infusion and vigorous hydration as given. PAST MEDICAL HISTORY History of type 1 insulin-dependent diabetes, currently on Humalog given as 15 units subcu t.i.d. before meals, although admits to frequent drug omissions. He denies any use of any long-acting basal insulin at night. He is also using metformin 500 mg b.i.d. and glipizide given as 10 mg b.i.d. He admits, however, to having been given the oral agents which he takes also very erratically. History of hypertension and dyslipidemia, history of lumbar disk disease and chronic lower back pain and sciatica and has been on narcotic analgesics for pain relief. FAMILY HISTORY: Positive for diabetes, hypertension. SOCIAL HISTORY: The patient has a supportive family. No known substance use. REVIEW OF SYSTEMS: As mentioned above. Admits to generalized body weakness with easy fatigability and tiredness and suboptimal energy level. Also admits to dizziness and lightheadedness, worse in the last few days prior to admission. REVIEW OF SYSTEMS: No chest pains or palpitations or PNDs. Also admits to occasional bouts of shortness of breath especially on exertion. His oral intake has been variable with nausea, dyspepsia and diffuse upper abdominal pain with supervening intractable vomiting episodes. Also admits to marked polyuria, nocturia, polydipsia, especially worse on the day of admission. PHYSICAL EXAMINATION: GENERAL: This is an average built male in no apparent distress. VITAL SIGNS: Blood pressure of 140/80, pulse of 70 beats per minute regular, temperature 98, respirations 20, height is 5 feet 7 inches, weight is 190 pounds. HEENT: Head normocephalic. Eyes anicteric with pink conjunctivae. Funduscopy not possible at this time. Ears, nose and throat otherwise normal. NECK: Supple. Thyroid gland is normal in size. No carotid bruits or cervical adenopathy. CARDIOPULMONARY: Some adynamic precordium. S1, S2 are rapid and regular. LUNGS: Clear to auscultation. ABDOMEN: Flat, soft with positive bowel sounds. EXTREMITIES: No peripheral edema. Pulses are +2 bilaterally. LABORATORY DATA: The initial chemistries showed a BUN of 16, sodium 137, potassium 4.8, chloride 96, CO2 of 7, glucose is 534 and creatinine is 0.9. His subsequent glucose levels have improved and today's glucose values have ranged from 170 to 245 and 311 mg/dL. ASSESSMENT: This is a 37-year-old male with uncontrolled and decompensated type 1 insulin-dependent diabetes presenting here with diabetic ketoacidosis and dehydration and is now being referred for diabetic evaluation and management. With a significant history of extremes of glycemic fluctuations and frequent bouts of diabetic ketoacidosis, there is really no role at this time for oral hypoglycemic therapy as he clearly is insulin dependent with exhausted endogenous pancreatic reserve. PLAN OF MANAGEMENT: We will discontinue the dual oral hypoglycemic therapy with metformin and glipizide as ordered. We will switch him over to a more physiologic basal and bolus insulin drug combination to start today. We will lower the Humalog to 12 units subcu t.i.d. before meals to start at dinnertime today as ordered. We will also modify the coverage scale to obviate hypoglycemia and detailed orders have been given. We will add basal insulin with Levemir to be given as 30 units subcu at bedtime daily to start tonight. We will titrate incremental as indicated to optimize metabolic control. We will add a hemoglobin A1c for tomorrow laboratory request to confirm his prior poor glycemic control and also baseline thyroid studies and a lipid panel accordingly. We will reinforce diabetic education and dietary instructions at the time of this admission. We will also add a serum C-peptide to confirm the presence of extremely low endogenous pancreatic reserve. We will follow. Lolis Goss MD
[2018-01-26 12:27] VITALS: BMI 29.7
--- NOTE | 2018-01-26 12:45 | CP.PCM.PN ---
Subjective - Date & Time of Evaluation Date of Evaluation: 01/26/18 Time of Evaluation: 12:45 - Subjective Subjective: CLINICALLY IMPROVING S.GLU BETTER CONTROLLED ON INSULIN Objective - Vital Signs/Intake and Output Vital Signs (last 24 hours): Temp Pulse Resp BP Pulse Ox 97.3 F L 84 20 157/80 H 98 01/26/18 08:39 01/26/18 08:39 01/26/18 08:39 01/26/18 08:39 01/26/18 08:39 - Medications Medications: Current Medications Atorvastatin Calcium (Lipitor) 10 mg PO DAILY [facility] Last Admin: 01/26/18 08:33 Dose: 10 mg Clonidine HCl (Catapres) 0.2 mg PO Q8 PRN PRN Reason: WITHDRAWAL SYMPTOMS Cyclobenzaprine HCl (Flexeril) 10 mg PO Q8 [facility] Last Admin: 01/26/18 08:33 Dose: 10 mg Dextrose (Dextrose 50% Inj) 0 ml IV STAT PRN; Protocol PRN Reason: Hypoglycemia Protocol Dextrose (Glutose 15) 0 gm PO ONCE PRN; Protocol PRN Reason: Hypoglycemia Protocol Duloxetine HCl (Cymbalta) 60 mg PO HS [facility] Last Admin: 01/25/18 21:48 Dose: 60 mg Enoxaparin Sodium (Lovenox) 40 mg SC [facility] PRN Reason: Protocol Last Admin: 01/25/18 21:49 Dose: 40 mg Glucagon (Glucagen Diagnostic Kit) 0 mg IM STAT PRN; Protocol PRN Reason: Hypoglycemia Protocol Ibuprofen (Motrin Tab) 800 mg PO Q8 [facility] Last Admin: 01/26/18 08:34 Dose: 800 mg Insulin Detemir (Levemir) 30 units SC HS [facility] Last Admin: 01/25/18 22:02 Dose: 30 units Insulin Human Lispro (Humalog) 12 units SC ACTID [facility] Last Admin: 01/26/18 12:28 Dose: 12 u Insulin Human Lispro (Humalog) 0 units SC ACHS [facility] Last Admin: 01/26/18 12:32 Dose: Not Given Morphine Sulfate (Morphine) 2 mg IVP Q4 PRN PRN Reason: Pain, severe (8-10) Last Admin: 01/26/18 08:30 Dose: 2 mg Ondansetron HCl (Zofran Inj) 4 mg IVP Q6 PRN PRN Reason: Nausea/Vomiting Oxycodone/Acetaminophen (Percocet 5/325 Mg Tab) 1 tab PO Q6 PRN PRN Reason: Pain, moderate (4-7) Stop: 01/27/18 19:50 Last Admin: 01/26/18 10:14 Dose: 1 tab Pregabalin (Lyrica) 75 mg PO Q12H [facility] Last Admin: 01/26/18 10:15 Dose: 75 mg - Labs Labs: 01/25/18 04:40 01/26/18 06:42 - Constitutional Appears: No Acute Distress - Head Exam Head Exam: ATRAUMATIC, NORMAL INSPECTION, NORMOCEPHALIC - Eye Exam Eye Exam: EOMI, Normal appearance, PERRL Pupil Exam: NORMAL ACCOMODATION, PERRL - ENT Exam ENT Exam: Mucous Membranes Moist, Normal Exam - Neck Exam Neck Exam: Full ROM, Normal Inspection. absent: Lymphadenopathy - Respiratory Exam Respiratory Exam: Clear to Ausculation Bilateral, NORMAL BREATHING PATTERN - Cardiovascular Exam Cardiovascular Exam: REGULAR RHYTHM, +S1, +S2. absent: Murmur - GI/Abdominal Exam GI & Abdominal Exam: Soft, Normal Bowel Sounds. absent: Tenderness - Rectal Exam Rectal Exam: NORMAL INSPECTION - Extremities Exam Extremities Exam: Full ROM, Normal Capillary Refill, Normal Inspection. absent : Joint Swelling, Pedal Edema - Back Exam Back Exam: NORMAL INSPECTION - Neurological Exam Neurological Exam: Alert, Awake, CN II-XII Intact, Normal Gait, Oriented x3 - Psychiatric Exam Psychiatric exam: Normal Affect, Normal Mood - Skin Skin Exam: Dry, Intact, Normal Color, Warm Assessment and Plan - Assessment and Plan (Free Text) Assessment: DKA IMPROVING HTN IMPROVED DEHYDRATION Plan: CONTINUE PRESENT RX WILL D/C IN AM IF STABLE
[2018-01-26] MEDS ORDERED: Insulin Lispro (humaLOG) 100 Units/ml Inj SC SCH (16:30)
[2018-01-26] MEDS: Enoxaparin 40 mg Syringe SC SCH (21:31)
[2018-01-26] MEDS ORDERED: Insulin Detemir 100 Units/ml Inj SC SCH (22:00)
--- NOTE | 2018-01-27 02:27 | PN ---
DATE: 01/26/2018 LOCATION: Room 657. This is a 37-year-old male with recent uncontrolled type 1 insulin-dependent diabetes presenting here with diabetic ketoacidosis and dehydration and received vigorous IV hydration and intensive insulin therapy as given. His glycemic fluctuations continue as noted, and today's glucose values have ranged from 279 to 293 mg/dL. His latest chemistry showed a BUN of 10, sodium 136, potassium 3.7, chloride 104, CO2 of 22, glucose 266, and creatinine 0.5. His hemoglobin A1c is 15.2% which is clearly elevated and indicative of suboptimal metabolic control of his diabetic condition. So at this time, we will modify once again his basal and bolus insulin regimen and increase the Levemir to 40 units subcu at bedtime daily to start tonight. We will also increase the Humalog to 14 units subcu t.i.d. before meals to start today as ordered. We will add fenofibrate at 145 mg daily as ordered. We will obtain serial chemistries and supplement accordingly needed. We will follow with you. Lolis Goss MD
[2018-01-27] MEDS: Insulin Lispro (humaLOG) 100 Units/ml Inj SC SCH ×7 (08:45→21:19)
[2018-01-27] MEDS: Oxycodone/Acetaminophen 5/325 mg Tab PO PRN (08:54)
--- NOTE | 2018-01-27 10:31 | CP.PCM.PN ---
Subjective - Date & Time of Evaluation Date of Evaluation: 01/27/18 Time of Evaluation: 10:34 - Subjective Subjective: clCLINICALLY IMPROVING SERUM GLUCOSE STILL POORLY CONTROLLED-->300 Objective - Vital Signs/Intake and Output Vital Signs (last 24 hours): Temp Pulse Resp BP Pulse Ox 97.4 F L 71 19 142/83 97 01/27/18 08:45 01/27/18 08:45 01/27/18 08:45 01/27/18 08:45 01/27/18 08:45 - Medications Medications: Current Medications Amlodipine Besylate (Norvasc) 10 mg PO DAILY [facility] Last Admin: 01/27/18 08:44 Dose: 10 mg Atorvastatin Calcium (Lipitor) 40 mg PO DAILY [facility] Last Admin: 01/27/18 10:18 Dose: 40 mg Cyclobenzaprine HCl (Flexeril) 10 mg PO Q8 [facility] Last Admin: 01/27/18 08:44 Dose: 10 mg Dextrose (Dextrose 50% Inj) 0 ml IV STAT PRN; Protocol PRN Reason: Hypoglycemia Protocol Dextrose (Glutose 15) 0 gm PO ONCE PRN; Protocol PRN Reason: Hypoglycemia Protocol Duloxetine HCl (Cymbalta) 60 mg PO HS [facility] Last Admin: 01/26/18 21:31 Dose: 60 mg Enoxaparin Sodium (Lovenox) 40 mg SC HS [facility] PRN Reason: Protocol Last Admin: 01/26/18 21:31 Dose: 40 mg Fenofibrate (Tricor) 145 mg PO DAILY [facility] Last Admin: 01/27/18 08:47 Dose: 145 mg Glucagon (Glucagen Diagnostic Kit) 0 mg IM STAT PRN; Protocol PRN Reason: Hypoglycemia Protocol Ibuprofen (Motrin Tab) 800 mg PO Q8 [facility] Last Admin: 01/27/18 08:46 Dose: 800 mg Insulin Detemir (Levemir) 40 units SC HS [facility] Last Admin: 01/26/18 21:32 Dose: 40 units Insulin Human Lispro (Humalog) 0 units SC ACHS [facility] Last Admin: 01/27/18 08:46 Dose: 3 units Insulin Human Lispro (Humalog) 18 units SC ACTID [facility] Last Admin: 01/27/18 08:45 Dose: 18 units Morphine Sulfate (Morphine) 2 mg IVP Q4 PRN PRN Reason: Pain, severe (8-10) Last Admin: 01/27/18 07:52 Dose: 2 mg Ondansetron HCl (Zofran Inj) 4 mg IVP Q6 PRN PRN Reason: Nausea/Vomiting Oxycodone/Acetaminophen (Percocet 5/325 Mg Tab) 1 tab PO Q6 PRN PRN Reason: Pain, moderate (4-7) Stop: 01/27/18 19:50 Last Admin: 01/27/18 08:54 Dose: 1 tab Pregabalin (Lyrica) 75 mg PO Q12H [facility] Last Admin: 01/27/18 08:53 Dose: 75 mg - Labs Labs: 01/25/18 04:40 01/26/18 06:42 - Constitutional Appears: Well - Head Exam Head Exam: ATRAUMATIC, NORMAL INSPECTION, NORMOCEPHALIC - Eye Exam Eye Exam: EOMI, Normal appearance, PERRL Pupil Exam: NORMAL ACCOMODATION, PERRL - ENT Exam ENT Exam: Mucous Membranes Moist, Normal Exam - Neck Exam Neck Exam: Full ROM, Normal Inspection. absent: Lymphadenopathy - Respiratory Exam Respiratory Exam: Clear to Ausculation Bilateral, NORMAL BREATHING PATTERN - Cardiovascular Exam Cardiovascular Exam: REGULAR RHYTHM, +S1, +S2. absent: Murmur - GI/Abdominal Exam GI & Abdominal Exam: Soft, Normal Bowel Sounds. absent: Tenderness - Rectal Exam Rectal Exam: NORMAL INSPECTION - Extremities Exam Extremities Exam: Full ROM, Normal Capillary Refill, Normal Inspection. absent : Joint Swelling, Pedal Edema - Back Exam Back Exam: NORMAL INSPECTION - Neurological Exam Neurological Exam: Alert, Awake, CN II-XII Intact, Normal Gait, Oriented x3 - Psychiatric Exam Psychiatric exam: Normal Affect, Normal Mood - Skin Skin Exam: Dry, Intact, Normal Color, Warm Assessment and Plan - Assessment and Plan (Free Text) Assessment: DKA PERSISTENT HYPERGLYCEMIA METABOLIC SYNDRME HTN HYPERLIPIDEMIA Plan: ADJUST INSULIN COVERAGE D/C HOME IN AM IF STABLE
[2018-01-27 11:42] LABS: C-PEPTIDE 1.85 ng/mL (0.80-3.85)
[2018-01-27] MEDS: Enoxaparin 40 mg Syringe SC SCH (21:18)
[2018-01-27] MEDS ORDERED: Insulin Detemir 100 Units/ml Inj SC SCH (22:00)
--- NOTE | 2018-01-27 23:47 | PN ---
DATE: 01/27/2018 LOCATION: Room 657. SUBJECTIVE: This is a 37-year-old male with recent uncontrolled type 1 insulin-dependent diabetes presenting here with diabetic ketoacidosis and dehydration and continues to have glycemic fluctuations despite the day to day insulin dose adjustments as given. His glucose levels overnight have ranged from 242-287 and 318 mg/dL. LABORATORY DATA: His latest chemistries showed a BUN of 10, sodium 136, potassium 3.7, chloride 104, CO2 22, glucose 266 and creatinine 0.5. His hemoglobin A1c is 15.2% which is clearly elevated and indicative of suboptimal metabolic control of his diabetic condition even prior to this admission. ASSESSMENT AND PLAN: So at this time, we will modify once again his basal and bolus insulin regimen to a higher dose titration and increase the Humalog to 20 units subcu t.i.d. before meals to start at dinnertime today as ordered. We will also titrate his Levemir given at 46 units subcu at bedtime daily to start tonight. We will continue the low-dose correction scale using Humalog insulin as given. His actual C-peptide came back as 1.85 which is really very low and expected with the very nil endogenous pancreatic reserve and clearly will be insulin-requiring, eventually insulin dependent at this time. We will also continue the IV hydration as given and obtain serial chemistries and supplement accordingly as needed. We will follow. Lolis Goss MD
[2018-01-28 07:50] VITALS: BP 146/85; PULSE 66; RESP 20; TEMP 98; O2SAT 96
[2018-01-28] MEDS: Insulin Lispro (humaLOG) 100 Units/ml Inj SC SCH ×4 (08:24→12:08)
--- NOTE | 2018-01-28 09:45 | CP.PCM.DIS ---
Provider - Provider Date of Admission: 01/24/18 16:43 Attending physician: Mo Canas MD Time Spent in preparation of Discharge (in minutes): 35 Diagnosis - Discharge Diagnosis (1) DKA (diabetic ketoacidoses) Status: Acute (2) Back pain Status: Acute (3) Dehydration Status: Acute (4) Diabetic complication Status: Acute (5) Disc disorder Status: Acute (6) Hyperglycemia Status: Acute (7) Hyperlipidemia associated with type 2 diabetes mellitus Status: Acute (8) Hypertension Status: Acute (9) Lumbar back pain with radiculopathy affecting right lower extremity Status: Acute (10) Lumbar radiculopathy Status: Acute (11) S/P laminectomy Status: Acute (12) Poor compliance Status: Acute Hospital Course - Lab Results Lab Results: Micro Results 01/25/18 19:35 Nose MRSA Culture (Admit) - Final MRSA NOT DETECTED 01/24/18 07:35 Naris MRSA Culture (Admit) - Final MRSA NOT DETECTED Most Recent Lab Values WBC 10.7 K/uL (4.8-10.8) 01/25/18 04:40 RBC 4.34 Mil/uL (4.40-5.90) L 01/25/18 04:40 Hgb 13.1 g/dL (12.0-18.0) D 01/25/18 04:40 Hct 39.2 % (35.0-51.0) 01/25/18 04:40 MCV 90.2 fl (80.0-94.0) 01/25/18 04:40 MCH 30.1 pg (27.0-31.0) 01/25/18 04:40 MCHC 33.4 g/dL (33.0-37.0) 01/25/18 04:40 RDW 13.6 % (11.5-14.5) 01/25/18 04:40 Plt Count 146 K/uL (130-400) D 01/25/18 04:40 MPV 11.9 fl (7.2-11.7) H 01/25/18 04:40 Neut % (Auto) 45.4 % (50.0-75.0) L 01/25/18 04:40 Lymph % (Auto) 44.1 % (20.0-40.0) H 01/25/18 04:40 [place] % (Auto) 9.0 % (0.0-10.0) 01/25/18 04:40 Eos % (Auto) 1.1 % (0.0-4.0) 01/25/18 04:40 Baso % (Auto) 0.4 % (0.0-2.0) 01/25/18 04:40 Neut # (Auto) 4.9 K/uL (1.8-7.0) 01/25/18 04:40 Lymph # (Auto) 4.7 K/uL (1.0-4.3) H 01/25/18 04:40 Labette # (Auto) 1.0 K/uL (0.0-0.8) H 01/25/18 04:40 Eos # (Auto) 0.1 K/uL (0.0-0.7) 01/25/18 04:40 Baso # (Auto) 0.0 K/uL (0.0-0.2) 01/25/18 04:40 pO2 66 mm/Hg (30-55) H 01/24/18 16:32 VBG pH 7.23 (7.32-7.43) L 01/24/18 16:32 VBG pCO2 24 mmHg (40-60) L 01/24/18 16:32 VBG HCO3 12.5 mmol/L 01/24/18 16:32 VBG Total CO2 10.8 mmol/L (22-28) L 01/24/18 16:32 VBG O2 Sat (Calc) 95.1 % (40-65) H 01/24/18 16:32 VBG Base Excess -15.6 mmol/L (0.0-2.0) L 01/24/18 16:32 VBG Potassium 4.0 mmol/L (3.6-5.2) 01/24/18 16:32 Sodium 135.0 mmol/L (132-148) 01/24/18 16:32 Chloride 100.0 mmol/L (98-107) 01/24/18 16:32 Glucose 442 mg/dL (75-110) H* 01/24/18 16:32 Lactate 1.8 mmol/L (0.7-2.1) 01/24/18 16:32 FiO2 21.0 % 01/24/18 16:32 Crit Value Called To Felipa duque 01/24/18 16:32 Crit Value Called By 333 01/24/18 16:32 Crit Value Read Back Y 01/24/18 16:32 Blood Gas Notified Time 1635 01/24/18 16:32 Sodium 136 mmol/l (132-148) 01/26/18 06:42 Potassium 3.7 MMOL/L (3.6-5.0) 01/26/18 06:42 Chloride 104 mmol/L (98-107) 01/26/18 06:42 Carbon Dioxide 22 mmol/L (22-30) 01/26/18 06:42 Anion Gap 14 (10-20) 01/26/18 06:42 BUN 10 mg/dl (9-20) 01/26/18 06:42 Creatinine 0.5 mg/dl (0.8-1.5) L 01/26/18 06:42 Est GFR ( Amer) > 60 01/26/18 06:42 Est GFR (Non-Af Amer) > 60 01/26/18 06:42 POC Glucose (mg/dL) 235 mg/dL (65-110) H 01/28/18 06:22 Random Glucose 266 mg/dL (75-110) H 01/26/18 06:42 Hemoglobin A1c 15.2 % (4.2-6.5) H 01/26/18 06:42 C-Peptide 1.85 ng/mL (0.80-3.85) 01/26/18 06:42 Calcium 8.8 mg/dL (8.4-10.2) 01/26/18 06:42 Phosphorus 2.7 mg/dl (2.5-4.5) 01/25/18 04:40 Magnesium 2.0 MG/DL (1.6-2.3) 01/25/18 04:40 Total Bilirubin 0.7 mg/dl (0.2-1.3) 01/26/18 06:42 AST 84 U/L (17-59) H 01/26/18 06:42 ALT 106 U/L (21-72) H 01/26/18 06:42 Alkaline Phosphatase 86 U/L (38-126) 01/26/18 06:42 Troponin I < 0.0120 ng/mL (0.00-0.120) 01/24/18 15:42 Total Protein 7.1 G/DL (6.3-8.2) 01/26/18 06:42 Albumin 3.5 g/dL (3.5-5.0) 01/26/18 06:42 Globulin 3.6 gm/dL (2.2-3.9) 01/26/18 06:42 Albumin/Globulin Ratio 1.0 (1.0-2.1) 01/26/18 06:42 Triglycerides 1342 mg/DL (0-149) H 01/26/18 06:42 Cholesterol 394 mg/dL (0-199) H 01/26/18 06:42 LDL Cholesterol Direct 88 mg/dL (0-129) 01/26/18 06:42 HDL Cholesterol 21 MG/DL (30-70) L 01/26/18 06:42 TSH 3rd Generation 0.38 mIU/ML (0.46-4.68) L 01/26/18 06:42 Venous Blood Potassium 4.0 mmol/L (3.6-5.2) 01/24/18 16:32 Urine Color Straw (YELLOW) 01/24/18 17:40 Urine Clarity Clear (Clear) 01/24/18 17:40 Urine pH 6.0 (5.0-8.0) 01/24/18 17:40 Ur Specific [place] 1.028 (1.003-1.030) 01/24/18 17:40 Urine Protein 100 mg/dL (NEGATIVE) 01/24/18 17:40 Urine Glucose (UA) >=500 mg/dL (Normal) 01/24/18 17:40 Urine Ketones 80 mg/dL (NEGATIVE) 01/24/18 17:40 Urine Blood Negative (NEGATIVE) 01/24/18 17:40 Urine Nitrate Negative (NEGATIVE) 01/24/18 17:40 Urine Bilirubin Negative (NEGATIVE) 01/24/18 17:40 Urine Urobilinogen 0.2-1.0 mg/dL (0.2-1.0) 01/24/18 17:40 Ur Leukocyte Esterase Neg Isidra/uL (Negative) 01/24/18 17:40 Urine RBC (Auto) < 1 /hpf (0-3) 01/24/18 17:40 Urine Microscopic WBC < 1 /hpf (0-5) 01/24/18 17:40 Alcohol, Quantitative < 10 mg/dl (0-10) 01/24/18 15:42 - Hospital Course Hospital Course: CLINICALLY IMPROVED S.GLU BETTER CONTROLLED Discharge Exam - Head Exam Head Exam: ATRAUMATIC, NORMAL INSPECTION, NORMOCEPHALIC - Eye Exam Eye Exam: EOMI, Normal appearance, PERRL Pupil Exam: NORMAL ACCOMODATION, PERRL - GI/Abdominal Exam GI & Abdominal Exam: Normal Bowel Sounds - Rectal Exam Rectal Exam: NORMAL INSPECTION - Neurological Exam Neurological exam: Alert, CN II-XII Intact, Normal Gait, Oriented x3, Reflexes Normal - Psychiatric Exam Psychiatric exam: Normal Affect, Normal Mood - Skin Skin Exam: Dry, Intact, Normal Color, Warm Discharge Plan - Discharge Medications Prescriptions: Insulin Detemir [Levemir] 46 units SC HS 30 Days #1 vial Atorvastatin [Lipitor] 40 mg PO DAILY #30 tab amLODIPine [Norvasc] 10 mg PO DAILY #30 tab Fenofibrate [Tricor] 145 mg PO DAILY #30 tab - Follow Up Plan Condition: FAIR Disposition: HOME/ ROUTINE Patient education suggested?: Yes Instructions: Diabetes Exchange Diet, Diabetic Ketoacidosis (DC) Additional Instructions: follow up with primary MD 1 week Referrals: Lolis Goss MD [Medical Doctor] - Edouard Arora MD [Staff Provider] - Mo Canas MD [Family Provider] -
[2018-01-28] MEDS ORDERED: Insulin Detemir 100 Units/ml Inj SC SCH (22:00)
--- NOTE | 2018-01-29 08:46 | PN ---
DATE: 01/18/2018 ENDO FOLLOWUP NOTE In Room 657. This is a 37-year-old male with history of uncontrolled type 1 insulin dependent diabetes, presenting here with diabetic ketoacidosis and dehydration and is now being followed closely for metabolic management. His glycemic levels are fluctuating as noted. His glucose values overnight have ranged from 210 to 235 and 393 mg/dL. His latest chemistries showed a BUN of 10, sodium 136, potassium 3.7, chloride 104, CO2 24, glucose 210. At this time, we will continue to modified basal and bolus insulin regimen to optimize metabolic control. Will titrate his Humalog given as 20 units subcu t.i.d. before meals as prescribed to start today. We will titrate also the basal insulin to a higher dosing of Levemir to be given as 60 units subcu at bedtime daily as prescribed tonight. We will titrate and accordingly.. We will obtain serum chemistries and follow him accordingly as needed. We will follow with him. Lolis Goss MD MTDJake
== END 2018-01-28 12:40 | disposition home or self-care (01) | DRG 294 ==
LOC: H.ER 14:55 → H.ERHOLD 16:43 → H.ICU/CCU 19:09 → H.MEDSURG1 01-25 17:42
PROVIDERS: ADMIT Internal Medicine Pulmonary Disease; ATTEND Internal Medicine Pulmonary Disease
DX: E11.10 Type 2 diabetes mellitus with ketoacidosis without coma (principal); E86.0 Dehydration; E78.00 Pure hypercholesterolemia, unspecified; E78.5 Hyperlipidemia, unspecified; G89.29 Other chronic pain; I10 Essential (primary) hypertension; M54.16 Radiculopathy, lumbar region; M54.30 Sciatica, unspecified side; Z79.4 Long term (current) use of insulin; F32.9 Major depressive disorder, single episode, unspecified; M19.90 Unspecified osteoarthritis, unspecified site; M51.9 Unspecified thoracic, thoracolumbar and lumbosacral intervertebral disc disorder

== ENCOUNTER 2018-06-14 12:44 | Emergency (ER) | payer BC, OTHER ==
[2018-06-14 12:44] VITALS: BMI 30.5
--- NOTE | 2018-06-14 14:37 | ED PDOC ---
HPI: Abdomen Time Seen by Provider: 06/14/18 12:48 Chief Complaint (Nursing): Abdominal Pain Chief Complaint (Provider): abdominal pain History Per: Patient History/Exam Limitations: no limitations Onset/Duration Of Symptoms: Days (x2) Current Symptoms Are (Timing): Still Present Location Of Pain/Discomfort: LLQ Associated Symptoms: Nausea (mild), Diarrhea. denies: Fever, Chills, Vomiting, Urinary Symptoms Additional Complaint(s): Stuart Rosales is a 37 year old male, with a past medical history of diabetes, who presents to the emergency department complaining of LLQ abdominal pain associated with diarrhea and mild nausea onset for x2 days. Patient denies any fever, chills, vomiting, blood in stool or urinary symptoms. No further medical complaints. PMD: Mo Canas I Past Medical History Reviewed: Historical Data, Nursing Documentation, Vital Signs Vital Signs: Last Vital Signs Temp 98.5 F 06/14/18 12:57 Pulse 106 H 06/14/18 12:57 Resp 20 06/14/18 12:57 BP 149/97 H 06/14/18 12:57 Pulse Ox 97 06/14/18 12:57 - Medical History PMH: Arthritis, Back Problems (SCIATICA), Depression, Diabetes (type II), HTN, Hypercholesterolemia Denies: Anxiety, Bipolar Disorder, HIV, Personality Disorder, Post Traumatic Stress Disorder, Chronic Kidney Disease, Schizophrenia - Surgical History Surgical History: Back Surgery - Family History Family History: States: Unknown Family Hx - Immunization History Hx Tetanus Toxoid Vaccination: No Hx Influenza Vaccination: No Hx Pneumococcal Vaccination: No - Home Medications Home Medications: Ambulatory Orders Medication Instructions Recorded Cyclobenzaprine [Flexeril] 10 mg PO Q8 01/24/18 DULoxetine [Cymbalta] 60 mg PO HS 01/24/18 Ibuprofen [Motrin Tab] 800 mg PO Q8 PRN 01/24/18 Pregabalin [Lyrica] 75 mg PO Q12 01/24/18 oxyCODONE/Acetaminophen [Percocet 1 tab PO Q6 PRN 01/24/18 5/325 mg Tab] Atorvastatin [Lipitor] 40 mg PO DAILY #30 tab 01/28/18 Fenofibrate [Tricor] 145 mg PO DAILY #30 tab 01/28/18 Insulin Detemir [Levemir] 46 units SC HS 30 Days #1 vial 01/28/18 amLODIPine [Norvasc] 10 mg PO DAILY #30 tab 01/28/18 Acetaminophen with Codeine 1 tab PO Q8H #10 tab 06/14/18 [Tylenol with Codeine No. 3 300 mg-30 mg] Dicyclomine [Dicyclomine HCl] 10 mg PO Q8 #10 cap 06/14/18 - Allergies Allergies/Adverse Reactions: Allergies Allergy/AdvReac Type Severity Reaction Status Date / Time No Known Allergies Allergy Verified 06/14/18 12:57 Review of Systems ROS Statement: Except As Marked, All Systems Reviewed And Found Negative Constitutional: Negative for: Fever, Chills Gastrointestinal: Positive for: Nausea (mild), Abdominal Pain, Diarrhea. Negative for: Vomiting, Hematochezia Genitourinary Male: Negative for: Dysuria, Frequency, Incontinence, Hematuria Physical Exam - Reviewed Nursing Documentation Reviewed: Yes Vital Signs Reviewed: Yes - Physical Exam Appears: Positive for: No Acute Distress Head Exam: Positive for: ATRAUMATIC, NORMAL INSPECTION, NORMOCEPHALIC Skin: Positive for: Normal Color, Warm, Dry Eye Exam: Positive for: Normal appearance, EOMI, PERRL Neck: Positive for: Normal, Painless ROM Cardiovascular/Chest: Positive for: Regular Rate, Rhythm. Negative for: Murmur Respiratory: Positive for: Normal Breath Sounds. Negative for: Respiratory Distress Gastrointestinal/Abdominal: Positive for: Tenderness (mild LLQ) Back: Positive for: Normal Inspection. Negative for: L CVA Tenderness, R CVA Tenderness, Vertebral Tenderness Extremity: Positive for: Normal ROM (upper and lower extremities). Negative for : Deformity, Swelling Neurologic/Psych: Positive for: Alert, Oriented - Laboratory Results Result Diagrams: 06/14/18 14:40 06/14/18 14:40 - ECG O2 Sat by Pulse Oximetry: 97 (RA) Pulse Ox Interpretation: Normal Medical Decision Making Medical Decision Making: Time: 12:48 Initial Plan: --Abd & Pelvis IV Contrast only [CT] --CMP --Urine dipstick --CBC w/ differential --Bentyl 10 mg PO --Sodium Chloride 1,000 ml IV 100 mls/hr --Reevaluation Scribe Attestation: Documented by Armaan Pryor, acting as a scribe for Martin Child MD. Provider Scribe Attestation: All medical record entries made by the Scribe were at my direction and personally dictated by me. I have reviewed the chart and agree that the record accurately reflects my personal performance of the history, physical exam, medical decision making, and the department course for this patient. I have also personally directed, reviewed, and agree with the discharge instructions and disposition. Disposition - Clinical Impression Clinical Impression: Diverticulosis - Patient ED Disposition Is Patient to be Admitted: No Counseled Patient/Family Regarding: Studies Performed, Diagnosis, Need For Followup, Rx Given - Disposition Referrals: Elias Mcbride MD, PhD [Staff Provider] - Mo Canas MD [Family Provider] - Disposition: Routine/Home Disposition Time: 16:54 Condition: FAIR Prescriptions: Acetaminophen with Codeine [Tylenol with Codeine No. 3 300 mg-30 mg] 1 tab PO Q8H #10 tab Dicyclomine [Dicyclomine HCl] 10 mg PO Q8 #10 cap Instructions: Diverticulosis Forms: [facility] (Mozambican)
[2018-06-14] MEDS: Sodium Chloride 0.9% 1,000 ML IV STA (14:45)
[2018-06-14 14:56] LABS: BASO # 0.1 K/uL (0.0-0.2); BASO % 0.6 % (0.0-2.0); EOS # 0.1 K/uL (0.0-0.7); EOS % 0.5 % (0.0-4.0); HEMOGLOBIN 14.6 g/dL (12.0-18.0); LYMPH # 3.8 K/uL (1.0-4.3); LYMPH % 36.2 % (20.0-40.0); MEAN CELL VOLUME 91.3 fl (80.0-94.0); MEAN CORPUSCULAR HEMOGLOBIN 30.3 pg (27.0-31.0); MEAN CORPUSCULAR HGB CONC 33.2 g/dL (33.0-37.0); MEAN PLATELET VOLUME 11.6 fl (7.2-11.7); MONO # 0.8 K/uL (0.0-0.8); MONO % 7.8 % (0.0-10.0); NEUT # 5.7 K/uL (1.8-7.0); NEUT % 54.9 % (50.0-75.0); NRBC % 0.2 % (0.0-0.0); RBC 4.81 Mil/uL (4.40-5.90); RED CELL DISTRIBUTION WIDTH 12.9 % (11.5-14.5); WHITE BLOOD COUNT 10.4 K/uL (4.8-10.8)
[2018-06-14 15:11] LABS: ALB/GLOB RATIO 1.1 (1.0-2.1); ALBUMIN 4.7 g/dL (3.5-5.0); ALT/SGPT 52 U/L (21-72); AST/SGOT 37 U/L (17-59); BLOOD UREA NITROGEN 7 mg/dl (9-20); CALCIUM 9.8 mg/dL (8.4-10.2); GFR NON-AFRICAN AMERICAN > 60
[2018-06-14] MEDS ORDERED: Sodium Chloride 0.9% 50 ML IV ONE (15:31)
[2018-06-14] MEDS ORDERED: Iohexol 300 100 ML IJ ONE (15:31)
--- NOTE | 2018-06-14 16:48 | CT ---
Date of service: 06/14/2018 PROCEDURE: CT Abdomen and Pelvis with contrast HISTORY: Abd pain COMPARISON: Abdomen pelvis CT with contrast 11/27/2017. TECHNIQUE: Following the intravenous administration of iodinated contrast material, a CT examination of the abdomen and pelvis performed from the domes of the diaphragms to the symphysis pubis with reformatted datasets provided in axial, sagittal and coronal planes. Oral contrast was not administered as per referring physician request. Coronal and sagittal reformats were generated. contrast dose: Omnipaque 300, 95 cc Radiation dose: Total exam DLP = 766.83 mGy-cm. This CT exam was performed using one or more of the following dose reduction techniques: Automated exposure control, adjustment of the mA and/or kV according to patient size, and/or use of iterative reconstruction technique. FINDINGS: LOWER THORAX: Unremarkable. LIVER: Hepatic steatosis reiterated without additional hepatic findings in the interval. GALLBLADDER AND BILE DUCTS: Unremarkable. PANCREAS: Unremarkable. No gross lesion or ductal dilatation. SPLEEN: Unremarkable. ADRENALS: Unremarkable. No mass. KIDNEYS AND URETERS: Unremarkable. No hydronephrosis. No solid mass. VASCULATURE: Unremarkable. No aortic aneurysm. No aortic atherosclerotic calcification or mural plaque present. BOWEL: Evaluation of the gastrointestinal tract is limited due to the lack of oral contrast administration. The stomach is essentially collapsed. No small or large bowel obstruction is appreciated and there is limited retained fecal material scattered throughout the large bowel. Limited sigmoid diverticulosis identified without diverticulitis. APPENDIX: Normal appendix. PERITONEUM: Unremarkable. No free fluid. No free air. LYMPH NODES: Unremarkable. No enlarged lymph nodes. BLADDER: Unremarkable. REPRODUCTIVE: Unremarkable. BONES: No acute fracture. OTHER FINDINGS: None. IMPRESSION: 1. No definitive acute abdominal or pelvic findings as discussed above. 2. Hepatic steatosis reiterated. 3. Stable colonic diverticulosis without diverticulitis (sigmoid segment).
[2018-06-14 17:07] VITALS: BP 133/79; PULSE 97; RESP 18; TEMP 98.7; O2SAT 99
== END 2018-06-14 17:14 | disposition home or self-care (01) ==
LOC: H.ER 12:44
DX: K57.30 Diverticulosis of large intestine without perforation or abscess without bleeding (principal); E11.9 Type 2 diabetes mellitus without complications; E78.00 Pure hypercholesterolemia, unspecified; K76.0 Fatty (change of) liver, not elsewhere classified; Z79.4 Long term (current) use of insulin
CPT/HCPCS: 74177; 80053; 85025; 99283; J7030; Q9967

== ENCOUNTER 2018-06-16 12:29 | Emergency (ER) | payer BC, OTHER ==
[2018-06-16 12:40] VITALS: BMI 29.7
[2018-06-16 12:41] VITALS: BP 162/85; TEMP 98.5
[2018-06-16] MEDS ORDERED: Sodium Chloride 0.9% 1,000 ML IV STA (13:36)
[2018-06-16 14:15] LABS: BASO % 0.2 % (0.0-2.0); EOS # 0.1 K/uL (0.0-0.7); LYMPH # 2.8 K/uL (1.0-4.3); LYMPH % 32.3 % (20.0-40.0); MEAN CORPUSCULAR HEMOGLOBIN 30.6 pg (27.0-31.0); MEAN CORPUSCULAR HGB CONC 33.3 g/dL (33.0-37.0); MEAN PLATELET VOLUME 11.4 fl (7.2-11.7); MONO # 0.8 K/uL (0.0-0.8); MONO % 9.2 % (0.0-10.0); NEUT % 57.3 % (50.0-75.0); NRBC % 0.2 % (0.0-0.0); RBC 4.58 Mil/uL (4.40-5.90); RED CELL DISTRIBUTION WIDTH 12.3 % (11.5-14.5); WHITE BLOOD COUNT 8.6 K/uL (4.8-10.8)
[2018-06-16 14:18] LABS: SQUAMOUS EPITHIAL < 1 /hpf (0-5); URINE BACTERIA RARE (<OCC); URINE BILIRUBIN NEGATIVE (NEGATIVE); URINE BLOOD NEGATIVE (NEGATIVE); URINE CLARITY CLEAR (Clear); URINE COLOR YELLOW (YELLOW); URINE GLUCOSE (UA) >=500 mg/dL (Normal); URINE LEUKOCYTE ESTERASE NEG Leu/uL (Negative); URINE PROTEIN NEGATIVE (NEGATIVE); URINE UROBILINOGEN 0.2-1.0 mg/dL (0.2-1.0)
[2018-06-16 14:20] LABS: PROTHROMBIN TIME 11.4 Seconds (9.8-13.1)
[2018-06-16 14:23] LABS: PARTIAL THROMBOPLASTIN TIME 32.8 Seconds (25.6-37.1)
[2018-06-16 14:32] LABS: ALB/GLOB RATIO 1.1 (1.0-2.1); ALBUMIN 4.6 g/dL (3.5-5.0); ALT/SGPT 60 U/L (21-72); AST/SGOT 49 U/L (17-59); BLOOD UREA NITROGEN 16 mg/dl (9-20); CALCIUM 10.3 mg/dL (8.4-10.2); GFR NON-AFRICAN AMERICAN > 60; LIPASE 103 U/L (23-300)
--- NOTE | 2018-06-16 14:52 | ED PDOC ---
HPI: Abdomen Time Seen by Provider: 06/16/18 13:00 Chief Complaint (Nursing): Abdominal Pain Chief Complaint (Provider): Abdominal Pain History Per: Patient History/Exam Limitations: no limitations Onset/Duration Of Symptoms: Days ( several) Current Symptoms Are (Timing): Still Present Location Of Pain/Discomfort: LLQ Quality Of Discomfort: "Pain" Additional Complaint(s): 37 year old male presents to the ED with nonradiating lower left quadrant pain for the last several days. Patient was initially seen in this ED, 2 days ago for the same complaint. At which time, he was diagnosed with diverticulosis and discharged with an Rx for Tylenol and Bentyl which has not provided any relief. Today, he had an episode of bright red bloody stools. His stool is brown in color. Patient denies history of GI bleed, nausea, vomiting or hematemesis. PMD: [place] Past Medical History Reviewed: Historical Data, Nursing Documentation, Vital Signs Vital Signs: Last Vital Signs Temp 98.5 F 06/16/18 12:40 Pulse 95 H 06/16/18 12:40 Resp 17 06/16/18 12:40 BP 162/85 H 06/16/18 12:40 Pulse Ox 97 06/16/18 12:40 - Medical History PMH: Arthritis, Back Problems (SCIATICA), Depression, Diabetes (type II), HTN, Hypercholesterolemia Denies: Anxiety, Bipolar Disorder, HIV, Personality Disorder, Post Traumatic Stress Disorder, Chronic Kidney Disease, Schizophrenia - Surgical History Surgical History: Back Surgery - Family History Family History: States: Unknown Family Hx - Immunization History Hx Tetanus Toxoid Vaccination: No Hx Influenza Vaccination: No Hx Pneumococcal Vaccination: No - Home Medications Home Medications: Ambulatory Orders Medication Instructions Recorded RX: Cyclobenzaprine [Flexeril] 10 mg PO Q8 01/24/18 RX: DULoxetine [Cymbalta] 60 mg PO HS 01/24/18 RX: Ibuprofen [Motrin Tab] 800 mg PO Q8 PRN 01/24/18 RX: Pregabalin [Lyrica] 75 mg PO Q12 01/24/18 RX: oxyCODONE/Acetaminophen 1 tab PO Q6 PRN 01/24/18 [Percocet 5/325 mg Tab] RX: Atorvastatin [Lipitor] 40 mg PO DAILY #30 tab 01/28/18 RX: Fenofibrate [Tricor] 145 mg PO DAILY #30 tab 01/28/18 RX: Insulin Detemir [Levemir] 46 units SC HS 30 Days #1 vial 01/28/18 RX: amLODIPine [Norvasc] 10 mg PO DAILY #30 tab 01/28/18 Acetaminophen with Codeine 1 tab PO Q8H #10 tab 06/14/18 [Tylenol with Codeine No. 3 300 mg-30 mg] Dicyclomine [Dicyclomine HCl] 10 mg PO Q8 #10 cap 06/14/18 RX: Ciprofloxacin [Cipro] 500 mg PO BID #14 tab 06/16/18 Tramadol HCl [Ultram] 50 mg PO BID PRN #10 tablet 06/16/18 metroNIDAZOLE [Flagyl] 500 mg PO BID #14 tab 06/16/18 - Allergies Allergies/Adverse Reactions: Allergies Allergy/AdvReac Type Severity Reaction Status Date / Time No Known Allergies Allergy Verified 06/16/18 12:48 Review of Systems ROS Statement: Except As Marked, All Systems Reviewed And Found Negative Gastrointestinal: Positive for: Abdominal Pain, Hematochezia. Negative for: Nausea, Vomiting, Hematemesis Physical Exam - Reviewed Nursing Documentation Reviewed: Yes Vital Signs Reviewed: Yes - Physical Exam Appears: Positive for: No Acute Distress Skin: Positive for: Normal Color, Warm, Dry Eye Exam: Positive for: Normal appearance Gastrointestinal/Abdominal: Positive for: Tenderness (mild left quadrant) Back: Positive for: Normal Inspection Extremity: Positive for: Normal ROM (upper and lower). Negative for: Pedal Edema, Deformity Neurologic/Psych: Positive for: Alert, Oriented (x3) - Laboratory Results Result Diagrams: 06/16/18 13:55 06/16/18 13:55 - ECG O2 Sat by Pulse Oximetry: 97 (RA) Pulse Ox Interpretation: Normal Medical Decision Making Medical Decision Making: Time: 1335 Initial Impression: Left lower quadrant pain Initial Plan: --Type and screen --CMP --Lipase --CBC with differentials --PTT --PT/INR --Morphine 2 mg IVP --NS --Zofran 4 mg IVP --Occult blood, stool --UA Scribe Attestation: Documented by Cherelle Torres, acting as a scribe for Roshan German PA-C Provider Scribe Attestation: All medical record entries made by the Scribe were at my direction and personally dictated by me. I have reviewed the chart and agree that the record accurately reflects my personal performance of the history, physical exam, medical decision making, and the department course for this patient. I have also personally directed, reviewed, and agree with the discharge instructions and disposition. Disposition - Clinical Impression Clinical Impression: Abdominal pain - Patient ED Disposition Is Patient to be Admitted: No - Disposition Referrals: Elias Mcbride MD, PhD [Staff Provider] - Mo Canas MD [Family Provider] - Disposition: Routine/Home Disposition Time: 14:59 Condition: IMPROVED Additional Instructions: RETURN TO ED IMMEDIATELY IF SYMPTOMS WORSEN FOLLOW UP WITH DR. MCBRIDE FOR FURTHER EVALUATION SAM CHRISTENSEN, thank you for letting us take care of you today. Your provider was Martin Child MD and you were treated for LT SIDE PAIN. The emergency medical care you received today was directed at your acute symptoms. If you were prescribed any medication, please fill it and take as directed. It may take several days for your symptoms to resolve. Return to the Emergency Department if your symptoms worsen, do not improve, or if you have any other problems. Please contact your doctor or call one of the physicians/clinics you have been referred to that are listed on the Patient Visit Information form that is included in your discharge packet. Bring any paperwork you were given at dis charge with you along with any medications you are taking to your follow up visit. Our treatment cannot replace ongoing medical care by a primary care provider outside of the emergency department. Thank you for allowing the [facility] [employer] team to be part of your care today. If you had an X-Ray or CT scan: A Radiologist will review the ED reading if any change in treatment is needed we will contact you. If you had a blood, urine, or wound culture: It will take several days for the results, if any change in treatment is needed we will contact you. If you had an STI test: It will take 48 hours for the results. Please call after 1 week if you have not heard back. Prescriptions: RX: Ciprofloxacin [Cipro] 500 mg PO BID #14 tab metroNIDAZOLE [Flagyl] 500 mg PO BID #14 tab Tramadol HCl [Ultram] 50 mg PO BID PRN #10 tablet PRN Reason: Other Instructions: Stomach Ache and Stomach Upset Forms: [employer] (Yakut) Print Language: VIETNAMESE
[2018-06-16 15:53] VITALS: PULSE 79; RESP 18
[2018-06-17 09:10] VITALS: O2SAT 97
== END 2018-06-16 15:25 | disposition home or self-care (01) ==
LOC: H.ER 12:29
DX: R10.32 Left lower quadrant pain (principal); E11.9 Type 2 diabetes mellitus without complications; E78.00 Pure hypercholesterolemia, unspecified; F32.9 Major depressive disorder, single episode, unspecified; I10 Essential (primary) hypertension; Z79.4 Long term (current) use of insulin
CPT/HCPCS: 80053; 81003; 83690; 85025; 85610; 85730; 86850; 86900; 96361; 96374; 96375; 99285; G0328; J2270; J2405; J7030

== ENCOUNTER 2018-06-22 06:07 | Day surgery (SDC) | payer BC, OTHER ==
[2018-06-19 09:35] VITALS: BMI 29.7
[2018-06-22 07:10] VITALS: RESP 18; O2SAT 95
[2018-06-22] MEDS ORDERED: Midazolam 2 MG/2 ML VIAL ONE (07:10)
[2018-06-22] MEDS ORDERED: Bupivacaine HCl 0.5% PF (30 ml) Inj ONE (07:20)
[2018-06-22] MEDS ORDERED: Bupivacaine HCl 0.25% PF (30 ml) Inj ONE (07:20)
[2018-06-22] MEDS ORDERED: MethylPREDNISolone Depo 40 mg/ml Inj ONE (07:20)
[2018-06-22] MEDS ORDERED: Lidocaine 1% Inj (20ml) ONE (07:21)
[2018-06-22] MEDS ORDERED: Iohexol 300 10 ML ONE (07:21)
[2018-06-22] MEDS ORDERED: Lactated Ringer's 1,000 ML IV ONE (07:25)
[2018-06-22] MEDS ORDERED: Bupivacaine 0.5% Inj(30mL) IJ ONE (07:45)
[2018-06-22] MEDS ORDERED: Lidocaine 1% Inj (20ml) IJ ONE (07:45)
[2018-06-22] MEDS ORDERED: HYDROmorphone 0.5 mg/0.5 ml ISec IVP PRN (08:01)
[2018-06-22] MEDS ORDERED: DiphenhydrAMINE 50 mg/ml Inj IVP PRN (08:02)
[2018-06-22] MEDS ORDERED: Lactated Ringer's 1,000 ML IV SCH (08:15)
--- NOTE | 2018-06-22 10:03 | OP ---
PROCEDURE DATE: 06/22/2018 PREOPERATIVE DIAGNOSIS: Failed back syndrome. POSTOPERATIVE DIAGNOSIS: Failed back syndrome. PROCEDURE: Right L3, L4, and L5 medial branch nerve blocks. SURGEON: Edouard Arora MD ANESTHESIOLOGIST: Felix Mancia MD TYPE OF ANESTHESIA: Monitored anesthesia care. COMPLICATIONS: None. SPECIMEN: None. DESCRIPTION OF PROCEDURE: As follows: After we had a discussion of the procedure with the patient including its risks, benefits, alternatives, outcome data, possibility of no effect or increased pain, the patient consented to the procedure. He denied any recent infection, bleeding tendencies, or being on anticoagulants. A decision was then made to proceed to the OR. The patient was placed on the fluoroscopy table in a prone position with two pillows underneath his abdomen. The back was prepped and draped in the usual sterile fashion. A sterile technique was adhered to during the entire procedure. The L3, L4, and L5 medial branch nerves were located at the intersection of the superior articular process and the transverse process of the L4 and L5 pedicle along with the sacral ala. The three above targeted areas were visualized on the right side by turning the fluoroscopy towards the right at approximately 15 degrees. The skin overlying the three above targeted areas was then infiltrated with 1% lidocaine using a 25-gauge needle. Subsequently, a 22-gauge 3.5-inch spinal needle was incrementally advanced under fluoroscopic guidance until tip of the needle made bony contact with all the three targeted areas. After satisfactory positioning of all three needles, approximately 3 mL of 0.5% Marcaine was injected. The needle was then removed and the patient's back was cleaned and dry bandages were applied. The patient was then transferred to recovery area in good condition without any signs of ASSEMBLER WET WASH toxicity or any neurological deficit. He will be following up in the office in approximately two to four weeks. Due to the patient's hyperglycemia, steroids was not administered during this injection. The patient has been instructed to monitor his blood sugar carefully. Edouard Arora MD
[2018-06-22 10:32] VITALS: BP 155/85; PULSE 91; TEMP 98.1
--- NOTE | 2018-06-22 10:56 | RAD ---
Date of service: 06/22/2018 PROCEDURE: Fluoroscopy up to 1 hr. HISTORY: PAIN MANAGEMENT COMPARISON: None TECHNIQUE: Standard protocol for this study/examination. FINDINGS: Total fluoroscopic time (continuous mode) utilized during the procedure 12.2 seconds. Total exam DLP: 3.05 (mGy). IMPRESSION: Less than 1 hr fluoroscopic assistance provided during performance of the procedure.
== END 2018-06-22 10:30 | disposition home or self-care (01) ==
LOC: H.OPSURG 06:07
PROVIDERS: ATTEND Anesthesiology
DX: M47.816 Spondylosis without myelopathy or radiculopathy, lumbar region (principal); E11.9 Type 2 diabetes mellitus without complications; I10 Essential (primary) hypertension
CPT/HCPCS: 64520; 82948; J1170; J2250; J3010; J7120

== ENCOUNTER 2018-10-05 09:28 | Day surgery (SDC) | payer BC, OTHER ==
--- NOTE | 2018-10-05 10:34 | CP.SDSHP ---
Same Day Surgery H & P - History Proposed Procedure: Lumbar medial branch nerve blocks Pre-Op Diagnosis: Lumbar spondylosis - Previous Medical/Surgical History Cardiac: Hypertension Endocrine/Metabolic: Diabetes Pain: 8.Very Severe - Allergies Allergies: Allergies No Known Allergies Allergy (Verified 06/22/18 06:46) - Physical Exam Neuro: WNL Heart: WNL Lungs: WNL - Impression Impression: Lumbar spondylosis Pt. Evaluated Today:Candidate for Anesthesia & Procedure: Yes Short Stay Discharge - Short Stay Discharge Admitting Diagnosis/Reason for Visit: M54.16 Disposition: HOME/ ROUTINE
[2018-10-05] MEDS ORDERED: Lactated Ringer's 1,000 ML IV ONE (10:45)
[2018-10-05 10:57] VITALS: RESP 18
[2018-10-05] MEDS ORDERED: Midazolam 2 MG/2 ML VIAL ONE (11:35)
[2018-10-05] MEDS ORDERED: LIDOCAINE 2% 10ML 20 MG/ML VIAL IJ ONE (11:37)
[2018-10-05] MEDS ORDERED: Bupivacaine HCl 0.5% PF (30 ml) Inj IJ ONE (11:37)
[2018-10-05] MEDS ORDERED: HYDROmorphone 0.5 mg/0.5 ml ISec ONE (11:47)
[2018-10-05] MEDS: HYDROmorphone 0.5 mg/0.5 ml ISec IVP PRN ×2 (12:00→12:15)
[2018-10-05] MEDS ORDERED: Lactated Ringer's 500 ML IV SCH (12:00)
[2018-10-05 14:27] VITALS: BP 112/78; PULSE 92; TEMP 98; O2SAT 95
--- NOTE | 2018-10-06 02:10 | OP ---
PROCEDURE DATE: 10/05/2018 PREOPERATIVE DIAGNOSIS: Lumbar spondylosis. POSTOPERATIVE DIAGNOSIS: Lumbar spondylosis. PROCEDURE: Right L3, L4, and L5 medial branch nerve block. ANESTHESIOLOGIST: . SURGEON: Edouard Arora MD ANESTHESIA TYPE: Monitored anesthesia care. COMPLICATIONS: None. SPECIMENS: None. DESCRIPTION OF PROCEDURE: As follows: After we had discussion of the procedure with the patient including its risks, benefits, alternatives, outcome data, possibility of no effect or increased pain, the patient consented to the procedure. He denies any recent infection, bleeding tendencies, or being on anticoagulants. A decision was then made to proceed to the OR. Due to his hyperglycemia, it was decided to do the procedure with cortisone. The patient was placed on the fluoroscopy table in a prone position with two pillows underneath his abdomen. The back was prepped and draped in the usual sterile fashion and a sterile technique was adhered to during the entire procedure. The L3, L4, and L5 medial branch nerves were located at the intersection of the superior articular process and the transverse process of the L4 and L5 pedicles along with the sacral ala. The procedure was performed on the right by turning the fluoroscopy towards the right at approximately 15 degrees. The skin overlying the three above targeted areas was then infiltrated with 1% lidocaine using 25-gauge needle. Subsequently, a 22-gauge 3.5-inch spinal needle was then incrementally advanced under fluoroscopic guidance until tip of the needle made bony contact with all three targeted areas. After satisfactory positioning of all three needles, approximately 3 mL of 0.5% Marcaine was injected. The needle was then removed, the patient's back was cleaned, and dry bandage was applied. The patient was then transferred to recovery area in good condition without any signs of WELT DRAWER toxicity or any neurological deficit. He will have a followup in office in approximately two to four weeks. Edouard Arora MD
--- NOTE | 2018-10-08 16:15 | RAD ---
Date of service: 10/05/2018 PROCEDURE: Intraoperative Fluoroscopy. HISTORY: PAIN MANAGEMENT FINDINGS: Fluoroscopic assistance was provided for cervical injections. Please refer to the operative report from BHUPINDER Horne. Total fluoroscopic time (continuous mode) utilized during the procedure 10.5 seconds. Total exam DLP: 3.21 (mGy).
== END 2018-10-05 14:25 | disposition home or self-care (01) ==
LOC: H.OPSURG 09:28
PROVIDERS: ATTEND Anesthesiology
DX: M47.816 Spondylosis without myelopathy or radiculopathy, lumbar region (principal); I10 Essential (primary) hypertension; E11.9 Type 2 diabetes mellitus without complications
CPT/HCPCS: 64493; 64494; 82948; J1170; J2250; J3010; J7120

== ENCOUNTER 2018-11-09 06:01 | Day surgery (SDC) | payer BC, OTHER ==
[2018-11-09 06:38] VITALS: RESP 18
[2018-11-09 06:45] VITALS: BMI 31.3
--- NOTE | 2018-11-09 07:40 | CP.SDSHP ---
Same Day Surgery H & P - History Proposed Procedure: Lumbar medial branch nerve radiofrequency Pre-Op Diagnosis: Lumbar facet arthropathy - Previous Medical/Surgical History Pulmonary: Emphysema/COPD Endocrine/Metabolic: Diabetes Pain: 9. - Allergies Allergies: Allergies No Known Allergies Allergy (Verified 11/09/18 06:46) - Physical Exam Vital Signs: Vital Signs 11/09/18 11/09/18 06:37 06:41 Temperature 97.9 F Pulse Rate 92 H 92 H Respiratory 18 Rate Blood Pressure 152/92 H O2 Sat by Pulse 96 Oximetry Neuro: WNL Heart: WNL Lungs: WNL GI: WNL - Impression Impression: Failed back syndrome Pt. Evaluated Today:Candidate for Anesthesia & Procedure: Yes Short Stay Discharge - Short Stay Discharge Admitting Diagnosis/Reason for Visit: M54.16 Disposition: HOME/ ROUTINE
[2018-11-09] MEDS ORDERED: Lactated Ringer's 1,000 ML IV ONE ×2 (08:00→09:17)
[2018-11-09] MEDS ORDERED: Midazolam 2 MG/2 ML VIAL ONE ×2 (08:00→08:02)
[2018-11-09] MEDS ORDERED: MethylPREDNISolone Depo 40 mg/ml Inj IM ONE (08:05)
[2018-11-09] MEDS ORDERED: Lidocaine 1% Inj (20ml) IJ ONE (08:05)
[2018-11-09] MEDS ORDERED: Bupivacaine 0.5% 50 ML IJ ONE (08:05)
[2018-11-09] MEDS: HYDROmorphone 0.5 mg/0.5 ml ISec IVP PRN ×7 (08:35→09:00)
[2018-11-09] MEDS ORDERED: Lactated Ringer's 1,000 ML IV SCH (08:45)
[2018-11-09 10:45] VITALS: PULSE 97
[2018-11-09 11:04] VITALS: BP 154/92; TEMP 97.3; O2SAT 96
--- NOTE | 2018-11-09 12:59 | RAD ---
Date of service: 11/09/2018 PROCEDURE: Intraoperative Fluoroscopy. HISTORY: PAIN MANAGEMENT FINDINGS: Fluoroscopic assistance was provided.. Fluoroscopy time = 59.9 sec. Radiation dose = 19.08 mGy. Please refer to the operative report from BHUPINDER Horne.
--- NOTE | 2018-11-09 14:57 | OP ---
PROCEDURE DATE: 11/09/2018 PREOPERATIVE DIAGNOSIS: Failed back syndrome. POSTOPERATIVE DIAGNOSIS: Failed back syndrome. PROCEDURE: Right L3, L4, and L5 medial branch nerve radiofrequency. SURGEON: Edouard Arora MD TYPE OF ANESTHESIA: Monitored anesthesia care. ANESTHESIA ADMINISTERED BY: Gunnar David MD COMPLICATIONS: None. SPECIMEN: None. DESCRIPTION OF PROCEDURE: As follows: After we had discussion of the procedure with the patient including its risks, benefits, alternatives, outcome data, and possibility of no effect or increased pain, the patient consented to the procedure. He denies any recent infections, bleeding tendencies, or being on anticoagulants. Decision was then made to proceed to the OR. The patient was placed on the fluoroscopy table in a prone position with two pillows underneath his abdomen. The back was prepped and draped in the usual sterile fashion. A sterile technique was adhered to during the entire procedure. The L3, L4, and L5 medial branch nerves were located at the intersection of the superior articular process and the transverse process of the L4 and L5 pedicles along with the sacral ala. The three above targeted areas were visualized by turning the fluoroscopy towards the right at approximately 15 degrees. The skin overlying the three above targeted areas was then infiltrated with 1% lidocaine using 25-gauge needle. Subsequently, a 22-gauge 3.5-inch Stimuplex needle was then incrementally advanced under fluoroscopic guidance until tip of the needle made bony contact with all three targeted areas. After satisfactory position of all three needles, sensory motor testing was carried out with satisfactory results. At this point, approximately 3 mL of 1% lidocaine was injected to anesthetize the nerves. Then, radiofrequency was carried out at 80 degrees Celsius for approximately one and a half minute. At the end of the procedure, each nerve was treated with a combination of 0.5% Marcaine and Depo-Medrol mixture. At the end of the case, the patient's back was cleaned and dry bandage was applied. The patient was then transferred to recovery area in good condition without any signs of PATCH PRESS OPERATOR toxicity or any neurological deficit. He will be following up in our office in approximately two to four weeks. Edouard Arora MD
== END 2018-11-09 11:04 | disposition home or self-care (01) ==
LOC: H.OPSURG 06:01
PROVIDERS: ATTEND Anesthesiology
DX: M54.16 Radiculopathy, lumbar region (principal); E11.9 Type 2 diabetes mellitus without complications; E78.5 Hyperlipidemia, unspecified; I10 Essential (primary) hypertension; G89.29 Other chronic pain; J44.9 Chronic obstructive pulmonary disease, unspecified
CPT/HCPCS: 64635; 64636; 82948; J1030; J1170; J2250; J2405; J3010; J7120